=== PATIENT | female | born 1965 | race Two or more races ===

== ENCOUNTER 2022-01-25 10:13 | Inpatient (IN) | payer BC ==
[2022-01-25] MEDS ORDERED: DILTIAZEM DRIP BOLUS FROM BAG 1 MG SOLN IV ONE (10:41)
--- NOTE | 2022-01-25 10:47 | ED ---
General Adult HPI - General Chief complaint: Altered Mental Status Stated complaint: Altered mental status Time Seen by Provider: 01/25/22 10:27 Source: patient, family Mode of arrival: ambulatory Limitations: no limitations - History of Present Illness Initial comments: Dictation was produced using [employer] dictation software. please excuse any gram matical, word or spelling errors. Chief Complaint: 56-year-old female presents to the emergency department for altered mental status History of Present Illness: Patient is a 56-year-old female she presents to the emergency department for altered mental status. Patient presents with was away on a work trip recently. He was gone for the majority of the week. Patient was at home by herself. They have dogs. came back yesterday. notes that while he was away he tried to contact threw the phone. States that she was not able to use her phone. She was able to send a short attacks. He came back yesterday noticed that she was very confused. She has not seen a doctor in 30+ years. Patient unable to provide history of present illness at this time. states the patient told her that she had a slight headache yesterday but denied any headache today. Patient to 's knowledge does not take any medications. believes that patient's last known normal was Thursday. Unable to obtain review of systems secondary to patient's mental status PHYSICAL EXAM: General Impression: Alert and oriented 1 out of 4, not in acute distress HEENT: Normocephalic atraumatic, extra-ocular movements intact, pupils equal and reactive to light bilaterally, mucous membranes moist. Cardiovascular: Irregular, tachycardic Chest: no retractions, no tachypnea Abdomen: abdomen soft, non-tender, non-distended, no organomegaly Musculoskeletal: Pulses present and equal in all extremities, no peripheral edema Motor: no focal deficits noted Neurological: CN II-XII grossly intact, patient moving all extremity is grossly, she is an ambulatory with no complications, patient uncooperative not follow commands, NIH of 3 Skin: Intact with no visualized rashes Psych: Normal affect and mood ED course: 56-year-old female presents emergency department for altered mental status. Vital signs done in triage shows heart rate of 85, blood pressure 181/144. EKG shows A. fib with rapid ventricular rate with a rate of 175. Patient does have focal neurologic deficits. Patient given an NIH score of 3-4. She's not candidate for alteplase given that last known normal was likely several days ago. reports the patient does not have a history of A. fib. Patient started on Cardizem. Laboratory evaluation obtained. CBC unremarkable. Coag panel is negative. Metabolic panel shows mild non-gap acidosis. Rest of labs are within acceptable limits. Computed tomography scan of the brain shows acute versus subacute CVA the left frontoparietal region extending into the left temporal lobe with encephalomalacia of the right inferior temporal lobe. CT angiogram of the CT and neck shows occlusion of the left anterior segment of the middle cerebral artery. Case is discussed with Dr. Nash who recommends the patient be admitted for hospital. He does recommend aspirin and withholding anticoagulation medications for 2-3 days. Patient given aspirin. Patient's RVR is improved with Cardizem. Patient will be admitted to [facility]. Case discussed with Dr. Denise. Cardiology and neurology consulted. EKG interpretation: Ventricular rate one 75, A. fib with RVR, QS 70, QTC 340. no QTC prolongation, no ST or T-wave changes noted. - Related Data Home Medications Medication Instructions Recorded Confirmed No Known Home Medications 01/25/22 01/25/22 Allergies Allergy/AdvReac Type Severity Reaction Status Date / Time No Known Allergies Allergy Verified 01/25/22 11:42 Review of Systems ROS Statement: Those systems with pertinent positive or pertinent negative responses have been documented in the HPI. ROS Other: All systems not noted in ROS Statement are negative. Past Medical History Past Medical History: No Reported History History of Any Multi-Drug Resistant Organisms: None Reported Past Surgical History: No Surgical Hx Reported Past Psychological History: No Psychological Hx Reported Smoking Status: Never smoker Past Alcohol Use History: Occasional Past Drug Use History: None Reported General Exam Limitations: no limitations Course Vital Signs 01/25/22 01/25/22 10:16 10:30 Temperature 97.7 F Pulse Rate 85 160 H Respiratory 18 18 Rate Blood Pressure 181/144 162/110 O2 Sat by Pulse 97 98 Oximetry Medical Decision Making - Lab Data Result diagrams: 01/25/22 10:44 01/25/22 10:44 Lab Results 01/25/22 01/25/22 01/25/22 Range/Units 10:44 10:44 10:44 WBC 6.9 (3.8-10.6) k/uL RBC 5.91 H (3.80-5.40) m/uL Hgb 16.0 (11.4-16.0) gm/dL Hct 50.6 H (34.0-46.0) % MCV 85.7 (80.0-100.0) fL MCH 27.0 (25.0-35.0) pg MCHC 31.6 (31.0-37.0) g/dL RDW 15.9 H (11.5-15.5) % Plt Count 170 (150-450) k/uL MPV 8.2 Neutrophils % 64 % Lymphocytes % 25 % Monocytes % 6 % Eosinophils % 1 % Basophils % 0 % Neutrophils # 4.4 (1.3-7.7) k/uL Lymphocytes # 1.7 (1.0-4.8) k/uL Monocytes # 0.4 (0-1.0) k/uL Eosinophils # 0.1 (0-0.7) k/uL Basophils # 0.0 (0-0.2) k/uL Hypochromasia Slight PT 11.8 (9.0-12.0) sec INR 1.1 (<1.2) APTT 22.7 (22.0-30.0) sec Sodium 138 (137-145) mmol/L Potassium 4.3 (3.5-5.1) mmol/L Chloride 108 H (98-107) mmol/L Carbon Dioxide 19 L (22-30) mmol/L Anion Gap 11 mmol/L BUN 21 H (7-17) mg/dL Creatinine 0.68 (0.52-1.04) mg/dL Est GFR (CKD-EPI)AfAm >90 (>60 ml/min/1.73 sqM) Est GFR (CKD-EPI)NonAf >90 (>60 ml/min/1.73 sqM) Glucose 110 H (74-99) mg/dL Calcium 9.7 (8.4-10.2) mg/dL Total Bilirubin 1.7 H (0.2-1.3) mg/dL AST 47 H (14-36) U/L ALT 40 H (4-34) U/L Alkaline Phosphatase 189 H (38-126) U/L Troponin I (0.000-0.034) ng/mL Total Protein 8.0 (6.3-8.2) g/dL Albumin 4.2 (3.5-5.0) g/dL 01/25/22 Range/Units 10:44 WBC (3.8-10.6) k/uL RBC (3.80-5.40) m/uL Hgb (11.4-16.0) gm/dL Hct (34.0-46.0) % MCV (80.0-100.0) fL MCH (25.0-35.0) pg MCHC (31.0-37.0) g/dL RDW (11.5-15.5) % Plt Count (150-450) k/uL MPV Neutrophils % % Lymphocytes % % Monocytes % % Eosinophils % % Basophils % % Neutrophils # (1.3-7.7) k/uL Lymphocytes # (1.0-4.8) k/uL Monocytes # (0-1.0) k/uL Eosinophils # (0-0.7) k/uL Basophils # (0-0.2) k/uL Hypochromasia PT (9.0-12.0) sec INR (<1.2) APTT (22.0-30.0) sec Sodium (137-145) mmol/L Potassium (3.5-5.1) mmol/L Chloride (98-107) mmol/L Carbon Dioxide (22-30) mmol/L Anion Gap mmol/L BUN (7-17) mg/dL Creatinine (0.52-1.04) mg/dL Est GFR (CKD-EPI)AfAm (>60 ml/min/1.73 sqM) Est GFR (CKD-EPI)NonAf (>60 ml/min/1.73 sqM) Glucose (74-99) mg/dL Calcium (8.4-10.2) mg/dL Total Bilirubin (0.2-1.3) mg/dL AST (14-36) U/L ALT (4-34) U/L Alkaline Phosphatase (38-126) U/L Troponin I 0.028 (0.000-0.034) ng/mL Total Protein (6.3-8.2) g/dL Albumin (3.5-5.0) g/dL Critical Care Time Critical Care Time: Yes Total Critical Care Time: 33 Disposition Clinical Impression: CVA (cerebral vascular accident), New onset a-fib Disposition: ADMITTED IP TO THIS HOSP Condition: Critical Referrals: None,Stated [Primary Care Provider] - 1-2 days
[2022-01-25] MEDS: DILTIAZEM 125 MG in SODIUM CHLORIDE 0.9% 100 ML IV SCH ×2 (10:52→21:47)
[2022-01-25 10:55] LABS: Basophils % (A) 0 %; Eosinophils # (A) 0.1 k/uL (0-0.7); Eosinophils % (A) 1 %; HCT 50.6 % (34.0-46.0); Hypochromasia Slight; Lymphocytes # (A) 1.7 k/uL (1.0-4.8); Lymphocytes % (A) 25 %; MCHC 31.6 g/dL (31.0-37.0); MCV 85.7 fL (80.0-100.0); Mean Platelet Volume 8.2; Monocytes # (A) 0.4 k/uL (0-1.0); Monocytes % (A) 6 %; Neutrophils # (A) 4.4 k/uL (1.3-7.7); Neutrophils % (A) 64 %; Platelet Count 170 k/uL (150-450); RBC 5.91 m/uL (3.80-5.40); RDW 15.9 % (11.5-15.5); WBC 6.9 k/uL (3.8-10.6)
[2022-01-25 11:03] LABS: ALT 40 U/L (4-34); AST 47 U/L (14-36); African American GFR (CKD) >90 (>60 ml/min/1.73 sqM); Albumin 4.2 g/dL (3.5-5.0); Alkaline Phosphatase 189 U/L (38-126); Anion Gap 11 mmol/L; Blood Urea Nitrogen 21 mg/dL (7-17); Calcium 9.7 mg/dL (8.4-10.2); Carbon Dioxide 19 mmol/L (22-30); Chloride 108 mmol/L (98-107); Glucose 110 mg/dL (74-99); Non-African American GFR(CKD) >90 (>60 ml/min/1.73 sqM); Potassium 4.3 mmol/L (3.5-5.1); Sodium 138 mmol/L (137-145); Total Bilirubin 1.7 mg/dL (0.2-1.3)
[2022-01-25 11:07] LABS: INR 1.1 (<1.2); Prothrombin Time 11.8 sec (9.0-12.0)
[2022-01-25 11:08] LABS: Partial Thromboplastin Time 22.7 sec (22.0-30.0)
--- NOTE | 2022-01-25 11:21 | CT ---
EXAMINATION TYPE: CT brain wo con CT DLP: 1136.8 mGycm, Automated exposure control for dose reduction was used. DATE OF EXAM: 01/25/2022 11:07 AM COMPARISON: None. CLINICAL INDICATION:Female, 56 years old with history of cva, Neuro Deficit TECHNIQUE: Brain: Multiple axial CT images of the brain were obtained without IV contrast. FINDINGS: Brain: Extra-axial spaces: No abnormal extra-axial fluid collections. 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 Cerebral parenchyma: There is loss of lewis-white differentiation of the left frontal parietal region extending into the right temporal lobe. Encephalomalacia of the and inferior right temporal lobe. No acute intraparenchymal hemorrhage or mass effect. The remainder of the lewis-white junctions are well differentiated. Cerebellum: Unremarkable. Mass effect: No evidence of midline shift. Intracranial vasculature: unremarkable Soft tissues: Normal. Calvarium/osseous structures: No depressed skull fracture. Paranasal sinuses and mastoid air cells: Mild scattered paranasal sinus disease. Visualized orbits: Orbital contents are intact. IMPRESSION: 1. Acute/subacute CVA of the left frontal parietal region extending into the left temporal lobe. 2. Encephalomalacia of the right inferior temporal lobe from remote injury.
[2022-01-25] MEDS ORDERED: ASPIRIN 81 MG PO STA (11:49)
--- NOTE | 2022-01-25 11:56 | CT ---
EXAMINATION TYPE: CT angio head neck CT DLP: 414.5 mGycm, Automated exposure control for dose reduction was used. DATE OF EXAM: 01/25/2022 11:32 AM COMPARISON: CT head same day.. CLINICAL INDICATION:Female, 56 years old with history of neurologic deficit, Neuro Deficit TECHNIQUE: Axially acquired helical CT angiogram of the head and neck was obtained with contrast util izing 75 cc of Isovue-370 administered intravenously. Axial images are supplemented with 3D reconstru ctions which were post-processed at an independent workstation. NASCET criteria used. FINDINGS: CTA HEAD: No evidence of acute intracranial hemorrhage, mass effect, or midline shift. The ventricles, sulci, a nd cisterns are unremarkable. Redemonstration of left frontal parietal region infarct extending into the temporal lobe. Encephaloma lacia of the right inferior temporal lobe. Left MCA M2 segment demonstrates abrupt cut off. The visualized portions of the internal carotid arteries, right middle cerebral arteries, anterior ce rebral arteries, and posterior cerebral arteries are patent. The basilar and vertebral arteries are patent. CTA NECK: Right Carotid System: The common carotid artery and external carotid artery are patent. The carotid bifurcation demonstrate s no evidence of hemodynamically significant stenosis. The remaining portions of the internal carotid artery demonstrate normal size without significant narrowing. Left Carotid System: The common carotid artery and external carotid artery are patent. The carotid bifurcation demonstrate s no evidence of hemodynamically significant stenosis. The remaining portions of the internal carotid artery demonstrate normal size without significant narrowing. Vertebral arteries are patent without evidence hemodynamically significant stenosis. There is a three-vessel aortic arch. The origins of the great vessels are patent. No evidence of hemo dynamically significant stenosis. There is a heterogenous thyroid gland scattered nodules. Intralobular septal thickening is seen withi n the lung apices. IMPRESSION: 1. Abrupt cut off of the left M2 segment of the MCA consistent with occlusion. 2. No evidence of dissection of the cervical internal carotid arteries or vertebral arteries or any evidence of significant stenosis at the carotid bifurcations. 3. No evidence of intracranial aneurysm. Redemonstration of encephalomalacia of remote right temporal lobe injury and acute/subacute CVA of th e left frontal parietal extending to the temporal lobe.
--- NOTE | 2022-01-25 14:12 | P.CRDCN ---
History of Present Illness Consult date: 01/25/22 History of present illness: History of Present Illness: The patient is a 56-year-old female who has not seen a physician in over 30 years who is brought into the emergency room with confusion. The history is obtained from her . Apparently he was out of town on business last week and when he called her and the texted her on she did not answer. He returned to town on Thursday and she was somewhat confused and that persisted today. She is moving, he did not notice a slurred speech but she appears to be unable to answer questions. She came into the emergency room and was noted to be in atrial fibrillation of unknown duration. She recalls that she went out for dinner on Thursday and she did not like the food but she cannot remember what happened on or yesterday. She denies any palpitations, chest discomfort or dyspnea. She has no prior history of PND, orthopnea or peripheral edema. She is usually active physically, walks the dog without symptoms. She has no history of documented diabetes, hypertension or hyperlipidemia but as noted she has not seen a physician in a long time. She takes no medication at home. She drinks caffeine occasionally and alcohol on a social basis. Review of Systems: Respiratory: No history of asthma, bronchitis or recent cough. GI: She had nausea and vomiting today. No history of peptic ulcer disease. No recent GI bleed. : No hematuria or dysuria. Nervous System: She has symptoms of confusion of unknown etiology Physical Examination: 56-year-old female alert confused, not able to answer question appropriately. Blood pressure running in the 160/120 with a heart rate in the 120s. Head: Normocephalic. Eyes: Sclerae nonicteric. Neck: Good carotid upstroke, no bruit, no jugular venous distention. Lungs: Clear to auscultation. Heart: Irregular rate and rhythm, tachycardic, S1-S2, no S3, no rub. No murmur. Abdomen: Soft nontender, positive bowel sounds no organomegaly. Extremities: Trace edema, intact distal pulses. Labs: Hemoglobin 5.9, BUN 21, creatinine 0.68, potassium 4.3. Total bilirubin 1.7, AST 47, ALT 40 with alk phos of 189. Troponin 0.028. EKG shows atrial fibrill ation with rapid ventricular response and nonspecific ST-T wave changes. Brain CT showed a subacute CVA of the left frontal parietal region extending to the left temporal lobe. CT angiogram of the carotids showed no evidence of high- grade obstruction except an abrupt cutoff of the left M2 segment of the MCA. Impression: 1. Acute CVA presenting with confusion 2. Atrial fibrillation of unknown duration with rapid ventricle response 3. Abnormal liver function test of unknown etiology or duration 4. Hypertension of unknown duration. Plan: 1. Obtain an echocardiogram with Doppler 2. Add beta heladio to control ventricular response and add hydrochlorothiazide for better blood pressure control, avoid an acute drop in the blood pressure. Continue IV Cardizem for now. 3. Follow liver function test 4. The patient will need to be anticoagulated but we will await 48 hours to prevent conversion to a hemorrhagic stroke 5. Depending on her progress further recommendations will be made. I discussed with the patient and her the findings and recommendations. Thank you for this consult we will follow with you. Past Medical History Past Medical History: No Reported History History of Any Multi-Drug Resistant Organisms: None Reported Past Surgical History: No Surgical Hx Reported Past Psychological History: No Psychological Hx Reported Smoking Status: Never smoker Past Alcohol Use History: Occasional Past Drug Use History: None Reported Medications and Allergies Home Medications Medication Instructions Recorded Confirmed Type No Known Home Medications 01/25/22 01/25/22 History Allergies Allergy/AdvReac Type Severity Reaction Status Date / Time No Known Allergies Allergy Verified 01/25/22 11:42 Physical Exam Vitals: Vital Signs Temp Pulse Resp BP Pulse Ox 01/25/22 12:00 126 H 20 166/128 98 01/25/22 11:30 125 H 16 161/126 98 01/25/22 11:00 128 H 16 170/121 99 01/25/22 10:45 136 H 16 151/123 99 01/25/22 10:30 145 H 16 163/125 99 01/25/22 10:16 97.7 F 85 18 181/144 97 Intake and Output 01/24/22 01/25/22 01/25/22 22:59 06:59 14:59 Other: Weight 84.912 kg Results 01/25/22 10:44 01/25/22 10:44 Cardiac Enzymes 01/25/22 01/25/22 Range/Units 10:44 10:44 AST 47 H (14-36) U/L Troponin I 0.028 (0.000-0.034) ng/mL Coagulation 01/25/22 Range/Units 10:44 PT 11.8 (9.0-12.0) sec APTT 22.7 (22.0-30.0) sec CBC 01/25/22 Range/Units 10:44 WBC 6.9 (3.8-10.6) k/uL RBC 5.91 H (3.80-5.40) m/uL Hgb 16.0 (11.4-16.0) gm/dL Hct 50.6 H (34.0-46.0) % Plt Count 170 (150-450) k/uL Comprehensive Metabolic Panel 01/25/22 Range/Units 10:44 Sodium 138 (137-145) mmol/L Potassium 4.3 (3.5-5.1) mmol/L Chloride 108 H (98-107) mmol/L Carbon Dioxide 19 L (22-30) mmol/L BUN 21 H (7-17) mg/dL Creatinine 0.68 (0.52-1.04) mg/dL Glucose 110 H (74-99) mg/dL Calcium 9.7 (8.4-10.2) mg/dL AST 47 H (14-36) U/L ALT 40 H (4-34) U/L Alkaline Phosphatase 189 H (38-126) U/L Total Protein 8.0 (6.3-8.2) g/dL Albumin 4.2 (3.5-5.0) g/dL Current Medications Generic Name Dose Route Start Last Admin Trade Name Freq PRN Reason Stop Dose Admin Aspirin 81 mg 01/27/22 09:00 Aspirin 81 Mg PO DAILY [facility] Atorvastatin Calcium 80 mg 01/25/22 21:00 Atorvastatin 80 Mg Tab PO HS [facility] Docusate Sodium 100 mg 01/25/22 21:00 Docusate 100 Mg Cap PO BID [facility] Diltiazem HCl 125 mg/ Sodium 125 mls @ 10 mls/hr 01/25/22 11:00 01/25/22 10:52 Chloride IV 10 mg/hr .[id number] KAMILAH 10 mls/hr Administration 10 MG/HR Sodium Chloride 1,000 mls @ 100 mls/hr 01/25/22 12:15 Saline 0.9% IV .Q10H KAMILAH Metoprolol Tartrate 25 mg 01/25/22 21:00 Metoprolol Tartrate 25 Mg Tab PO BID KAMILAH Intake and Output 01/24/22 01/25/22 01/25/22 22:59 06:59 14:59 Other: Weight 84.912 kg Patient Weight 01/26/22 06:59 Weight 84.912 kg 01/25/22 10:44 01/25/22 10:44
--- NOTE | 2022-01-25 14:58 | XR ---
EXAMINATION TYPE: XR chest 1V portable DATE OF EXAM: 01/25/2022 COMPARISON: NONE HISTORY: Atrial fibrillation TECHNIQUE: Single view FINDINGS: Heart is enlarged. There is some pulmonary vascular congestion. There are chest leads. Cost ophrenic angles are clear. IMPRESSION: Mild congestive heart failure.
[2022-01-25] MEDS: SODIUM CHLORIDE 0.9% 1,000 ML IV SCH ×2 (15:09→21:55)
[2022-01-25] MEDS: hydroCHLOROthiazide 25 MG TAB PO SCH (15:10)
--- NOTE | 2022-01-25 15:25 | P.HPIM ---
History of Present Illness H&P Date: 01/25/22 Chief Complaint: Confusion, expressive aphasia 56-year-old woman with no documented past medical history, though she has not seen a physician for the last 30 years, never smoker, no family history of heart attack or stroke presented to the emergency department with 2-3 days of increased confusion, especially aphasia. Apparently her went on a work trip, and while he was gone, patient was not able to answer her phone, when he returned from a trip, he noted that his was quite confused, having trouble getting words out. When I ask her if she is having trouble expressing her thoughts, she nods to me that she is having this issue. When I asked her if she feels clear of thought, but having trouble translating that actual words, she nods again. Patient denies fevers, chills, nausea, vomiting, chest pain, palpitations, syncope, presyncope, cough, dyspnea, abdominal pain, constipation, diarrhea, dysuria, dyschezia, numbness/weakness of extremities. Patient denies any loss of sensation in all 4 extremities. In the emergency room, patient is afebrile, 166/128, heart rate is 126, 98% on room air. CBC is unremarkable. Chemistries are remarkable for mild non-anion gap acidosis, elevated BUN to 21. She also has mildly elevated bilirubin to 1.7, AST/ALT 47/40, alkaline phosphatase is 189. Initial troponin is negative. Coagulation profile is normal. Initial brain CT showed acute/subacute CVA of the left frontal parietal region extending into the left temporal lobe as well as encephalomalacia of the right inferior temporal lobe from remote injury. CT angiography of the head and neck shows abrupt cut off of the left M2 segment of the MCA consistent with occlusion with no evidence of dissection in the cervical internal carotid arteries and vertebral arteries. Patient's neck showed EKG demonstrated atrial fibrillation with rapid ventricular response to 175. Chest x-ray demonstrates cardiomegaly with mild venous congestion. These findings were discussed with Dr. Nash, neuro interventionalist, who recommended medical management considering the duration of symptoms. He also recommended holding off on anticoagulation for at least 48 hours if not longer. In the interim, patient was given aspirin, started on statin. Patient did pass bedside swallow. Patient was admitted to the hospitalist service for further management, neurolo gy and cardiology were consulted for further recommendations. All Systems reviewed and pertinent positives and negatives noted in HPI, all other symptoms are negative Gen: awake, alert HEENT: normocephalic, atraumatic, good hearing acuity, moist mucous membranes Resp: good air exchange, breathing comfortably with no accessory muscle use CVS: good distal perfusion x 4, GI: soft, NTTP, ND : no SPT, no CVAT, hernandez catheter not present MSK: no pitting edema, no clubbing Neuro: non-focal, moving all extremities with 5 out of 5 motor strength, no reported loss of sensation to light touch, expressive aphasia, mild right-sided chela-neglect Psych: cooperative, euthymic mood Labs and imaging were reviewed as above Assessment/plan: Acute embolic stroke Hypertensive urgency -Admit to inpatient, telemetry -Cardiology consult -Neurology consult -Aspirin 325 once, followed by aspirin 81 mg daily -Hold off on anticoagulation for 2-5 days, defer to neurology -Continue statin -PT/OT -Speech therapy -Started hydrochlorothiazide -Lipid panel, A1c, TSH with reflex to free T4 -Echocardiogram -MRI of the brain Paroxysmal atrial fibrillation with rapid ventricular response -Anticoagulation as above -Continue diltiazem drip Volume overload Elevated liver enzymes -Suspect secondary to heart failure -Started the hydrochlorothiazide by cardiology -Follow up echocardiogram as above -Ultrasound of the liver -BNP pending Patient is a full code DVT prophylaxis is on hold given size of the stroke and risk of hemorrhagic conversion Past Medical History Past Medical History: No Reported History History of Any Multi-Drug Resistant Organisms: None Reported Past Surgical History: No Surgical Hx Reported Past Psychological History: No Psychological Hx Reported Smoking Status: Never smoker Past Alcohol Use History: Occasional Past Drug Use History: None Reported Medications and Allergies Home Medications Medication Instructions Recorded Confirmed Type No Known Home Medications 01/25/22 01/25/22 History Allergies Allergy/AdvReac Type Severity Reaction Status Date / Time No Known Allergies Allergy Verified 01/25/22 11:42 Physical Exam Osteopathic Statement: *. No significant issues noted on an osteopathic structural exam other than those noted in the History and Physical/Consult. Vitals: Vital Signs Temp Pulse Resp BP Pulse Ox 01/25/22 12:00 126 H 20 166/128 98 01/25/22 11:30 125 H 16 161/126 98 01/25/22 11:00 128 H 16 170/121 99 01/25/22 10:45 136 H 16 151/123 99 01/25/22 10:30 145 H 16 163/125 99 01/25/22 10:16 97.7 F 85 18 181/144 97 Intake and Output 01/25/22 01/25/22 01/25/22 06:59 14:59 22:59 Other: Weight 84.912 kg Results CBC & Chem 7: 01/25/22 10:44 01/25/22 10:44 Labs: Abnormal Lab Results - Last 24 Hours (Table) 01/25/22 01/25/22 Range/Units 10:44 10:44 RBC 5.91 H (3.80-5.40) m/uL Hct 50.6 H (34.0-46.0) % RDW 15.9 H (11.5-15.5) % Chloride 108 H (98-107) mmol/L Carbon Dioxide 19 L (22-30) mmol/L BUN 21 H (7-17) mg/dL Glucose 110 H (74-99) mg/dL Total Bilirubin 1.7 H (0.2-1.3) mg/dL AST 47 H (14-36) U/L ALT 40 H (4-34) U/L Alkaline Phosphatase 189 H (38-126) U/L
[2022-01-25 16:12] LABS: T4, Free (Free Thyroxine) >6.99 ng/dL (0.78-2.19)
[2022-01-25 16:23] LABS: Glucose,Whole Blood 77 mg/dL (75-99)
--- NOTE | 2022-01-25 16:48 | ECHOF ---
Referral Reason:Thrombus MEASUREMENTS -------- HEIGHT: 170.2 cm WEIGHT: 84.8 kg BP: IVSd: 1.1 cm (0.6 - 1.1) LVIDd: 5.6 cm (3.9 - 5.3) LVPWd: 1.2 cm (0.6 - 1.1) EDV(Teich): 152 ml IVSs: 1.3 cm LVIDs: 4.8 cm LVPWs: 1.6 cm %IVS Thck: 18 % ESV(Teich): 108 ml EF(Teich): 29 % %FS: 14 % SV(Teich): 43 ml RVIDd: 2.9 cm (< 3.3) RA Diam: 6.2 cm LALs A4C: 7.4 cm LAAs A4C: 32.5 cm LAESV A-L A4C: 122 ml LAESV MOD A4C: 117 ml LALs A2C: 6.5 cm LAAs A2C: 33.3 cm LAESV A-L A2C: 145 ml LAESV MOD A2C: 136 ml LAESV(A-L): 142 ml LAESV Index (A-L): 72.01 ml/m Ao Diam: 3.1 cm (2.0 - 3.7) LA Diam: 4.4 cm (2.7 - 3.8) AV Cusp: 1.7 cm (1.5 - 2.6) EPSS: 1.7 cm LVOT Vmax: 1.23 m/s LVOT maxP.02 mmHg AV Vmax: 1.36 m/s AV maxP.38 mmHg TR Vmax: 3.22 m/s TR maxP.52 mmHg RAP: 5.00 mmHg RVSP: 46.52 mmHg %FS: 12.35 % EDV(Teich): 155.09 ml EF(Teich): 26.27 % ESV(Teich): 114.34 ml IVSd: 1.32 cm (0.6 - 1.1) IVSs: 1.39 cm LVIDd: 5.62 cm (3.9 - 5.3) LVIDs: 4.93 cm LVPWd: 1.28 cm (0.6 - 1.1) LVPWs: 1.67 cm MV EF SLOPE: 127.89 mm/s (70 - 150) MV EXCURSION: 18.39 mm (> 18.000) SV(Teich): 40.75 ml FINDINGS -------- Atrial fibrillation. This was a technically difficult study with suboptimal views. The left ventricle is mildly dilated. There is mild concentric left ventricular hypertrophy. Ther e is severe global hypokinesis of LV . Overall left ventricular systolic function is severely impai red with, an EF between 25 - 30 %. The right ventricle is normal in size. LA is severely dilated >40 ml/m2 The right atrium is moderately enlarged. xx ml of Lumason was utilized for enhancement of images. Interatrial and interventricular septum intact. There is mild aortic valve sclerosis. There is no evidence of aortic regurgitation. There is no e vidence of aortic stenosis. The mitral valve leaflets are mildly thickened. Moderate mitral regurgitation is present. Moderate tricuspid regurgitation present. There is moderate pulmonary hypertension. The right yu tricular systolic pressure, as measured by Doppler, is 46.52mmHg. The pulmonic valve was not well visualized. There is no pulmonic regurgitation present. Possible Thrombus in LV Tennyson The aortic root size is normal. There is no pericardial effusion. CONCLUSIONS -------- 1. Atrial fibrillation. 2. This was a technically difficult study with suboptimal views. 3. The left ventricle is mildly dilated. 4. There is mild concentric left ventricular hypertrophy. 5. There is severe global hypokinesis of LV . 6. Overall left ventricular systolic function is severely impaired with, an EF between 25 - 30 %. 7. LA is severely dilated >40 ml/m2 8. The right atrium is moderately enlarged. 9. There is mild aortic valve sclerosis. 10. Moderate mitral regurgitation is present. 11. Moderate tricuspid regurgitation present. 12. There is moderate pulmonary hypertension. 13. Possible Thrombus in LV Tennyson NUT SHELLER: Sonja Okeefe RDCS
[2022-01-25 17:31] LABS: Glucose,Whole Blood 79 mg/dL (75-99)
[2022-01-25 18:30] LABS: Glucose,Whole Blood 96 mg/dL (75-99)
--- NOTE | 2022-01-25 19:00 | US ---
EXAMINATION TYPE: US abdomen complete DATE OF EXAM: 01/25/2022 COMPARISON: NONE CLINICAL HISTORY: elevated liver enzymes. Elevated LFT's EXAM MEASUREMENTS: Liver Length: 13.0 cm Gallbladder Wall: 0.2 cm CBD: 0.3 cm Spleen: Unable to visualize Right Kidney: 10.7 x 4.5 x 4.4 cm Left Kidney: 9.5 x 4.8 x 5.2 cm AMS, poor historian, anxious pt, limited visualization Pancreas: Obscured by bowel gas Liver: Coarse echotexture Gallbladder: Two probable polyps visualized, larger one posterior wall Evidence for sonographic Gallegos's sign: No CBD: wnl Spleen: Obscured by overlying bowel gas Right Kidney: wnl, lower pole gassed out Left Kidney: No evidence of hydro, mostly gassed out Upper IVC: wnl Abd Aorta: Obscured by overlying bowel gas IMPRESSION: 10 mm nonshadowing echogenic foci in the gallbladder probably related to polyps. No defin ite gallstones. No dilated ducts. No free fluid.
[2022-01-25] MEDS ORDERED: HEPARIN SODIUM 1,000 UN/ML (10ML VL) IV PRN (19:13)
[2022-01-25] MEDS ORDERED: FUROSEMIDE 10 MG/ML 4 ML VIAL IV STA (19:18)
[2022-01-25 20:01] LABS: Basophils % (A) 0 %; Eosinophils % (A) 0 %; HCT 49.4 % (34.0-46.0); HGB 15.7 gm/dL (11.4-16.0); Hypochromasia Slight; Lymphocytes # (A) 2.5 k/uL (1.0-4.8); Lymphocytes % (A) 32 %; MCH 27.6 pg (25.0-35.0); MCHC 31.8 g/dL (31.0-37.0); MCV 86.8 fL (80.0-100.0); Mean Platelet Volume 9.5; Monocytes # (A) 0.6 k/uL (0-1.0); Monocytes % (A) 7 %; Neutrophils # (A) 4.3 k/uL (1.3-7.7); Neutrophils % (A) 56 %; Platelet Count 186 k/uL (150-450); RDW 15.8 % (11.5-15.5); WBC 7.6 k/uL (3.8-10.6)
[2022-01-25 20:11] LABS: INR 1.2 (<1.2); Prothrombin Time 12.4 sec (9.0-12.0)
[2022-01-25] MEDS: HEPARIN SOD,PORK IN 0.45% NACL 25,000 UNIT in 0.45% NACL 1 250ML.BAG IV SCH (20:44)
[2022-01-25] MEDS ORDERED: METOPROLOL TARTRATE 25 MG TAB PO SCH (21:00)
[2022-01-25] MEDS: ATORVASTATIN 80 MG TAB PO SCH (21:17)
[2022-01-25] MEDS: DOCUSATE 100 MG CAP PO SCH (21:17)
[2022-01-25] MEDS: methIMAzole 5 MG TAB PO SCH (21:48)
--- NOTE | 2022-01-25 23:13 | P.CNNES ---
History of Present Illness Consult date: 01/25/22 Requesting physician: Sagar Denise Reason for Consult: Acute embolic stroke History of Present Illness: Patient is a 52-year-old right-handed female who was brought to the hospital this morning at 10:16 a.m. for altered mental status, and speech difficulty. Patient's was also present, who provided most of the history. Patient's has gone to a trip to [place] from Thursday through Thursday past week. He noticed that patient stopped exiting or contacting him on , 2 days ago. The last asked he received from her was from 11:44 AM on . When he came back home yesterday on Thursday at 5 PM, he noticed that she was slightly disoriented, but physically was okay, walking well, complaining of some headache. They went to bed at 9 PM. This morning patient's asked her why she was not responding to assist asked, she mentioned that she did not know how to use a phone. Patient's got concerned and brought her to the urgent care, from where they were referred to [facility]. Patient's vitals on arrival blood pressure 181/144, which came down to 162/110. Pulse rate 85, temperature 97.7. Patient's blood tests shows WBC 6.9 hemoglobin 16.0, platelets are normal. PT/PTT is normal. Electrolytes and renal functions normal. AST 47, ALT 40, troponin negative, TSH is <0.015, free T4 is > 6.99. Computed tomography scan of the head revealed acute/subacute CVA of the left frontal parietal region extending into the left temporal lobe. Encephalomalacia of the right inferior temporal lobe from remote injury. I personally reviewed computed tomography scan of the head, and it appears that patient has 3 different ischemic strokes of 3 different chronicity. The most recent is involving the left occipital region, then the left posterior parietal region and the most older one involving the right posterior temporal region. No hemorrhagic conversion. CTA of head and neck showed an abrupt cutoff of the left M2 segment of the MCA consistent with occlusion. No evidence of dissection of the cervical internal carotid arteries or vertebral arteries or any evidence of significant stenosis at the carotid bifurcations. No evidence of intracranial aneurysm. Redemonstration of encephalomalacia of remote right temporal lobe injury and acute/subacute CVA of the left frontal parietal extending to the left temporal lobe. EKG shows atrial fibrillation with rapid ventricular rate. This is new onset. Patient denies any history of tobacco, drinks alcohol very occasionally, denies any blood pressure or diabetes. She is otherwise healthy, only takes vitamins including vitamin D and multivitamins and some glucosamine. The nurses reported that patient has impaired judgment. When she is trying to drink water with the right hand, she spills it over on her face. Review of Systems Patient has been having some sinus congestion, cough. Denies any chest pain, denies any visual symptoms, she does feel very tired. She admits to having some difficulty swallowing, but could not tell detail as if it was related to liquids or solid food items. Patient has some tremors. Denies any fever or chills. All other 14 point review systems reviewed, unremarkable except as per HPI. Past Medical History Past Medical History: No Reported History History of Any Multi-Drug Resistant Organisms: None Reported Past Surgical History: No Surgical Hx Reported Past Psychological History: No Psychological Hx Reported Smoking Status: Never smoker Past Alcohol Use History: Occasional Past Drug Use History: None Reported Medications and Allergies Home Medications Medication Instructions Recorded Confirmed Type No Known Home Medications 01/25/22 01/25/22 History Allergies Allergy/AdvReac Type Severity Reaction Status Date / Time No Known Allergies Allergy Verified 01/25/22 11:42 Physical Examination - Vital Signs Vital Signs: Vital Signs Temp Pulse Pulse Resp BP BP Pulse Ox 01/25/22 16:53 98.2 F 92 18 190/93 94 L 01/25/22 12:00 126 H 20 166/128 98 01/25/22 11:30 125 H 16 161/126 98 01/25/22 11:00 128 H 16 170/121 99 01/25/22 10:45 136 H 16 151/123 99 01/25/22 10:30 145 H 16 163/125 99 01/25/22 10:16 97.7 F 85 18 181/144 97 Intake and Output 01/25/22 01/25/22 01/25/22 06:59 14:59 22:59 Other: Weight 84.912 kg 84.912 kg Patient is a middle aged female, who appears slightly older than her stated age. Patient is alert awake oriented, appears obviously aphasic. Patient able to name simple objects like years, then, but could not name knuckles. She has some paraphasic errors, as she stated "contacts" for eyeglasses presented. She cannot repeat, although she follows directions to some extent. Patient could not read "point to the window", or follow this direction. She was able to read one word "apple". She has not fully fluent. Significant word hesitancy, halted speech. Attention, concentration and fund of knowledge is very limited due to aphasia. On cranial examination, pupils are equal, round and reacting to light, visual f ields revealed obvious right homonymous hemianopia. Her extraocular muscles are intact with no nystagmus. Face is symmetric, tongue protrudes to the midline. Palatal elevation and sensation normal, hearing and shoulder shrug normal, facial sensation normal. Shoulder shrug normal. On muscle strength testing, there is right upward pronation, no drift and the strength is normal in arms and legs distally and proximally. Deep tendon reflexes are 2 in the upper limbs, 1+ in the lower limbs and p lantars downgoing. Sensory to touch is equal with no neglect. Cerebellar function showed ataxia for [id number] testing on the right, partly due to homonymous hemianopia with impaired judgment. Tone and bulk of muscles normal. Gait deferred, but patient's states she has been walking fine. On general examination, there is no carotid bruit or murmur, S1-S2 audible. Abdomen is soft nontender. Chest is clear. Peripheral pulses are present. No edema. Results - Laboratory Findings CBC and BMP: 01/25/22 19:37 01/25/22 10:44 Abnormal Lab Findings: Abnormal Labs 01/25/22 01/25/22 01/25/22 10:44 10:44 10:44 RBC 5.91 H Hct 50.6 H RDW 15.9 H Chloride 108 H Carbon Dioxide 19 L BUN 21 H Glucose 110 H Total Bilirubin 1.7 H AST 47 H ALT 40 H Alkaline Phosphatase 189 H TSH <0.015 L Free T4 >6.99 H Assessment and Plan Assessment: * Acute ischemic stroke, multifocal region, most likely related to cardioembolism. Patient has significant expressive aphasia, right homonymous hemianopia. * New onset atrial fibrillation with rapid ventricular rate. * New onset CHF with decreased ejection fraction * Hyperthyroidism, newly diagnosed. * Abnormal hepatic enzymes. * Hypertension Plan: * Patient's 2-D echo revealed atrial fibrillation, left ventricle is mildly dilated. Mild concentric LVH. Severe global hypokinesis of left ventricle. Left ventricle systolic function is severely impaired with EF between 25-30%. Left atrium is severely dilated. Right atrium is moderately dilated. Possible thrombus in the left ventricular apex. * Although initial recommendation was to hold off on anticoagulation for 5 days, but based upon the 2-D echo report, and presence of possible thrombus in the left ventricle, the benefits of anticoagulation significantly outweigh the potential risk of hemorrhagic side effects. Patient will be started on low intensity heparin infusion without bolus. * Patient will be continued on aspirin 81 mg. * Fasting a.m. lipid panel, hemoglobin A1c. * Continue telemetry monitoring. * Keep systolic blood pressure <160, diastolic <110. * MRI of brain evaluate for acute stroke, rule out hemorrhagic conversion. * Treatment of hyperthyroidism as per IM. Patient to be transferred to ICU. * Discussed with primary physician, and patient's family in detail. * Neurology will follow. Thank you for the consult. Time with Patient: Greater than 30 (Complexity very high.)
[2022-01-26 00:01] LABS: Glucose,Whole Blood 94 mg/dL (75-99)
[2022-01-26 04:06] LABS: Basophils # (A) 0.1 k/uL (0-0.2); Basophils % (A) 1 %; Eosinophils % (A) 0 %; HCT 51.6 % (34.0-46.0); HGB 15.9 gm/dL (11.4-16.0); Hypochromasia Slight; Lymphocytes # (A) 1.8 k/uL (1.0-4.8); Lymphocytes % (A) 24 %; MCH 26.6 pg (25.0-35.0); MCHC 30.7 g/dL (31.0-37.0); MCV 86.6 fL (80.0-100.0); Mean Platelet Volume 9.6; Monocytes # (A) 0.6 k/uL (0-1.0); Monocytes % (A) 8 %; Neutrophils # (A) 4.9 k/uL (1.3-7.7); Neutrophils % (A) 64 %; Platelet Count 179 k/uL (150-450); RBC 5.95 m/uL (3.80-5.40); RDW 15.4 % (11.5-15.5); WBC 7.6 k/uL (3.8-10.6)
[2022-01-26 04:15] LABS: African American GFR (CKD) >90 (>60 ml/min/1.73 sqM); Anion Gap 14 mmol/L; Blood Urea Nitrogen 18 mg/dL (7-17); Calcium 9.6 mg/dL (8.4-10.2); Carbon Dioxide 21 mmol/L (22-30); Chloride 102 mmol/L (98-107); Glucose 96 mg/dL (74-99); Magnesium 1.6 mg/dL (1.6-2.3); Non-African American GFR(CKD) >90 (>60 ml/min/1.73 sqM); Potassium 3.7 mmol/L (3.5-5.1); Sodium 137 mmol/L (137-145)
[2022-01-26 04:19] LABS: INR 1.2 (<1.2); Partial Thromboplastin Time 34.6 sec (22.0-30.0); Prothrombin Time 12.6 sec (9.0-12.0)
[2022-01-26 05:52] LABS: Glucose,Whole Blood 83 mg/dL (75-99)
[2022-01-26] MEDS: DILTIAZEM 125 MG in SODIUM CHLORIDE 0.9% 100 ML IV SCH (07:32)
--- NOTE | 2022-01-26 09:18 | P.PN ---
Subjective Progress Note Date: 01/26/22 History of Present Illness: The patient is a 56-year-old female who has not seen a physician in over 30 ye ars who is brought into the emergency room with confusion. The history is obtained from her . Apparently he was out of town on business last week and when he called her and the texted her on she did not answer. He returned to town on Thursday and she was somewhat confused and that persisted today. She is moving, he did not notice a slurred speech but she appears to be unable to answer questions. She came into the emergency room and was noted to be in atrial fibrillation of unknown duration. She recalls that she went out for dinner on Thursday and she did not like the food but she cannot remember what happened on or yesterday. She denies any palpitations, chest discomfort or dyspnea. She has no prior history of PND, orthopnea or peripheral edema. She is usually active physically, walks the dog without symptoms. She has no history of documented diabetes, hypertension or hyperlipidemia but as noted she has not seen a physician in a long time. She takes no medication at home. She drinks caffeine occasionally and alcohol on a social basis. January 26: The patient has been transferred to the ICU. She remains awake but confused. In atrial fibrillation with controlled ventricular response. Her echocardiogram yesterday showed severe cardiomyopathy with possible apical thrombus. She had moderate mitral and tricuspid regurgitation. She continues to be on IV Cardizem and was started on IV heparin yesterday. There is evidence of severe hyperthyroidism that could be the cause of her atrial fibrillation. Physical Examination: Blood pressure 118/70 with a heart rate in the 70s, awake alert confused, not sure where she is Head: Normocephalic. Eyes: Sclerae nonicteric. Neck: Good carotid upstroke, no bruit, no jugular venous distention. Lungs: Clear to auscultation. Heart: Irregular rate and rhythm, S1-S2, no S3, no rub. Holosystolic murmur at the base. Abdomen: Soft nontender, positive bowel sounds no organomegaly. Extremities: No edema, intact distal pulses. Labs: BUN 18, creatinine 0.67, potassium 3.7, hemoglobin 15.9 Impression: 1. CVA with abnormal CT angiogram 2. Atrial fibrillation of unknown duration 3. Cardiomyopathy, severe of unknown duration or etiology was possible apical thrombus 4. Hyperthyroidism 5. Confusion related to the stroke Plan: 1. Stop IV Cardizem and increase beta heladio 2. Add low dose DUSTIN inhibitor 3. Continue anticoagulation 4. Treatment of hyperthyroidism her primary care physician 5. The findings were discussed with the patient and her . Objective - Vital Signs Vital signs: Vital Signs Temp 98.2 F 01/26/22 04:00 Pulse 72 01/26/22 07:00 Resp 21 01/26/22 07:00 BP 118/77 01/26/22 07:00 Pulse Ox 93 L 01/26/22 07:00 Intake & Output 01/25/22 01/26/22 01/26/22 18:59 06:59 18:59 Intake Total 561.023 122.5 Output Total 2050 0 Balance -1488.977 122.5 Weight 84.912 kg 85 kg Intake: IV 375 25 Sodium Chloride 0.9% 1, 375 25 000 ml @ 25 mls/hr IV . Q24H KAMILAH Rx#:[id number] Intake, IV Titration 186.023 97.5 Amount Diltiazem 125 mg In 109.167 97.5 Sodium Chloride 0.9% 100 ml @ 10 MG/HR 10 mls/hr IV .[id number] KAMILAH Rx#: [id number] Heparin Sod,Pork in 0.45% 76.856 NaCl 25,000 unit In 0.45 % NaCl 1 250ml.bag @ 11. 78 UNITS/KG/HR 10.003 mls /hr IV .Q24H KAMILAH Rx#: [id number] Output: Urine 2050 0 Other: Voiding Method Toilet Bedpan # Voids 1 - Labs CBC & Chem 7: 01/26/22 03:42 01/26/22 03:42 Labs: Abnormal Lab Results - Last 24 Hours (Table) 01/25/22 01/25/22 01/25/22 Range/Units 10:44 10:44 10:44 RBC 5.91 H (3.80-5.40) m/uL Hct 50.6 H (34.0-46.0) % MCHC (31.0-37.0) g/dL RDW 15.9 H (11.5-15.5) % PT (9.0-12.0) sec INR (<1.2) APTT (22.0-30.0) sec Chloride 108 H (98-107) mmol/L Carbon Dioxide 19 L (22-30) mmol/L BUN 21 H (7-17) mg/dL Glucose 110 H (74-99) mg/dL Total Bilirubin 1.7 H (0.2-1.3) mg/dL AST 47 H (14-36) U/L ALT 40 H (4-34) U/L Alkaline Phosphatase 189 H (38-126) U/L TSH <0.015 L (0.465-4.680) mIU/L Free T4 >6.99 H (0.78-2.19) ng/dL 01/25/22 01/25/22 01/26/22 Range/Units 19:37 19:37 03:42 RBC 5.70 H (3.80-5.40) m/uL Hct 49.4 H (34.0-46.0) % MCHC (31.0-37.0) g/dL RDW 15.8 H (11.5-15.5) % PT 12.4 H (9.0-12.0) sec INR 1.2 H (<1.2) APTT (22.0-30.0) sec Chloride (98-107) mmol/L Carbon Dioxide 21 L (22-30) mmol/L BUN 18 H (7-17) mg/dL Glucose (74-99) mg/dL Total Bilirubin (0.2-1.3) mg/dL AST (14-36) U/L ALT (4-34) U/L Alkaline Phosphatase (38-126) U/L TSH <0.015 L (0.465-4.680) mIU/L Free T4 (0.78-2.19) ng/dL 01/26/22 01/26/22 Range/Units 03:42 03:42 RBC 5.95 H (3.80-5.40) m/uL Hct 51.6 H (34.0-46.0) % MCHC 30.7 L (31.0-37.0) g/dL RDW (11.5-15.5) % PT 12.6 H (9.0-12.0) sec INR 1.2 H (<1.2) APTT 34.6 H (22.0-30.0) sec Chloride (98-107) mmol/L Carbon Dioxide (22-30) mmol/L BUN (7-17) mg/dL Glucose (74-99) mg/dL Total Bilirubin (0.2-1.3) mg/dL AST (14-36) U/L ALT (4-34) U/L Alkaline Phosphatase (38-126) U/L TSH (0.465-4.680) mIU/L Free T4 (0.78-2.19) ng/dL
[2022-01-26] MEDS: methIMAzole 5 MG TAB PO SCH ×3 (09:50→21:10)
[2022-01-26] MEDS: HYDROCORTISONE SUCCINATE 100 MG/2 ML VIAL IV SCH ×3 (09:50→23:49)
[2022-01-26] MEDS: DOCUSATE 100 MG CAP PO SCH ×2 (09:50→20:27)
[2022-01-26] MEDS: hydroCHLOROthiazide 25 MG TAB PO SCH (10:48)
[2022-01-26] MEDS: SPIRONOLACTONE 25 MG TAB PO SCH (10:48)
--- NOTE | 2022-01-26 10:48 | P.CNPUL ---
History of Present Illness Consult date: 01/26/22 Requesting physician: Sagar Denise Reason for consult: other (ICU management) Chief complaint: Altered mental status and speech difficulty History of present illness: This is a 52-year-old female, no previous medical history . Patient was brought into the ER yesterday morning around 10:16 AM with relatively acute onset of altered mental status and speech difficulty. The patient herself is a very poor historian however her volunteered most of the information. Apparently she was in her normal state until and he was out of town, patient suddenly stopped next thing him, and he was in a trip to [place]. Last text from the to the was around 11:44 AM on . Patient came back home on Thursday at 5 PM, and he clearly noticed right away that his was disoriented, confused, otherwise she was physically fine. Patient was complaining at the time of mild headache. The did not think much of it until the following day noticed that the patient remained about the same and she was brought into the ER. Patient was brought in around and a.m. on Thursday, and she was noted to have elevated blood pressure of 181/144. She was also noted to have elevated T4 and low TSH. And she was in atrial fibrillation with RVR. CT of the head showed subacute CVA of the left frontal parietal region extending into the left temporal lobe. Patient was admitted, she was seen by urology on consultation, and CT angiogram of the head and neck showed abrupt cutoff of the left M2 segment of the middle cerebral artery consistent with occlusion. Echocardiogram showed left ventricular thrombus patient was admitted, started on heparin, and this consult was initiated. Last night I was made aware of this patient, and I'll arrange for the patient to be admitted to the ICU for close monitoring. In the meantime I believe the patient is in the process of being transferred to [facility]. For her hyperthyroidism, patient was started on Tapazole. During my evaluation, the patient was clearly confused, she had no idea where she was, she had some difficulty with the speech, and she clearly has impaired and judgment. He knew however the name of her she did not know the name of the present or the city she lives in. Echocardiogram also showed impaired systolic function with ejection fraction of 25-30%. Patient is now on low intensity heparin. And she is also on aspirin. Being followed closely by neurology and by cardiology on the case. MRI of the brain is scheduled. Review of Systems ROS unobtainable: due to mental status Past Medical History Past Medical History: No Reported History History of Any Multi-Drug Resistant Organisms: None Reported Past Surgical History: No Surgical Hx Reported Past Psychological History: No Psychological Hx Reported Smoking Status: Never smoker Past Alcohol Use History: Occasional Past Drug Use History: None Reported Medications and Allergies Home Medications Medication Instructions Recorded Confirmed Type No Known Home Medications 01/25/22 01/25/22 History Allergies Allergy/AdvReac Type Severity Reaction Status Date / Time No Known Allergies Allergy Verified 01/25/22 11:42 Physical Exam Vitals: Vital Signs Temp Pulse Pulse Resp BP BP Pulse Ox 01/26/22 10:00 89 15 144/77 91 L 01/26/22 09:30 71 20 127/91 93 L 01/26/22 09:00 89 22 130/85 93 L 01/26/22 08:30 82 11 L 136/89 94 L 01/26/22 08:00 98.0 F 80 23 119/85 91 L 01/26/22 07:30 69 16 117/77 93 L 01/26/22 07:00 72 21 118/77 93 L 01/26/22 06:30 89 17 122/87 92 L 01/26/22 06:00 67 19 131/85 91 L 01/26/22 05:30 74 20 132/75 92 L 01/26/22 05:00 81 22 115/95 91 L 01/26/22 04:30 82 26 H 150/71 92 L 01/26/22 04:00 98.2 F 80 18 130/80 92 L 01/26/22 03:30 98 44 H 128/88 92 L 01/26/22 03:00 93 30 H 122/77 89 L 01/26/22 02:30 61 19 113/93 89 L 01/26/22 02:00 76 33 H 115/64 88 L 01/26/22 01:30 77 37 H 127/87 94 L 01/26/22 01:00 78 16 126/72 93 L 01/26/22 00:30 74 18 118/82 91 L 01/26/22 00:00 72 22 90 L 01/25/22 23:30 71 16 117/77 92 L 01/25/22 23:00 73 29 H 124/95 92 L 01/25/22 22:30 71 28 H 124/95 88 L 01/25/22 22:00 86 25 H 156/109 94 L 01/25/22 21:30 104 H 32 H 156/109 92 L 01/25/22 21:00 116 H 18 157/116 93 L 01/25/22 20:30 105 H 26 H 157/116 94 L 01/25/22 20:00 99.0 F 112 H 23 136/117 93 L 01/25/22 19:10 110 H 30 H 92 L 01/25/22 19:00 126 H 22 136/117 93 L 01/25/22 18:30 99.0 F 104 H 20 135/90 94 L 01/25/22 16:53 98.2 F 92 18 190/93 94 L 01/25/22 14:00 120 H 18 01/25/22 12:00 126 H 20 166/128 98 01/25/22 11:30 125 H 16 161/126 98 01/25/22 11:00 128 H 16 170/121 99 01/25/22 10:45 136 H 16 151/123 99 Intake and Output 01/25/22 01/26/22 01/26/22 22:59 06:59 14:59 Intake Total 284.167 276.856 172.5 Output Total 1250 800 325 Balance -965.833 -523.144 -152.5 Intake: IV 175 200 75 Sodium Chloride 0.9% 1, 175 200 75 000 ml @ 25 mls/hr IV . Q24H KAMILAH Rx#:[id number] Intake, IV Titration 109.167 76.856 97.5 Amount Diltiazem 125 mg In 109.167 97.5 Sodium Chloride 0.9% 100 ml @ 10 MG/HR 10 mls/hr IV .[id number] KAMILAH Rx#: [id number] Heparin Sod,Pork in 0.45% 76.856 NaCl 25,000 unit In 0.45 % NaCl 1 250ml.bag @ 11. 78 UNITS/KG/HR 10.003 mls /hr IV .Q24H KAMILAH Rx#: [id number] Output: Urine 1250 800 325 Other: Voiding Method Bedpan Bedpan Bedpan # Voids 1 1 Weight 84.912 kg 85 kg Physical Exam: Revealed 56-year-old female in no distress, seems however a bit confused. Head: Atraumatic, normocephalic. HEENT:[Neck is supple.] [No neck masses.] [No thyromegaly.] [No JVD.] PERRLA, EOMI, nonicteric, moist mucous membranes. Chest: [Clear throughout, no crackles, no rhonchi, no wheezes.] Cardiac Exam: [Normal S1 and S2, no S3 gallop, no murmur.] Abdomen: [Soft, nontender, no megaly, no rebound, no guarding, normal bowel sounds.] Extremities: [No clubbing, no edema, no cyanosis.] Neurological Exam: Patient is confused, did not know where she was, did not know the name of the president, did not know the city she lives in. Has a bit of difficulty with his speech, had difficulty following instructions. Patient has no evidence of nystagmus. Face is symmetric. Had difficulty protruding her tongue. Minimal right upward pronation on the right side. Had difficulty following instructions. Psychiatric: Normal mood, blunt affect, impaired judgment Skin: No rashes Results - Laboratory Findings CBC and BMP: 01/26/22 03:42 01/26/22 03:42 PT/INR, D-dimer PT 12.6 sec (9.0-12.0) H 01/26/22 03:42 INR 1.2 (<1.2) H 01/26/22 03:42 Abnormal lab findings: Abnormal Labs 01/25/22 01/25/22 01/25/22 10:44 10:44 10:44 RBC 5.91 H Hct 50.6 H MCHC RDW 15.9 H PT INR APTT Chloride 108 H Carbon Dioxide 19 L BUN 21 H Glucose 110 H Total Bilirubin 1.7 H AST 47 H ALT 40 H Alkaline Phosphatase 189 H TSH <0.015 L Free T4 >6.99 H 01/25/22 01/25/22 01/26/22 19:37 19:37 03:42 RBC 5.70 H Hct 49.4 H MCHC RDW 15.8 H PT 12.4 H INR 1.2 H APTT Chloride Carbon Dioxide 21 L BUN 18 H Glucose Total Bilirubin AST ALT Alkaline Phosphatase TSH <0.015 L Free T4 01/26/22 01/26/22 03:42 03:42 RBC 5.95 H Hct 51.6 H MCHC 30.7 L RDW PT 12.6 H INR 1.2 H APTT 34.6 H Chloride Carbon Dioxide BUN Glucose Total Bilirubin AST ALT Alkaline Phosphatase TSH Free T4 - Diagnostic Findings Chest x-ray: image reviewed (No evidence of any active disease. Slight promi nence of the pulmonary vasculature.) Additional studies: Angiography CT and brain CT as noted in HPI. Echocardiogram as noted in HPI. Abdominal ultrasound showed possible polyp in gallbladder otherwise negative Assessment and Plan Assessment: Impression: Acute ischemic stroke, possibly related to cardiac embolism or could be related to thromboembolic disease involving the MCA. New onset atrial fibrillation with RVR Mild systolic congestive heart failure New onset hyperthyroidism Benign essential hypertension Elevated liver enzymes could be related to her congestive heart failure/congestive hepatopathy. Recommendation: Agree with low intensity heparin Agree with Cardizem and this was changed to beta blockers by cardiology. Continue anticoagulation therapy. Benefits of anticoagulation outweighs the risks. Continue Tapazole. Continue to monitor blood pressure and treat accordingly patient is now on DUSTIN inhibitor. Continue to monitor liver enzymes and thyroid profile. Agree with possible transfer to tertiary care center, apparently transfer plans are in progress. We continue to follow while in the ICU. Discussed her condition with the at bedside. Time with Patient: Greater than 30
[2022-01-26] MEDS ORDERED: FUROSEMIDE 10 MG/ML 2 ML VIAL IV STA (10:49)
--- NOTE | 2022-01-26 11:47 | P.PN ---
Subjective Progress Note Date: 01/26/22 No new complaints today. No new focal deficits. Pt found to have global hypokinesis, EF 25-30%, LV Thrombus, Thyrotoxicosis yesterday. Gen: awake, alert HEENT: normocephalic, atraumatic, good hearing acuity, moist mucous membranes Resp: good air exchange, breathing comfortably with no accessory muscle use CVS: good distal perfusion x 4, GI: soft, NTTP, ND : no SPT, no CVAT, hernandez catheter not present MSK: no pitting edema, no clubbing Neuro: non-focal, moving all extremities with 5 out of 5 motor strength, no reported loss of sensation to light touch, expressive aphasia, mild right-sided chela-neglect Psych: cooperative, euthymic mood Assessment: Acute embolic stroke Hypertensive urgency Thyrotoxicosis Acute Systolic Heart Failure, EF 25-30% LV Thrombus Congestive Hepatopathy Paroxysmal atrial fibrillation with rapid ventricular response Plan: -Admit to inpatient, telemetry -Cardiology consult -Neurology consult -Aspirin 325 once, followed by aspirin 81 mg daily -started heparin gtt given thrombus -Continue statin -PT/OT -Speech therapy -Started hydrochlorothiazide -Lipid panel, A1c, TSH with reflex to free T4 -Echocardiogram with global EF reduction and hypokinesis to 25-30%, LV thrombus, RVE -MRI of the brain, pending -methimazole, metoprolol, hydrocortisone -lisinopril, aldactone Dispo: plan for transfer to [place] if bed becomes available, otherwise, continue present management Patient is a full code DVT prophylaxis is on hold given size of the stroke and risk of hemorrhagic conversion Objective - Vital Signs Vital signs: Vital Signs Temp 98.0 F 01/26/22 08:00 Pulse 89 01/26/22 11:00 Resp 17 01/26/22 11:00 BP 134/71 01/26/22 11:00 Pulse Ox 91 L 01/26/22 11:00 Intake & Output 01/25/22 01/26/22 01/26/22 18:59 06:59 18:59 Intake Total 561.023 237.167 Output Total 1530 325 Balance -1488.977 -87.833 Weight 84.912 kg 85 kg Intake: IV 375 125 Sodium Chloride 0.9% 1, 375 125 000 ml @ 25 mls/hr IV . Q24H KAMILAH Rx#:[id number] Intake, IV Titration 186.023 112.167 Amount Diltiazem 125 mg In 109.167 112.167 Sodium Chloride 0.9% 100 ml @ 10 MG/HR 10 mls/hr IV .[id number] KAMILAH Rx#: [id number] Heparin Sod,Pork in 0.45% 76.856 NaCl 25,000 unit In 0.45 % NaCl 1 250ml.bag @ 11. 78 UNITS/KG/HR 10.003 mls /hr IV .Q24H KAMILAH Rx#: [id number] Output: Urine 0 325 Other: Voiding Method Toilet Bedpan Bedpan # Voids 1 - Labs CBC & Chem 7: 01/26/22 03:42 01/26/22 03:42 Labs: Abnormal Lab Results - Last 24 Hours (Table) 01/25/22 01/25/22 01/25/22 Range/Units 10:44 19:37 19:37 RBC 5.70 H (3.80-5.40) m/uL Hct 49.4 H (34.0-46.0) % MCHC (31.0-37.0) g/dL RDW 15.8 H (11.5-15.5) % PT 12.4 H (9.0-12.0) sec INR 1.2 H (<1.2) APTT (22.0-30.0) sec Carbon Dioxide (22-30) mmol/L BUN (7-17) mg/dL TSH <0.015 L (0.465-4.680) mIU/L Free T4 >6.99 H (0.78-2.19) ng/dL 01/26/22 01/26/22 01/26/22 Range/Units 03:42 03:42 03:42 RBC 5.95 H (3.80-5.40) m/uL Hct 51.6 H (34.0-46.0) % MCHC 30.7 L (31.0-37.0) g/dL RDW (11.5-15.5) % PT 12.6 H (9.0-12.0) sec INR 1.2 H (<1.2) APTT 34.6 H (22.0-30.0) sec Carbon Dioxide 21 L (22-30) mmol/L BUN 18 H (7-17) mg/dL TSH <0.015 L (0.465-4.680) mIU/L Free T4 (0.78-2.19) ng/dL 01/26/22 Range/Units 10:52 RBC (3.80-5.40) m/uL Hct (34.0-46.0) % MCHC (31.0-37.0) g/dL RDW (11.5-15.5) % PT (9.0-12.0) sec INR (<1.2) APTT 44.2 H (22.0-30.0) sec Carbon Dioxide (22-30) mmol/L BUN (7-17) mg/dL TSH (0.465-4.680) mIU/L Free T4 (0.78-2.19) ng/dL
[2022-01-26 11:52] LABS: Glucose,Whole Blood 135 mg/dL (75-99)
[2022-01-26 11:56] LABS: Chol/HDL Ratio 3.46 Ratio; LDL Cholesterol,Calculated 106.1 mg/dL (0.0-131.0); VLDL Calculation 11.94 mg/dL (5.00-40.00)
--- NOTE | 2022-01-26 14:38 | CT ---
EXAMINATION TYPE: CT brain wo con DATE OF EXAM: 01/26/2022 COMPARISON: 06/27/2022 HISTORY: CVA, new onset a fib, change in mental status CT DLP: 1071.4 mGycm Automated exposure control for dose reduction was used. Images of the brain obtained without contrast. There is 7 x 4 cm wedge-shaped area of hypodensity in the left posterior temporal lobe extending into the occipital lobe and consistent with infarct. There is no mass effect upon the left lateral ventri mc. There is no midline shift. There is enlargement of the subarachnoid space at the floor of the ri t middle cranial fossa but could relate to arachnoid cyst or old encephalomalacia. This measures 1 cm in thickness. The calvarium is intact. There is normal aeration of the mastoid sinuses. IMPRESSION: Left temporal lobe infarct without change. Arachnoid cyst or encephalomalacia at the base of the righ t temporal lobe without change. No hemorrhage.
[2022-01-26 15:09] LABS: ALT 37 U/L (4-34); AST 42 U/L (14-36); African American GFR (CKD) >90 (>60 ml/min/1.73 sqM); Albumin 4.2 g/dL (3.5-5.0); Alkaline Phosphatase 175 U/L (38-126); Anion Gap 13 mmol/L; Blood Urea Nitrogen 21 mg/dL (7-17); Calcium 9.6 mg/dL (8.4-10.2); Carbon Dioxide 22 mmol/L (22-30); Chloride 99 mmol/L (98-107); Glucose 186 mg/dL (74-99); Non-African American GFR(CKD) 87 (>60 ml/min/1.73 sqM); Potassium 3.9 mmol/L (3.5-5.1); Sodium 134 mmol/L (137-145); Total Bilirubin 1.7 mg/dL (0.2-1.3); Total Protein 8.1 g/dL (6.3-8.2)
[2022-01-26] MEDS: HEPARIN SOD,PORK IN 0.45% NACL 25,000 UNIT in 0.45% NACL 1 250ML.BAG IV SCH (17:18)
[2022-01-26 18:12] LABS: Glucose,Whole Blood 139 mg/dL (75-99)
[2022-01-26] MEDS: ATORVASTATIN 80 MG TAB PO SCH (20:27)
[2022-01-26] MEDS: METOPROLOL TARTRATE 50 MG TAB PO SCH (20:27)
[2022-01-26 23:47] LABS: Glucose,Whole Blood 165 mg/dL (75-99)
--- NOTE | 2022-01-26 23:47 | P.PN ---
Subjective Progress Note Date: 01/26/22 Patient was seen for a follow-up. Patient's was also present today. Patient is doing slightly better. Patient continues to repeat "I'm not quite sure". She would say "it doesn't make sense". Patient denies headache, no blurred vision. Continues to be a phasic. Objective - Vital Signs Vital signs: Vital Signs Temp 98.6 F 01/26/22 20:00 Pulse 96 01/26/22 22:00 Resp 16 01/26/22 22:00 BP 120/96 01/26/22 22:00 Pulse Ox 94 L 01/26/22 22:00 Intake & Output 01/26/22 01/26/22 01/27/22 06:59 18:59 06:59 Intake Total 561.023 922.915 30 Output Total 2049 1924 195 Balance -1488.977 -1002.085 -165 Weight 85 kg Intake: IV 375 300 30 Sodium Chloride 0.9% 1, 375 300 30 000 ml @ 25 mls/hr IV . Q24H KAMILAH Rx#:[id number] Intake, IV Titration 186.023 262.915 Amount Diltiazem 125 mg In 109.167 112.167 Sodium Chloride 0.9% 100 ml @ 10 MG/HR 10 mls/hr IV .[id number] KAMILAH Rx#: [id number] Heparin Sod,Pork in 0.45% 76.856 150.748 NaCl 25,000 unit In 0.45 % NaCl 1 250ml.bag @ 11. 78 UNITS/KG/HR 10.003 mls /hr IV .Q24H KAMILAH Rx#: [id number] Oral 360 Output: Urine 2049 Other: Voiding Method Bedpan Bedpan Indwelling Catheter # Voids 1 - Exam Patient is alert and awake. Patient speaks phrases like "it doesn't make sense". "I'm not quite sure". Patient today could name herself as well as her Jerzy. Patient couldn't name a few objects like a pen. She could not tell what city she lives in. Patient's states that she is aware of what is going on the TV, "pie rates of the [place]". He feels that she is doing better. Patient has right homonymous hemianopia. Patient has right upper drift. Her ataxia on the right has improved. Sensations appears equal. - Labs CBC & Chem 7: 01/26/22 03:42 01/26/22 13:56 Labs: Abnormal Lab Results - Last 24 Hours (Table) 01/26/22 01/26/22 01/26/22 Range/Units 03:42 03:42 03:42 RBC 5.95 H (3.80-5.40) m/uL Hct 51.6 H (34.0-46.0) % MCHC 30.7 L (31.0-37.0) g/dL PT 12.6 H (9.0-12.0) sec INR 1.2 H (<1.2) APTT 34.6 H (22.0-30.0) sec Sodium (137-145) mmol/L Carbon Dioxide 21 L (22-30) mmol/L BUN 18 H (7-17) mg/dL Glucose (74-99) mg/dL POC Glucose (mg/dL) (75-99) mg/dL Total Bilirubin (0.2-1.3) mg/dL AST (14-36) U/L ALT (4-34) U/L Alkaline Phosphatase (38-126) U/L TSH <0.015 L (0.465-4.680) mIU/L Free T4 (0.78-2.19) ng/dL 01/26/22 01/26/22 01/26/22 Range/Units 10:52 11:51 13:56 RBC (3.80-5.40) m/uL Hct (34.0-46.0) % MCHC (31.0-37.0) g/dL PT (9.0-12.0) sec INR (<1.2) APTT 44.2 H (22.0-30.0) sec Sodium 134 L (137-145) mmol/L Carbon Dioxide (22-30) mmol/L BUN 21 H (7-17) mg/dL Glucose 186 H (74-99) mg/dL POC Glucose (mg/dL) 135 H (75-99) mg/dL Total Bilirubin 1.7 H (0.2-1.3) mg/dL AST 42 H (14-36) U/L ALT 37 H (4-34) U/L Alkaline Phosphatase 175 H (38-126) U/L TSH (0.465-4.680) mIU/L Free T4 (0.78-2.19) ng/dL 01/26/22 01/26/22 Range/Units 13:56 18:11 RBC (3.80-5.40) m/uL Hct (34.0-46.0) % MCHC (31.0-37.0) g/dL PT (9.0-12.0) sec INR (<1.2) APTT (22.0-30.0) sec Sodium (137-145) mmol/L Carbon Dioxide (22-30) mmol/L BUN (7-17) mg/dL Glucose (74-99) mg/dL POC Glucose (mg/dL) 139 H (75-99) mg/dL Total Bilirubin (0.2-1.3) mg/dL AST (14-36) U/L ALT (4-34) U/L Alkaline Phosphatase (38-126) U/L TSH (0.465-4.680) mIU/L Free T4 >6.99 H (0.78-2.19) ng/dL Assessment and Plan Assessment: * Acute ischemic stroke, multifocal region, most likely related to cardioembolism. Patient has significant expressive aphasia, right homonymous hemianopia. * New onset atrial fibrillation with rapid ventricular rate. * New onset CHF with decreased ejection fraction * Hyperthyroidism, newly diagnosed. * Abnormal hepatic enzymes. * Hypertension Plan: * Patient is doing better as per examination above. * Repeat computed tomography scan of head performed today showed no new change, no hemorrhagic conversion. * Patient's 2-D echo revealed atrial fibrillation, left ventricle is mildly dilated. Mild concentric LVH. Severe global hypokinesis of left ventricle. Left ventricle systolic function is severely impaired with EF between 25-30%. Left atrium is severely dilated. Right atrium is moderately dilated. Possible thrombus in the left ventricular apex. * Continue heparin IV, PTT is 44.2. * Patient will be continued on aspirin 81 mg. * Fasting a.m. lipid panel with cholesterol 166, LDL 106, HDL 48 and triglycerides 59. Continue Lipitor 80 mg daily. * Hemoglobin A1c 6.0. * Continue telemetry monitoring. * Keep systolic blood pressure <160, diastolic <110. Avoid hypotension. * MRI of brain evaluate for acute stroke, rule out hemorrhagic conversion. * Treatment of hyperthyroidism as per IM. * Awaiting transfer to higher level of care. * Dr. Orville Monahan Will resume neurology service in the morning.
[2022-01-26 23:50] LABS: Glucose,Whole Blood 152 mg/dL (75-99)
[2022-01-27 06:05] LABS: Glucose,Whole Blood 131 mg/dL (75-99)
[2022-01-27 08:14] LABS: HCT 52.3 % (34.0-46.0); Hypochromasia Slight; MCH 28.3 pg (25.0-35.0); MCHC 32.5 g/dL (31.0-37.0); MCV 87.1 fL (80.0-100.0); Mean Platelet Volume 10.9; Platelet Count 178 k/uL (150-450); RDW 15.5 % (11.5-15.5); WBC 6.7 k/uL (3.8-10.6)
--- NOTE | 2022-01-27 08:28 | P.PN ---
Subjective History of Present Illness: The patient is a 56-year-old female who has not seen a physician in over 30 years who is brought into the emergency room with confusion. The history is obtained from her . Apparently he was out of town on business last week and when he called her and the texted her on she did not answer. He returned to town on Thursday and she was somewhat confused and that persisted today. She is moving, he did not notice a slurred speech but she appears to be unable to answer questions. She came into the emergency room and was noted to be in atrial fibrillation of unknown duration. She recalls that she went out for dinner on Thursday and she did not like the food but she cannot remember what happened on or yesterday. She denies any palpitations, chest discomfort or dyspnea. She has no prior history of PND, orthopnea or peripheral edema. She is usually active physically, walks the dog without symptoms. She has no history of documented diabetes, hypertension or hyperlipidemia but as noted she has not seen a physician in a long time. She takes no medication at home. She drinks caffeine occasionally and alcohol on a social basis. January 26: The patient has been transferred to the ICU. She remains awake but confused. In atrial fibrillation with controlled ventricular response. Her echocardiogram yesterday showed severe cardiomyopathy with possible apical thrombus. She had moderate mitral and tricuspid regurgitation. She continues to be on IV Cardizem and was started on IV heparin yesterday. There is evidence of severe hyperthyroidism that could be the cause of her atrial fibrillation. 01/27 Patient seen and examined. Patient did have a further episode of confusion how ever this morning feeling somewhat better and believes aphasia somewhat improving. Heart rates have been better controlled mainly 90s to 110s still in A. fib. She denies any chest pain or pressure, no shortness breath. Patient has been started on methimazole as well as site Cortef for hyperthyroidism. Physical Examination: Vitals reviewed Head: Normocephalic. Eyes: Sclerae nonicteric. Neck: Good carotid upstroke, no bruit, no jugular venous distention. Lungs: Clear to auscultation. Heart: Irregular rate and rhythm, S1-S2, no S3, no rub. Holosystolic murmur at the base. Abdomen: Soft nontender, positive bowel sounds no organomegaly. Extremities: No edema, intact distal pulses. Impression: 1. CVA with abnormal CT angiogram 2. Atrial fibrillation of unknown duration with mild RVR 3. Cardiomyopathy, severe of unknown duration or etiology with possible apical thrombus. Likely tachycardia induced 4. Hyperthyroidism 5. Confusion related to the stroke Plan: Continue to optimize heart failure regimen. Continue treatment of hyperthyroid state with methimazole and better control of hyperthyroidism will allow better heart rate control. Occasionally propranolol has better treatment for hyperthyroidism however at this time appears to be tolerating metoprolol well and we will continue with current dose. Would defer ischemic work up until after patient recovers neurologically and from a hyperthyroid state. High likelihood of tachycardia induced cardiomyopathy and patient denies any angina- type symptoms. Continue supportive care. Further recommendations follow. Objective - Vital Signs Vital signs: Vital Signs Temp 98.9 F 01/27/22 04:00 Pulse 75 01/27/22 07:00 Resp 14 01/27/22 07:00 BP 113/81 01/27/22 07:00 Pulse Ox 93 L 01/27/22 07:00 Intake & Output 01/26/22 01/27/22 01/27/22 18:59 06:59 18:59 Intake Total 922.915 110 10 Output Total 1925 615 50 Balance -1002.085 -505 -40 Weight 81.8 kg Intake: IV 300 110 10 Sodium Chloride 0.9% 1, 300 110 10 000 ml @ 25 mls/hr IV . Q24H KAMILAH Rx#:[id number] Intake, IV Titration 262.915 Amount Diltiazem 125 mg In 112.167 Sodium Chloride 0.9% 100 ml @ 10 MG/HR 10 mls/hr IV .[id number] KAMILAH Rx#: [id number] Heparin Sod,Pork in 0.45% 150.748 NaCl 25,000 unit In 0.45 % NaCl 1 250ml.bag @ 11. 78 UNITS/KG/HR 10.003 mls /hr IV .Q24H KAMILAH Rx#: [id number] Oral 360 Output: Urine 1925 615 50 Other: Voiding Method Bedpan Indwelling Catheter - Labs CBC & Chem 7: 01/27/22 07:10 01/26/22 13:56 Labs: Abnormal Lab Results - Last 24 Hours (Table) 01/26/22 01/26/22 01/26/22 Range/Units 10:52 11:51 13:56 RBC (3.80-5.40) m/uL Hgb (11.4-16.0) gm/dL Hct (34.0-46.0) % APTT 44.2 H (22.0-30.0) sec Sodium 134 L (137-145) mmol/L BUN 21 H (7-17) mg/dL Glucose 186 H (74-99) mg/dL POC Glucose (mg/dL) 135 H (75-99) mg/dL Total Bilirubin 1.7 H (0.2-1.3) mg/dL AST 42 H (14-36) U/L ALT 37 H (4-34) U/L Alkaline Phosphatase 175 H (38-126) U/L Free T4 (0.78-2.19) ng/dL 01/26/22 01/26/22 01/26/22 Range/Units 13:56 18:11 23:45 RBC (3.80-5.40) m/uL Hgb (11.4-16.0) gm/dL Hct (34.0-46.0) % APTT (22.0-30.0) sec Sodium (137-145) mmol/L BUN (7-17) mg/dL Glucose (74-99) mg/dL POC Glucose (mg/dL) 139 H 165 H (75-99) mg/dL Total Bilirubin (0.2-1.3) mg/dL AST (14-36) U/L ALT (4-34) U/L Alkaline Phosphatase (38-126) U/L Free T4 >6.99 H (0.78-2.19) ng/dL 01/26/22 01/27/22 01/27/22 Range/Units 23:49 06:04 07:10 RBC 6.00 H (3.80-5.40) m/uL Hgb 17.0 H (11.4-16.0) gm/dL Hct 52.3 H (34.0-46.0) % APTT (22.0-30.0) sec Sodium (137-145) mmol/L BUN (7-17) mg/dL Glucose (74-99) mg/dL POC Glucose (mg/dL) 152 H 131 H (75-99) mg/dL Total Bilirubin (0.2-1.3) mg/dL AST (14-36) U/L ALT (4-34) U/L Alkaline Phosphatase (38-126) U/L Free T4 (0.78-2.19) ng/dL 01/27/22 Range/Units 07:33 RBC (3.80-5.40) m/uL Hgb (11.4-16.0) gm/dL Hct (34.0-46.0) % APTT 47.1 H (22.0-30.0) sec Sodium (137-145) mmol/L BUN (7-17) mg/dL Glucose (74-99) mg/dL POC Glucose (mg/dL) (75-99) mg/dL Total Bilirubin (0.2-1.3) mg/dL AST (14-36) U/L ALT (4-34) U/L Alkaline Phosphatase (38-126) U/L Free T4 (0.78-2.19) ng/dL
[2022-01-27 08:29] LABS: Potassium 3.2 mmol/L (3.5-5.1)
[2022-01-27 08:30] LABS: African American GFR (CKD) >90 (>60 ml/min/1.73 sqM); Anion Gap 8 mmol/L; Blood Urea Nitrogen 24 mg/dL (7-17); Calcium 9.3 mg/dL (8.4-10.2); Carbon Dioxide 27 mmol/L (22-30); Chloride 101 mmol/L (98-107); Glucose 127 mg/dL (74-99); Non-African American GFR(CKD) >90 (>60 ml/min/1.73 sqM); Sodium 136 mmol/L (137-145)
[2022-01-27 08:37] LABS: T4, Free (Free Thyroxine) 6.43 ng/dL (0.78-2.19)
[2022-01-27] MEDS: DOCUSATE 100 MG CAP PO SCH ×2 (09:35→21:45)
[2022-01-27] MEDS: SPIRONOLACTONE 25 MG TAB PO SCH (09:36)
[2022-01-27] MEDS: hydroCHLOROthiazide 25 MG TAB PO SCH (09:36)
[2022-01-27] MEDS: METOPROLOL TARTRATE 50 MG TAB PO SCH ×2 (09:36→20:30)
[2022-01-27] MEDS: HYDROCORTISONE SUCCINATE 100 MG/2 ML VIAL IV SCH ×3 (09:36→23:57)
[2022-01-27] MEDS: ASPIRIN 81 MG PO SCH (09:36)
[2022-01-27] MEDS: methIMAzole 5 MG TAB PO SCH ×4 (09:36→23:57)
--- NOTE | 2022-01-27 10:25 | P.PN ---
Subjective Progress Note Date: 01/27/22 This is a 52-year-old female, no previous medical history . Patient was brought into the ER yesterday morning around 10:16 AM with relatively acute onset of altered mental status and speech difficulty. The patient herself is a very poor historian however her volunteered most of the information. Apparently she was in her normal state until and he was out of town, patient suddenly stopped next thing him, and he was in a trip to [place]. Last text from the to the was around 11:44 AM on . Patient came back home on Thursday at 5 PM, and he clearly noticed right away that his was disoriented, confused, otherwise she was physically fine. Patient was complaini ng at the time of mild headache. The did not think much of it until the following day noticed that the patient remained about the same and she was brought into the ER. Patient was brought in around and a.m. on Thursday, and she was noted to have elevated blood pressure of 181/144. She was also noted to have elevated T4 and low TSH. And she was in atrial fibrillation with RVR. CT of the head showed subacute CVA of the left frontal parietal region extending into the left temporal lobe. Patient was admitted, she was seen by urology on consultation, and CT angiogram of the head and neck showed abrupt cutoff of the left M2 segment of the middle cerebral artery consistent with occlusion. Echocardiogram showed left ventricular thrombus patient was admitted, started on heparin, and this consult was initiated. Last night I was made aware of this patient, and I'll arrange for the patient to be admitted to the ICU for close monitoring. In the meantime I believe the patient is in the process of being transferred to [facility]. For her hyperthyroidism, patient was started on Tapazole. During my evaluation, the patient was clearly confused, she had no idea where she was, she had some difficulty with the speech, and she clearly has impaired and judgment. He knew however the name of her she did not know the name of the present or the city she lives in. Echocardiogram also showed impaired systolic function with ejection fraction of 25-30%. Patient is now on low intensity heparin. And she is also on aspirin. Being followed closely by neurology and by cardiology on the case. MRI of the brain is scheduled. The patient is seen today 01/27/2022 in follow-up in the intensive care unit. She is currently awake and alert. She is still somewhat restless and moving about in bed. Moving all fours. Speech is somewhat garbled. Follow-up computed tomography scan of the brain last evening revealed left temporal lobe infarct without change. Arachnoid cyst or encephalomalacia at the base of the right temporal lobe without change. No hemorrhage. White count 6.7. Hemoglobin 17.0. Sodium 136. Potassium 3.2. BUN 24. Creatinine 0.65. Free T4 6 0.43. ProBNP 950. Blood glucose 127. She remains afebrile. Maintaining O2 saturations in the 90s on room air. Hemodynamically stable. Heart rate in the 70s. Remains in atrial fibrillation. Echocardiogram revealed severely impaired left ventricular systolic function with ejection fraction 25-30%. Severe global hypokinesia. Possible thrombus in the LV apex. She remains on a heparin drip. 0.9 normal saline at KVO. She is continued on Tapazole and Solu- Cortef. Objective - Vital Signs Vital signs: Vital Signs Temp 98.9 F 01/27/22 04:00 Pulse 75 01/27/22 07:00 Resp 14 01/27/22 07:00 BP 113/81 01/27/22 07:00 Pulse Ox 93 L 01/27/22 07:00 Intake & Output 01/26/22 01/27/22 01/27/22 18:59 06:59 18:59 Intake Total 922.915 110 10 Output Total 1925 615 50 Balance -1002.085 -505 -40 Weight 81.8 kg Intake: IV 300 110 10 Sodium Chloride 0.9% 1, 300 110 10 000 ml @ 25 mls/hr IV . Q24H KAMILAH Rx#:[id number] Intake, IV Titration 262.915 Amount Diltiazem 125 mg In 112.167 Sodium Chloride 0.9% 100 ml @ 10 MG/HR 10 mls/hr IV .[id number] KAMILAH Rx#: [id number] Heparin Sod,Pork in 0.45% 150.748 NaCl 25,000 unit In 0.45 % NaCl 1 250ml.bag @ 11. 78 UNITS/KG/HR 10.003 mls /hr IV .Q24H KAMILAH Rx#: [id number] Oral 360 Output: Urine 1925 615 50 Other: Voiding Method Bedpan Indwelling Catheter - Exam GENERAL EXAM: Alert, 57-year-old female patient, on room air, garbled speech, moving all fours, comfortable in no apparent distress. HEAD: Normocephalic. EYES: Normal reaction of pupils, equal size. NOSE: Clear with pink turbinates. THROAT: No erythema or exudates. NECK: No masses, no JVD. CHEST: No chest wall deformity. LUNGS: Equal air entry with no crackles, wheeze, rhonchi or dullness. CVS: S1 and S2 normal with an audible murmur, irregular rhythm. ABDOMEN: No hepatosplenomegaly, normal bowel sounds, no guarding or rigidity. SPINE: No scoliosis or deformity SKIN: No rashes CENTRAL NERVOUS SYSTEM: Still with some garbled speech, tone is normal in all 4 extremities. EXTREMITIES: There is no peripheral edema. No clubbing, no cyanosis. Peripheral pulses are intact. - Labs CBC & Chem 7: 01/27/22 07:10 01/27/22 07:10 Labs: Abnormal Lab Results - Last 24 Hours (Table) 01/26/22 01/26/22 01/26/22 Range/Units 10:52 11:51 13:56 RBC (3.80-5.40) m/uL Hgb (11.4-16.0) gm/dL Hct (34.0-46.0) % APTT 44.2 H (22.0-30.0) sec Sodium 134 L (137-145) mmol/L Potassium (3.5-5.1) mmol/L BUN 21 H (7-17) mg/dL Glucose 186 H (74-99) mg/dL POC Glucose (mg/dL) 135 H (75-99) mg/dL Total Bilirubin 1.7 H (0.2-1.3) mg/dL AST 42 H (14-36) U/L ALT 37 H (4-34) U/L Alkaline Phosphatase 175 H (38-126) U/L Free T4 (0.78-2.19) ng/dL 01/26/22 01/26/22 01/26/22 Range/Units 13:56 18:11 23:45 RBC (3.80-5.40) m/uL Hgb (11.4-16.0) gm/dL Hct (34.0-46.0) % APTT (22.0-30.0) sec Sodium (137-145) mmol/L Potassium (3.5-5.1) mmol/L BUN (7-17) mg/dL Glucose (74-99) mg/dL POC Glucose (mg/dL) 139 H 165 H (75-99) mg/dL Total Bilirubin (0.2-1.3) mg/dL AST (14-36) U/L ALT (4-34) U/L Alkaline Phosphatase (38-126) U/L Free T4 >6.99 H (0.78-2.19) ng/dL 01/26/22 01/27/22 01/27/22 Range/Units 23:49 06:04 07:10 RBC (3.80-5.40) m/uL Hgb (11.4-16.0) gm/dL Hct (34.0-46.0) % APTT (22.0-30.0) sec Sodium 136 L (137-145) mmol/L Potassium 3.2 L (3.5-5.1) mmol/L BUN 24 H (7-17) mg/dL Glucose 127 H (74-99) mg/dL POC Glucose (mg/dL) 152 H 131 H (75-99) mg/dL Total Bilirubin (0.2-1.3) mg/dL AST (14-36) U/L ALT (4-34) U/L Alkaline Phosphatase (38-126) U/L Free T4 6.43 H (0.78-2.19) ng/dL 01/27/22 01/27/22 Range/Units 07:10 07:33 RBC 6.00 H (3.80-5.40) m/uL Hgb 17.0 H (11.4-16.0) gm/dL Hct 52.3 H (34.0-46.0) % APTT 47.1 H (22.0-30.0) sec Sodium (137-145) mmol/L Potassium (3.5-5.1) mmol/L BUN (7-17) mg/dL Glucose (74-99) mg/dL POC Glucose (mg/dL) (75-99) mg/dL Total Bilirubin (0.2-1.3) mg/dL AST (14-36) U/L ALT (4-34) U/L Alkaline Phosphatase (38-126) U/L Free T4 (0.78-2.19) ng/dL Assessment and Plan Assessment: 1 Acute ischemic stroke, possibly related to cardiac embolism or could be related to thromboembolic disease involving the MCA. Follow-up computed tomography scan of the brain revealed a left temporal lobe infarct without change. Arachnoid cyst or encephalomalacia at the base of the right temporal lo be without change. No hemorrhage. 2 New onset atrial fibrillation with RVR 3 Mild systolic congestive heart failure, the patient found to have severe left ventricular systolic dysfunction with global hypokinesia ejection fraction 25- 30% 4 Possible left ventricular apical thrombus 5 New onset hyperthyroidism 6 Benign essential hypertension 7 Elevated liver enzymes could be related to her congestive heart failure/congestive hepatopathy Plan: The patient was seen and evaluated Echocardiogram, computed tomography scan of the brain and labs reviewed Initial plan was for transfer to a tertiary center for inpatient endocrinology Remains on Tapazole and Solu-Cortef The patient has stabilized and will be transferred out of the ICU Continue heparin drip for now Cardiology and neurology are on the case We will continue to follow I have personally seen and examined the patient, performed the documentation and the assessment and plan as written. Number of minutes spent on the visit: 10.
--- NOTE | 2022-01-27 10:27 | P.PN ---
Subjective Progress Note Date: 01/27/22 No new complaints today. No new focal deficits. Expressive aphasia improving. FT4 today shows improvement on tapazole and hydrocortisone. HRs better controlled on oral metoprolol. BNP and volume overload status improved with HCTZ, and aldactone. Gen: awake, alert HEENT: normocephalic, atraumatic, good hearing acuity, moist mucous membranes Resp: good air exchange, breathing comfortably with no accessory muscle use CVS: good distal perfusion x 4, GI: soft, NTTP, ND : no SPT, no CVAT, hernandez catheter not present MSK: no pitting edema, no clubbing Neuro: non-focal, moving all extremities with 5 out of 5 motor strength, no reported loss of sensation to light touch, expressive aphasia, mild right-sided chela-neglect Psych: cooperative, euthymic mood Assessment: Acute embolic stroke Hypertensive urgency Thyrotoxicosis Acute Systolic Heart Failure, EF 25-30% LV Thrombus Congestive Hepatopathy Paroxysmal atrial fibrillation with rapid ventricular response Plan: -Admit to inpatient, telemetry -Cardiology consult -Neurology consult -Aspirin 325 once, followed by aspirin 81 mg daily -started heparin gtt given thrombus, can transition to eliquis once MRI completed -Continue statin -PT/OT, pending -Speech therapy, pending -Started hydrochlorothiazide -Lipid panel = TC/HDL/LDL - 166/48/106 - A1c = 6.0 -TSH with reflex to free T4 daily - 01/27 - TSH/FT4 = ?/6.43 -Echocardiogram with global EF reduction and hypokinesis to 25-30%, LV thrombus, RVE -MRI of the brain, pending -methimazole, metoprolol, hydrocortisone -lisinopril, aldactone -will touch base with endocrinology today Patient is a full code DVT prophylaxis is on hold given size of the stroke and risk of hemorrhagic conversion Objective - Vital Signs Vital signs: Vital Signs Temp 98.9 F 01/27/22 04:00 Pulse 75 01/27/22 07:00 Resp 14 01/27/22 07:00 BP 113/81 01/27/22 07:00 Pulse Ox 93 L 01/27/22 07:00 Intake & Output 01/26/22 01/27/22 01/27/22 18:59 06:59 18:59 Intake Total 922.915 110 10 Output Total 1925 615 50 Balance -1002.085 -505 -40 Weight 81.8 kg Intake: IV 300 110 10 Sodium Chloride 0.9% 1, 300 110 10 000 ml @ 25 mls/hr IV . Q24H KAMILAH Rx#:[id number] Intake, IV Titration 262.915 Amount Diltiazem 125 mg In 112.167 Sodium Chloride 0.9% 100 ml @ 10 MG/HR 10 mls/hr IV .[id number] KAMILAH Rx#: [id number] Heparin Sod,Pork in 0.45% 150.748 NaCl 25,000 unit In 0.45 % NaCl 1 250ml.bag @ 11. 78 UNITS/KG/HR 10.003 mls /hr IV .Q24H KAMILAH Rx#: [id number] Oral 360 Output: Urine 1924 615 50 Other: Voiding Method Bedpan Indwelling Catheter - Labs CBC & Chem 7: 01/27/22 07:10 01/27/22 07:10 Labs: Abnormal Lab Results - Last 24 Hours (Table) 01/26/22 01/26/22 01/26/22 Range/Units 10:52 11:51 13:56 RBC (3.80-5.40) m/uL Hgb (11.4-16.0) gm/dL Hct (34.0-46.0) % APTT 44.2 H (22.0-30.0) sec Sodium 134 L (137-145) mmol/L Potassium (3.5-5.1) mmol/L BUN 21 H (7-17) mg/dL Glucose 186 H (74-99) mg/dL POC Glucose (mg/dL) 135 H (75-99) mg/dL Total Bilirubin 1.7 H (0.2-1.3) mg/dL AST 42 H (14-36) U/L ALT 37 H (4-34) U/L Alkaline Phosphatase 175 H (38-126) U/L Free T4 (0.78-2.19) ng/dL 01/26/22 01/26/22 01/26/22 Range/Units 13:56 18:11 23:45 RBC (3.80-5.40) m/uL Hgb (11.4-16.0) gm/dL Hct (34.0-46.0) % APTT (22.0-30.0) sec Sodium (137-145) mmol/L Potassium (3.5-5.1) mmol/L BUN (7-17) mg/dL Glucose (74-99) mg/dL POC Glucose (mg/dL) 139 H 165 H (75-99) mg/dL Total Bilirubin (0.2-1.3) mg/dL AST (14-36) U/L ALT (4-34) U/L Alkaline Phosphatase (38-126) U/L Free T4 >6.99 H (0.78-2.19) ng/dL 01/26/22 01/27/22 01/27/22 Range/Units 23:49 06:04 07:10 RBC (3.80-5.40) m/uL Hgb (11.4-16.0) gm/dL Hct (34.0-46.0) % APTT (22.0-30.0) sec Sodium 136 L (137-145) mmol/L Potassium 3.2 L (3.5-5.1) mmol/L BUN 24 H (7-17) mg/dL Glucose 127 H (74-99) mg/dL POC Glucose (mg/dL) 152 H 131 H (75-99) mg/dL Total Bilirubin (0.2-1.3) mg/dL AST (14-36) U/L ALT (4-34) U/L Alkaline Phosphatase (38-126) U/L Free T4 6.43 H (0.78-2.19) ng/dL 01/27/22 01/27/22 Range/Units 07:10 07:33 RBC 6.00 H (3.80-5.40) m/uL Hgb 17.0 H (11.4-16.0) gm/dL Hct 52.3 H (34.0-46.0) % APTT 47.1 H (22.0-30.0) sec Sodium (137-145) mmol/L Potassium (3.5-5.1) mmol/L BUN (7-17) mg/dL Glucose (74-99) mg/dL POC Glucose (mg/dL) (75-99) mg/dL Total Bilirubin (0.2-1.3) mg/dL AST (14-36) U/L ALT (4-34) U/L Alkaline Phosphatase (38-126) U/L Free T4 (0.78-2.19) ng/dL
[2022-01-27 11:47] LABS: Glucose,Whole Blood 154 mg/dL (75-99)
[2022-01-27] MEDS ORDERED: IODINE/POTASS IOD (LUGOLS) BOTTLE PO ONE (16:00)
[2022-01-27 16:41] LABS: Glucose,Whole Blood 138 mg/dL (75-99)
[2022-01-27] MEDS: HEPARIN SOD,PORK IN 0.45% NACL 25,000 UNIT in 0.45% NACL 1 250ML.BAG IV SCH (17:27)
[2022-01-27] MEDS ORDERED: methIMAzole 5 MG TAB PO SCH (18:00)
--- NOTE | 2022-01-27 21:01 | MR ---
EXAMINATION TYPE: MR brain wo con DATE OF EXAM: 01/27/2022 COMPARISON: None HISTORY: Neuro deficit, acute, stroke suspected, neuro changes Multiplanar multiecho imaging of the brain without contrast. There is 8.5 x 4.5 cm area of increased signal on the diffusion images involving the left temporal lo be and extending into the left occipital lobe related to large infarct. There is no mass effect nor m idline shift. There is no evidence of intracranial hemorrhage. Ventricles have normal size. There is 2.5 cm irregular area of increased signal on the T2 and FLAIR images in the deep right tempo ral lobe consistent with infarct. This appears old. Corpus callosum is intact. Brainstem shows some mild diffuse increased signal in the albertina in the midl ine on the FLAIR images. This measures 2 x 1.5 cm. IMPRESSION: Large subacute infarct left temporal lobe. Old infarct at the inferior surface of the medial right te mporal lobe. Increased signal in the brainstem suggestive of microvascular ischemia or demyelinating disease at th e albertina level. Brain not changed compared to CT scan yesterday.
[2022-01-27] MEDS: ATORVASTATIN 80 MG TAB PO SCH (21:45)
[2022-01-27 21:51] LABS: Glucose,Whole Blood 179 mg/dL (75-99)
[2022-01-28 04:38] LABS: Basophils % (A) 0 %; Eosinophils % (A) 0 %; HCT 54.7 % (34.0-46.0); HGB 17.5 gm/dL (11.4-16.0); Hypochromasia Slight; Lymphocytes # (A) 0.7 k/uL (1.0-4.8); Lymphocytes % (A) 12 %; MCH 27.6 pg (25.0-35.0); MCHC 31.9 g/dL (31.0-37.0); MCV 86.5 fL (80.0-100.0); Mean Platelet Volume 9.8; Monocytes # (A) 0.2 k/uL (0-1.0); Monocytes % (A) 4 %; Neutrophils # (A) 5.1 k/uL (1.3-7.7); Neutrophils % (A) 84 %; Platelet Count 181 k/uL (150-450); RBC 6.33 m/uL (3.80-5.40); RDW 15.4 % (11.5-15.5); WBC 6.1 k/uL (3.8-10.6)
[2022-01-28 05:08] LABS: Glucose,Whole Blood 134 mg/dL (75-99)
--- NOTE | 2022-01-28 05:13 | CT ---
EXAMINATION TYPE: CT brain wo con DATE OF EXAM: 01/28/2022 COMPARISON: 01/25/2022 HISTORY: AMS post previous stroke. CT DLP: 1110.4 mGycm Automated exposure control for dose reduction was used. Images of the brain obtained without contrast. There is a large 8 x 4 cm area of hypodensity in the left posterior temporal lobe extending into the left parietal lobe consistent with infarct. No mass effect. Ventricles of normal size. There is some hypodensity at the posterior inferior aspect right temporal lobe in the middle cranial fossa consiste nt with old infarct or arachnoid cyst. The calvarium is intact. Skull base is intact. IMPRESSION: Left temporal lobe infarct without change compared to yesterday. Old right inferior posterior tempora l lobe small infarct or arachnoid cyst without change. No evidence of a new abnormality compared to y esterday.
--- NOTE | 2022-01-28 05:37 | P.CONS ---
History of Present Illness - Chief Complaint Date disturbance, right hemiparesthesias - History of Present Illness I had the opportunity to see patient for inpatient rehab consultation with regard to gait disturbance. Patient admitted to Dr. Denise the January 25 with mental status and speech changes. Seen by cardiology for atrial fibrillation with RVR. Seen by neurology, his son for the mental status change. Seen by Dr. Coronel for ICU and CHF management. Laboratories head CT demonstrates left frontal temporal infarct and right encephalomalacia. Angiogram CT demonstrates of the head left frontal infarct and right encephalomalacia and neck negative. Abdominal ultrasound demonstrates gallbladder polyps. Chest x-ray of mild CHF. A follow-up CT demonstrates left temporal infarct and right temporal arachnoid cyst with encephalomalacia. PT and OT prescribed. Speech therapy since swallow and plan a regular diet and thin liquid. Previous functional history as elicited from patient: States she is 37 but an x- ray 57-year-old right-handed white female who is lives and 2 floor home with and 2 adult children. Patient is a homemaker and works full-time. Patient describes independent with cooking, laundry, driving, standing shower and gait without device. PCP Denisse Vázquze". Denies tobacco or alcohol. Review of Systems Review of systems: ENT: Denies sneezes or discharge. Eyes: Denies discharge or photophobia. Cardiac: Denies chest pain or palpitation. Pulmonary: Denies cough or shortness of breath. Breast: Denies discharge or lumps. Gastrointestinal: Denies nausea, emesis, constipation, diarrhea. Genitourinary: Denies discharge or frequency. Musculoskeletal: Denies muscle or bone aches. Neurologic: Some cognitive changes as well as right-sided weakness. Patient is unaware. Endocrine: Denies shakes or sweats. Oncology: Denies cancers. Dermatologic: Denies rash, itching, pruritus. ALLERGY/immunology: Denies sneezes, rashes. Past Medical History Past Medical History: No Reported History History of Any Multi-Drug Resistant Organisms: None Reported Past Surgical History: No Surgical Hx Reported Past Psychological History: No Psychological Hx Reported Smoking Status: Never smoker Past Alcohol Use History: Occasional Past Drug Use History: None Reported Medications and Allergies Home Medications Medication Instructions Recorded Confirmed Type No Known Home Medications 01/25/22 01/25/22 History Allergies Allergy/AdvReac Type Severity Reaction Status Date / Time No Known Allergies Allergy Verified 01/25/22 11:42 Physical Exam Vitals: Vital Signs Temp Pulse Pulse Resp BP Pulse Ox 01/28/22 05:00 98 18 157/99 94 L 01/28/22 04:30 110 H 22 167/101 96 01/28/22 04:00 98.5 F 71 18 123/71 94 L 01/28/22 03:30 77 15 102/65 92 L 01/28/22 03:00 95 20 128/76 01/28/22 02:30 106 H 15 119/86 94 L 01/28/22 02:00 103 H 19 126/87 92 L 01/28/22 01:30 105 H 18 141/97 90 L 01/28/22 01:00 86 16 140/79 89 L 01/28/22 00:30 92 17 134/77 95 01/28/22 00:00 98.3 F 93 20 120/82 94 L 01/27/22 23:30 88 20 120/87 95 01/27/22 23:00 80 16 124/106 96 01/27/22 22:30 85 17 145/80 94 L 01/27/22 22:00 87 14 128/95 92 L 01/27/22 21:30 94 22 106/66 91 L 01/27/22 21:00 90 16 135/94 94 L 01/27/22 20:30 97 23 135/94 95 01/27/22 20:00 98.9 F 98 92 19 140/113 94 L 01/27/22 18:30 109 H 124/69 95 01/27/22 18:00 113 H 79/67 96 01/27/22 17:30 65 94/80 95 01/27/22 17:00 101 H 112/98 95 01/27/22 16:30 105 H 98/88 89 L 01/27/22 16:00 98 117/87 94 L 01/27/22 15:30 96 99/40 94 L 01/27/22 15:00 99 117/87 95 01/27/22 14:30 106 H 17 106/83 94 L 01/27/22 14:00 130 H 106/83 97 01/27/22 13:30 20 97/62 81 L 01/27/22 13:00 16 109/70 88 L 01/27/22 12:30 94 28 H 100/83 92 L 01/27/22 12:00 90 17 96/80 90 L 01/27/22 11:30 89 23 126/114 94 L 01/27/22 11:00 85 12 135/124 95 01/27/22 10:30 80 16 118/99 94 L 01/27/22 10:00 17 121/91 94 L 01/27/22 09:30 90 11 L 100/73 94 L 01/27/22 09:00 103 H 14 142/77 94 L 01/27/22 08:30 110 H 18 123/95 89 L 01/27/22 08:00 98.2 F 106 H 20 122/78 94 L 01/27/22 07:30 85 15 125/79 91 L 01/27/22 07:00 75 14 113/81 93 L 01/27/22 06:30 79 15 103/69 91 L 01/27/22 06:00 72 17 101/70 93 L Intake and Output 01/27/22 01/27/22 01/28/22 14:59 22:59 06:59 Intake Total 570 310 70 Output Total 285 0 375 Balance 285 310 -305 Intake: IV 80 70 70 Sodium Chloride 0.9% 1, 80 70 70 000 ml @ 25 mls/hr IV . Q24H KAMILAH Rx#:[id number] Intake, IV Titration 250 Amount Heparin Sod,Pork in 0.45% 250 NaCl 25,000 unit In 0.45 % NaCl 1 250ml.bag @ 11. 78 UNITS/KG/HR 10.003 mls /hr IV .Q24H KAMILAH Rx#: [id number] Oral 240 240 Output: Urine 285 0 375 Other: Voiding Method Indwelling Catheter Indwelling Catheter # Voids 0 0 Skin: Good color, texture, turgor. General: Medium build and comfortable appearance. Head: Normocephalic, atraumatic. Eyes: Symmetric. Pupils equal round. Ears: Symmetric. Hearing within normal limits. Mouth: Clear. Neck: Supple. Carotid without bruit. Cardiac: Regular rate and rhythm. Lungs: Clear anteriorly and posteriorly. Abdomen: Soft active nontender. Extremities: Normal tone. Neurological: Mental status: Alert, cooperative, pleasant. Some paraphasic and biographical information errors. Cranial nerves: Symmetric facial tone and trapezius. Motor: Normal strength and isolation all 4 limbs. Mild weakness and apraxia right hand. Sensation: Intact throughout. DTRs: Symmetric and equal throughout. Mobility: Bed mobility with minimal assist. Results CBC & Chem 7: 01/28/22 04:03 01/27/22 07:10 Labs: Abnormal Lab Results - Last 24 Hours (Table) 01/27/22 01/27/22 01/27/22 Range/Units 06:04 07:10 07:10 RBC 6.00 H (3.80-5.40) m/uL Hgb 17.0 H (11.4-16.0) gm/dL Hct 52.3 H (34.0-46.0) % Lymphocytes # (1.0-4.8) k/uL APTT (22.0-30.0) sec Sodium 136 L (137-145) mmol/L Potassium 3.2 L (3.5-5.1) mmol/L BUN 24 H (7-17) mg/dL Glucose 127 H (74-99) mg/dL POC Glucose (mg/dL) 131 H (75-99) mg/dL Free T4 6.43 H (0.78-2.19) ng/dL 01/27/22 01/27/22 01/27/22 Range/Units 07:33 11:45 16:40 RBC (3.80-5.40) m/uL Hgb (11.4-16.0) gm/dL Hct (34.0-46.0) % Lymphocytes # (1.0-4.8) k/uL APTT 47.1 H (22.0-30.0) sec Sodium (137-145) mmol/L Potassium (3.5-5.1) mmol/L BUN (7-17) mg/dL Glucose (74-99) mg/dL POC Glucose (mg/dL) 154 H 138 H (75-99) mg/dL Free T4 (0.78-2.19) ng/dL 01/27/22 01/28/22 01/28/22 Range/Units 21:49 04:03 04:03 RBC 6.33 H (3.80-5.40) m/uL Hgb 17.5 H (11.4-16.0) gm/dL Hct 54.7 H (34.0-46.0) % Lymphocytes # 0.7 L (1.0-4.8) k/uL APTT 48.6 H (22.0-30.0) sec Sodium (137-145) mmol/L Potassium (3.5-5.1) mmol/L BUN (7-17) mg/dL Glucose (74-99) mg/dL POC Glucose (mg/dL) 179 H (75-99) mg/dL Free T4 (0.78-2.19) ng/dL 01/28/22 Range/Units 05:06 RBC (3.80-5.40) m/uL Hgb (11.4-16.0) gm/dL Hct (34.0-46.0) % Lymphocytes # (1.0-4.8) k/uL APTT (22.0-30.0) sec Sodium (137-145) mmol/L Potassium (3.5-5.1) mmol/L BUN (7-17) mg/dL Glucose (74-99) mg/dL POC Glucose (mg/dL) 134 H (75-99) mg/dL Free T4 (0.78-2.19) ng/dL Assessment and Plan (1) CVA (cerebral vascular accident) Current Visit: Yes Status: Acute Code(s): I63.9 - CEREBRAL INFARCTION, UNSPECIFIED SNOMED Code(s): 116090063 (2) New onset a-fib Current Visit: Yes Status: Acute Code(s): I48.91 - UNSPECIFIED ATRIAL FIBRILLATION SNOMED Code(s): 13161129 Plan: Comments and plan: Patient appears to have suffered stroke with resultant aphasia and right hemiparesthesias. At this time I discussed anticipated need of inpatient rehab with patient and she seems agreeable. Appears her multiple supports at home as well. We'll of course require PT and OT notes and in follow-up on the above as appropriate.
[2022-01-28 06:05] LABS: Calcium 9.5 mg/dL (8.4-10.2); Magnesium 2.1 mg/dL (1.6-2.3); Potassium 3.2 mmol/L (3.5-5.1)
[2022-01-28] MEDS ORDERED: Potassium Replacement Protocol 1 EACH MISC MISCELLANE PRN (06:10)
[2022-01-28] MEDS: POTASSIUM BICARBONATE/CIT AC 20 MEQ TABLET.EFF NG-TUBE SCH ×2 (06:15→10:07)
[2022-01-28 06:20] LABS: T4, Free (Free Thyroxine) 5.89 ng/dL (0.78-2.19)
--- NOTE | 2022-01-28 07:59 | XR ---
EXAMINATION TYPE: XR chest 1V portable DATE OF EXAM: 01/28/2022 COMPARISON: 01/25/2022 INDICATION: Low O2 TECHNIQUE: Single frontal view of the chest is obtained. FINDINGS: The heart size is enlarged. The pulmonary vasculature is normal. No suspicious focal consolidation is evident. IMPRESSION: 1. Cardiomegaly.
--- NOTE | 2022-01-28 08:38 | P.PN ---
Subjective History of Present Illness: The patient is a 56-year-old female who has not seen a physician in over 30 years who is brought into the emergency room with confusion. The history is obtained from her . Apparently he was out of town on business last week and when he called her and the texted her on she did not answer. He returned to town on Thursday and she was somewhat confused and that persisted today. She is moving, he did not notice a slurred speech but she appears to be unable to answer questions. She came into the emergency room and was noted to be in atrial fibrillation of unknown duration. She recalls that she went out for dinner on Thursday and she did not like the food but she cannot remember what happened on or yesterday. She denies any palpitations, chest discomfort or dyspnea. She has no prior history of PND, orthopnea or peripheral edema. She is usually active physically, walks the dog without symptoms. She has no history of documented diabetes, hypertension or hyperlipidemia but as noted she has not seen a physician in a long time. She takes no medication at home. She drinks caffeine occasionally and alcohol on a social basis. January 26: The patient has been transferred to the ICU. She remains awake but confused. In atrial fibrillation with controlled ventricular response. Her echocardiogram yesterday showed severe cardiomyopathy with possible apical thrombus. She had moderate mitral and tricuspid regurgitation. She continues to be on IV Cardizem and was started on IV heparin yesterday. There is evidence of severe hyperthyroidism that could be the cause of her atrial fibrillation. 01/27 Patient seen and examined. Patient did have a further episode of confusion how ever this morning feeling somewhat better and believes aphasia somewhat improving. Heart rates have been better controlled mainly 90s to 110s still in A. fib. She denies any chest pain or pressure, no shortness breath. Patient has been started on methimazole as well as site Cortef for hyperthyroidism. 01/28 Patient seen and examined. Patient somewhat anxious and still remains somewhat confused stating she ate dinner today however answering some questions appropriately. Denies any chest pain or pressure. No shortness breath. Heart rates have been in the 90s to 110s. T4 noted to be mildly improved. Urine output has been marginal. Patient eating approximate 75% of her meal. Physical Examination: Vitals reviewed Head: Normocephalic. Eyes: Sclerae nonicteric. Neck: Good carotid upstroke, no bruit, no jugular venous distention. Lungs: Clear to auscultation. Heart: Irregular rate and rhythm, S1-S2, no S3, no rub. Holosystolic murmur at the base. Abdomen: Soft nontender, positive bowel sounds no organomegaly. Extremities: No edema, intact distal pulses. Impression: 1. CVA with abnormal CT angiogram 2. Atrial fibrillation of unknown duration with mild RVR exacerbated by h yperthyroid state 3. Cardiomyopathy, severe of unknown duration or etiology with possible apical thrombus. Likely tachycardia induced 4. Hyperthyroidism 5. Confusion related to the stroke Plan: Patient still with persistent mild tachycardia. We will change from metoprolol to propranolol for better control of her hyperthyroid state as well. Optimize heart failure regimen as able however blood pressures somewhat borderline. Continue to monitor neurologic status and hopefully improvements once thyroid levels normalize. Objective - Vital Signs Vital signs: Vital Signs Temp 98.5 F 01/28/22 04:00 Pulse 84 01/28/22 07:30 Resp 15 01/28/22 07:30 BP 118/103 01/28/22 07:30 Pulse Ox 93 L 01/28/22 07:30 Intake & Output 01/27/22 01/28/22 01/28/22 18:59 06:59 18:59 Intake Total 850 110 10 Output Total 285 475 Balance 565 -365 10 Weight 82.5 kg Intake: IV 120 110 10 Sodium Chloride 0.9% 1, 120 110 10 000 ml @ 25 mls/hr IV . Q24H KAMILAH Rx#:[id number] Intake, IV Titration 250 Amount Heparin Sod,Pork in 0.45% 250 NaCl 25,000 unit In 0.45 % NaCl 1 250ml.bag @ 11. 78 UNITS/KG/HR 10.003 mls /hr IV .Q24H KAMILAH Rx#: [id number] Oral 480 Output: Urine 285 475 Other: Voiding Method Indwelling Catheter # Voids 1 0 - Labs CBC & Chem 7: 01/28/22 04:03 01/28/22 04:03 Labs: Abnormal Lab Results - Last 24 Hours (Table) 01/27/22 01/27/22 01/27/22 Range/Units 07:10 11:45 16:40 RBC (3.80-5.40) m/uL Hgb (11.4-16.0) gm/dL Hct (34.0-46.0) % Lymphocytes # (1.0-4.8) k/uL APTT (22.0-30.0) sec Sodium 136 L (137-145) mmol/L Potassium (3.5-5.1) mmol/L BUN 24 H (7-17) mg/dL Glucose 127 H (74-99) mg/dL POC Glucose (mg/dL) 154 H 138 H (75-99) mg/dL Free T4 6.43 H (0.78-2.19) ng/dL 01/27/22 01/28/22 01/28/22 Range/Units 21:49 04:03 04:03 RBC 6.33 H (3.80-5.40) m/uL Hgb 17.5 H (11.4-16.0) gm/dL Hct 54.7 H (34.0-46.0) % Lymphocytes # 0.7 L (1.0-4.8) k/uL APTT (22.0-30.0) sec Sodium (137-145) mmol/L Potassium 3.2 L (3.5-5.1) mmol/L BUN 38 H (7-17) mg/dL Glucose 146 H (74-99) mg/dL POC Glucose (mg/dL) 179 H (75-99) mg/dL Free T4 5.89 H (0.78-2.19) ng/dL 01/28/22 01/28/22 Range/Units 04:03 05:06 RBC (3.80-5.40) m/uL Hgb (11.4-16.0) gm/dL Hct (34.0-46.0) % Lymphocytes # (1.0-4.8) k/uL APTT 48.6 H (22.0-30.0) sec Sodium (137-145) mmol/L Potassium (3.5-5.1) mmol/L BUN (7-17) mg/dL Glucose (74-99) mg/dL POC Glucose (mg/dL) 134 H (75-99) mg/dL Free T4 (0.78-2.19) ng/dL
[2022-01-28] MEDS ORDERED: FUROSEMIDE 10 MG/ML 4 ML VIAL IV SCH (09:00)
--- NOTE | 2022-01-28 09:03 | P.PN ---
Subjective Progress Note Date: 01/28/22 Had episodic confusion and RUE weakness yesterday. Had MRI and repeat stat CTH with no hemorrhagic conversion. MRI showed multiple strokes involving left temporal, right temporal and albertina. No new focal deficits. Expressive aphasia improving. FT4 today shows improvement on tapazole and hydrocortisone. HRs better controlled on oral metoprolol; cardiology switched to propanolol for thyroid coverage. BNP and volume overload status improved with HCTZ, and aldactone; she is now euvolemic, can dc HCTZ. Gen: awake, alert HEENT: normocephalic, atraumatic, good hearing acuity, moist mucous membranes Resp: good air exchange, breathing comfortably with no accessory muscle use CVS: good distal perfusion x 4, GI: soft, NTTP, ND : no SPT, no CVAT, hernandez catheter not present MSK: no pitting edema, no clubbing Neuro: non-focal, moving all extremities with 5 out of 5 motor strength, no reported loss of sensation to light touch, expressive aphasia, mild right-sided chela-neglect Psych: cooperative, euthymic mood Assessment: Acute embolic stroke Hypertensive urgency Thyrotoxicosis Acute Systolic Heart Failure, EF 25-30% LV Thrombus Congestive Hepatopathy Paroxysmal atrial fibrillation with rapid ventricular response Plan: -Admit to inpatient, telemetry -Cardiology consult -Neurology consult -Aspirin 325 once, followed by aspirin 81 mg daily; once on eliquis switch to plavix -started heparin gtt given thrombus, can transition to eliquis once on the floor -Continue statin -PT/OT, appreciate recs -Speech therapy, appreciate recs -Started hydrochlorothiazide -Lipid panel = TC/HDL/LDL - 166/48/106 - A1c = 6.0 -TSH with reflex to free T4 daily - 01/27 - TSH/FT4 = ?/6.43 -Echocardiogram with global EF reduction and hypokinesis to 25-30%, LV thrombus, RVE -MRI of the brain, right temporal stroke, left temporal stroke, albertina ischemia -methimazole, metoprolol vs propanolol per cardiology, hydrocortisone -s/p iodine drops -lisinopril, aldactone -remote endo consultation from 01/27: increase tapazole, iodine gtt sublingual, daily FT4; continue hydrocortisone until FT4 < 4 Patient is a full code DVT prophylaxis is on hold given size of the stroke and risk of hemorrhagic conversion Objective - Vital Signs Vital signs: Vital Signs Temp 98.5 F 01/28/22 04:00 Pulse 84 01/28/22 07:30 Resp 15 01/28/22 07:30 BP 118/103 01/28/22 07:30 Pulse Ox 93 L 01/28/22 07:30 Intake & Output 01/27/22 01/28/22 01/28/22 18:59 06:59 18:59 Intake Total 850 110 10 Output Total 285 475 Balance 565 -365 10 Weight 82.5 kg Intake: IV 120 110 10 Sodium Chloride 0.9% 1, 120 110 10 000 ml @ 25 mls/hr IV . Q24H KAMILAH Rx#:[id number] Intake, IV Titration 250 Amount Heparin Sod,Pork in 0.45% 250 NaCl 25,000 unit In 0.45 % NaCl 1 250ml.bag @ 11. 78 UNITS/KG/HR 10.003 mls /hr IV .Q24H KAMILAH Rx#: [id number] Oral 480 Output: Urine 285 475 Other: Voiding Method Indwelling Catheter # Voids 1 0 - Labs CBC & Chem 7: 01/28/22 04:03 01/28/22 04:03 Labs: Abnormal Lab Results - Last 24 Hours (Table) 01/27/22 01/27/22 01/27/22 Range/Units 11:45 16:40 21:49 RBC (3.80-5.40) m/uL Hgb (11.4-16.0) gm/dL Hct (34.0-46.0) % Lymphocytes # (1.0-4.8) k/uL APTT (22.0-30.0) sec Potassium (3.5-5.1) mmol/L BUN (7-17) mg/dL Glucose (74-99) mg/dL POC Glucose (mg/dL) 154 H 138 H 179 H (75-99) mg/dL Free T4 (0.78-2.19) ng/dL 01/28/22 01/28/22 01/28/22 Range/Units 04:03 04:03 04:03 RBC 6.33 H (3.80-5.40) m/uL Hgb 17.5 H (11.4-16.0) gm/dL Hct 54.7 H (34.0-46.0) % Lymphocytes # 0.7 L (1.0-4.8) k/uL APTT 48.6 H (22.0-30.0) sec Potassium 3.2 L (3.5-5.1) mmol/L BUN 38 H (7-17) mg/dL Glucose 146 H (74-99) mg/dL POC Glucose (mg/dL) (75-99) mg/dL Free T4 5.89 H (0.78-2.19) ng/dL 01/28/22 Range/Units 05:06 RBC (3.80-5.40) m/uL Hgb (11.4-16.0) gm/dL Hct (34.0-46.0) % Lymphocytes # (1.0-4.8) k/uL APTT (22.0-30.0) sec Potassium (3.5-5.1) mmol/L BUN (7-17) mg/dL Glucose (74-99) mg/dL POC Glucose (mg/dL) 134 H (75-99) mg/dL Free T4 (0.78-2.19) ng/dL
--- NOTE | 2022-01-28 09:54 | P.PN ---
Subjective Progress Note Date: 01/28/22 This is a 52-year-old female, no previous medical history . Patient was brought into the ER yesterday morning around 10:16 AM with relatively acute onset of altered mental status and speech difficulty. The patient herself is a very poor historian however her volunteered most of the information. Apparently she was in her normal state until and he was out of town, patient suddenly stopped next thing him, and he was in a trip to [place]. Last text from the to the was around 11:44 AM on . Patient came back home on Thursday at 5 PM, and he clearly noticed right away that his was disoriented, confused, otherwise she was physically fine. Patient was complaini ng at the time of mild headache. The did not think much of it until the following day noticed that the patient remained about the same and she was brought into the ER. Patient was brought in around and a.m. on Thursday, and she was noted to have elevated blood pressure of 181/144. She was also noted to have elevated T4 and low TSH. And she was in atrial fibrillation with RVR. CT of the head showed subacute CVA of the left frontal parietal region extending into the left temporal lobe. Patient was admitted, she was seen by urology on consultation, and CT angiogram of the head and neck showed abrupt cutoff of the left M2 segment of the middle cerebral artery consistent with occlusion. Echocardiogram showed left ventricular thrombus patient was admitted, started on heparin, and this consult was initiated. Last night I was made aware of this patient, and I'll arrange for the patient to be admitted to the ICU for close monitoring. In the meantime I believe the patient is in the process of being transferred to [facility]. For her hyperthyroidism, patient was started on Tapazole. During my evaluation, the patient was clearly confused, she had no idea where she was, she had some difficulty with the speech, and she clearly has impaired and judgment. He knew however the name of her she did not know the name of the present or the city she lives in. Echocardiogram also showed impaired systolic function with ejection fraction of 25-30%. Patient is now on low intensity heparin. And she is also on aspirin. Being followed closely by neurology and by cardiology on the case. MRI of the brain is scheduled. The patient is seen today 01/27/2022 in follow-up in the intensive care unit. She is currently awake and alert. She is still somewhat restless and moving about in bed. Moving all fours. Speech is somewhat garbled. Follow-up computed tomography scan of the brain last evening revealed left temporal lobe infarct without change. Arachnoid cyst or encephalomalacia at the base of the right temporal lobe without change. No hemorrhage. White count 6.7. Hemoglobin 17.0. Sodium 136. Potassium 3.2. BUN 24. Creatinine 0.65. Free T4 6 0.43. ProBNP 950. Blood glucose 127. She remains afebrile. Maintaining O2 saturations in the 90s on room air. Hemodynamically stable. Heart rate in the 70s. Remains in atrial fibrillation. Echocardiogram revealed severely impaired left ventricular systolic function with ejection fraction 25-30%. Severe global hypokinesia. Possible thrombus in the LV apex. She remains on a heparin drip. 0.9 normal saline at KVO. She is continued on Tapazole and Solu- Cortef. The patient is seen today 01/28/2022 in follow-up in the intensive care unit. She is currently resting comfortably in bed. Awake and alert. She had been having issues with waxing and waning mentation. Another urgent computed tomography scan of the brain was performed about 5:00 this morning. Continues to show left femoral lobe infarct without change compared to previous. Old right impaired posterior temporal lobe small in 4 or arachnoid cysts unchanged. There were no new abnormalities compared to yesterday. MRI of the brain revealed a large subacute infarct in the left temporal lobe. Old infarct in the anterior surface of the medial right temporal lobe. Increased signal in the brainstem suggestive of microvascular ischemia or demyelinating disease at the albertina level. Brain did not change compared to the previous CAT scan. EEG is pending. This morning she is somewhat slow to respond. Speech somewhat gar bled. Still some weakness in the right upper extremity. Moving bilateral lower extremities. White count 6.1. Hemoglobin 17.5. Platelets 181. Sodium 137. Potassium 3.2. BUN 38. Creatinine 0.98. Free T4 5 0.89. Blood glucose 146. She remains on a heparin drip. Normal saline at 10 mL per hour. She remains in atrial fibrillation. She is on room air with O2 saturations in the 90s. She r emains on Solu-Cortef, Tapazole, Lipitor, aspirin and Aldactone. Currently in a -1.5 L balance. Objective - Vital Signs Vital signs: Vital Signs Temp 98.5 F 01/28/22 04:00 Pulse 84 01/28/22 07:30 Resp 15 01/28/22 07:30 BP 118/103 01/28/22 07:30 Pulse Ox 93 L 01/28/22 07:30 Intake & Output 01/27/22 01/28/22 01/28/22 18:59 06:59 18:59 Intake Total 850 110 10 Output Total 285 475 Balance 565 -365 10 Weight 82.5 kg Intake: IV 120 110 10 Sodium Chloride 0.9% 1, 120 110 10 000 ml @ 25 mls/hr IV . Q24H KAMILAH Rx#:[id number] Intake, IV Titration 250 Amount Heparin Sod,Pork in 0.45% 250 NaCl 25,000 unit In 0.45 % NaCl 1 250ml.bag @ 11. 78 UNITS/KG/HR 10.003 mls /hr IV .Q24H KAMILAH Rx#: [id number] Oral 480 Output: Urine 285 475 Other: Voiding Method Indwelling Catheter # Voids 1 0 - Exam GENERAL EXAM: Alert, 57-year-old female patient, on room air, garbled speech, moving all fours, weakness of the right upper extremity, weakness of the right upper extremity, comfortable in no apparent distress. HEAD: Normocephalic. EYES: Normal reaction of pupils, equal size. NOSE: Clear with pink turbinates. THROAT: No erythema or exudates. NECK: No masses, no JVD. CHEST: No chest wall deformity. LUNGS: Equal air entry with no crackles, wheeze, rhonchi or dullness. CVS: S1 and S2 normal with an audible murmur, irregular rhythm. ABDOMEN: No hepatosplenomegaly, normal bowel sounds, no guarding or rigidity. SPINE: No scoliosis or deformity SKIN: No rashes CENTRAL NERVOUS SYSTEM: Still with some garbled speech, slow to respond, tone is normal in all 4 extremities. EXTREMITIES: Weakness of the right upper extremity There is no peripheral edema. No clubbing, no cyanosis. Peripheral pulses are intact. - Labs CBC & Chem 7: 01/28/22 04:03 01/28/22 04:03 Labs: Abnormal Lab Results - Last 24 Hours (Table) 01/27/22 01/27/22 01/27/22 Range/Units 11:45 16:40 21:49 RBC (3.80-5.40) m/uL Hgb (11.4-16.0) gm/dL Hct (34.0-46.0) % Lymphocytes # (1.0-4.8) k/uL APTT (22.0-30.0) sec Potassium (3.5-5.1) mmol/L BUN (7-17) mg/dL Glucose (74-99) mg/dL POC Glucose (mg/dL) 154 H 138 H 179 H (75-99) mg/dL Free T4 (0.78-2.19) ng/dL 01/28/22 01/28/22 01/28/22 Range/Units 04:03 04:03 04:03 RBC 6.33 H (3.80-5.40) m/uL Hgb 17.5 H (11.4-16.0) gm/dL Hct 54.7 H (34.0-46.0) % Lymphocytes # 0.7 L (1.0-4.8) k/uL APTT 48.6 H (22.0-30.0) sec Potassium 3.2 L (3.5-5.1) mmol/L BUN 38 H (7-17) mg/dL Glucose 146 H (74-99) mg/dL POC Glucose (mg/dL) (75-99) mg/dL Free T4 5.89 H (0.78-2.19) ng/dL 01/28/22 Range/Units 05:06 RBC (3.80-5.40) m/uL Hgb (11.4-16.0) gm/dL Hct (34.0-46.0) % Lymphocytes # (1.0-4.8) k/uL APTT (22.0-30.0) sec Potassium (3.5-5.1) mmol/L BUN (7-17) mg/dL Glucose (74-99) mg/dL POC Glucose (mg/dL) 134 H (75-99) mg/dL Free T4 (0.78-2.19) ng/dL Assessment and Plan Assessment: 1 Acute ischemic stroke, possibly related to cardiac embolism or could be related to thromboembolic disease involving the MCA. Follow-up computed tomography scan of the brain revealed a left temporal lobe infarct without change. Arachnoid cyst or encephalomalacia at the base of the right temporal lobe without change. No hemorrhage. MRI reveals a large subacute infarct in the left temporal lobe. Old infarct at the anterior surface of the medial right temporal lobe. Increased signal in the brainstem suggestive of microvascular is chemia or demyelinating disease at the albertina level. Brain not changed compared to previous computed tomography scan. EEG pending. 2 New onset atrial fibrillation with RVR, continued on a heparin drip 3 Mild systolic congestive heart failure, the patient found to have severe left ventricular systolic dysfunction with global hypokinesia ejection fraction 25- 30% 4 Possible left ventricular apical thrombus 5 New onset hyperthyroidism 6 Benign essential hypertension 7 Elevated liver enzymes could be related to her congestive heart failure/congestive hepatopathy Plan: The patient was seen and evaluated MRI, follow-up computed tomography scan of the brain and labs reviewed No evidence of intracranial hemorrhage Continued on a heparin drip EEG pending Remains on Tapazole and Solu-Cortef Cardiology and neurology are on the case Keep in the ICU another 24 hours for close monitoring We will continue to follow I have personally seen and examined the patient, performed the documentation and the assessment and plan as written. Number of minutes spent on the visit: 10.
[2022-01-28] MEDS: methIMAzole 5 MG TAB PO SCH ×3 (10:06→23:18)
[2022-01-28] MEDS: HYDROCORTISONE SUCCINATE 100 MG/2 ML VIAL IV SCH ×3 (10:06→23:18)
[2022-01-28] MEDS: ASPIRIN 81 MG PO SCH (10:08)
[2022-01-28] MEDS: DOCUSATE 100 MG CAP PO SCH ×2 (10:08→20:09)
[2022-01-28] MEDS: SPIRONOLACTONE 25 MG TAB PO SCH (10:09)
[2022-01-28] MEDS: PROPRANOLOL 20 MG TAB PO SCH ×3 (10:09→21:42)
--- NOTE | 2022-01-28 10:41 | P.PN ---
Subjective Progress Note Date: 01/28/22 I am seeing the patient for the for some during this admission for neurological management. Please refer to Dr. Quezada's notes for further details. Per nurse it was noted that she is having fluctuation of right sided weakness but currently doing better. It was decided by primary team not to be transferred since her thyroid storm is being managed at our facility as well patient and family refusal. Patient is on heparin drip since the patient has left ventricular thrombus that suspected. CT of the head was done around 5 inch a.m. and it's reported as left temporal lobe infarct without change compared to yesterday. Old right inferior posterior temporal lobe small infarct or arachnoid cyst without change. No evidence of a new abnormality compared to yesterday. I personally reviewed that a CT of the head there is no acute ischemic stroke and there is no at [place] hemorrhage at. I do agree the patient does have left temporal stroke by also feels she also has left parietal and is seems subacute to chronic and she has an old right inferior posterior temporal stroke. MRI of the brain without was performed on 01/27/2022 and was reported as large subacute infarct in the left temporal lobe at. Old infarct at the inferior surface of the medial right temporal lobe. Increased signal in the brainstem suggestive of microvascular ischemia or demyelinating disease at the pontine level. Brain not change compared to a CT yesterday. I personally reviewed the MRI and the patient has a subacute ischemic stroke over the left temporal parietal region and has an old over the right temporal region. Objective - Vital Signs Vital signs: Vital Signs Temp 98.5 F 01/28/22 04:00 Pulse 84 01/28/22 07:30 Resp 15 01/28/22 07:30 BP 118/103 01/28/22 07:30 Pulse Ox 93 L 01/28/22 07:30 Intake & Output 01/27/22 01/28/22 01/28/22 18:59 06:59 18:59 Intake Total 850 110 10 Output Total 285 475 Balance 565 -365 10 Weight 82.5 kg Intake: IV 120 110 10 Sodium Chloride 0.9% 1, 120 110 10 000 ml @ 25 mls/hr IV . Q24H [facility] Rx#:[id number] Intake, IV Titration 250 Amount Heparin Sod,Pork in 0.45% 250 NaCl 25,000 unit In 0.45 % NaCl 1 250ml.bag @ 11. 78 UNITS/KG/HR 10.003 mls /hr IV .Q24H [facility] Rx#: [id number] Oral 480 Output: Urine 285 475 Other: Voiding Method Indwelling Catheter # Voids 1 0 - Exam GENERAL: The patient is lying in bed and is not in acute distress. NEUROLOGICAL: Higher mental function: The patient is awake, alert, oriented to self. Patient is following simple commands to pontomine. Patient has wernicke aphasia. Cranial nerves: The pupils are round, equal and reactive to ligh. Could not assess visual sweeney because of cooperation. EOM: Is tracking throughout the room. Mild right facial weakness. No dysarthria. Motor: The strength is hard to assess individual muscles but right side seems weaker compared to left side but is able to lift above gravity and no drift. Normal tone and bulk. Sensory: Could not assess Cerebellar: Could not assess. WORK-UP: CT of the head was done around 5 inch a.m. and it's reported as left temporal lobe infarct without change compared to yesterday. Old right inferior posterior temporal lobe small infarct or arachnoid cyst without change. No evidence of a new abnormality compared to yesterday. I personally reviewed that a CT of the head there is no acute ischemic stroke and there is no at [place] hemorrhage at. I do agree the patient does have left temporal stroke by also feels she also has left parietal and is seems subacute to chronic and she has an old right inferior posterior temporal stroke. MRI of the brain without was performed on 01/27/2022 and was reported as large subacute infarct in the left temporal lobe at. Old infarct at the inferior surface of the medial right temporal lobe. Increased signal in the brainstem suggestive of microvascular ischemia or demyelinating disease at the pontine level. Brain not change compared to a CT yesterday. I personally reviewed the MRI and the patient has a subacute ischemic stroke over the left temporal parietal region and has an old over the right temporal region. CTA of head and neck showed an abrupt cutoff of the left M2 segment of the MCA consistent with occlusion. No evidence of dissection of the cervical internal carotid arteries or vertebral arteries or any evidence of significant stenosis at the carotid bifurcations. No evidence of intracranial aneurysm. Redemonstration of encephalomalacia of remote right temporal lobe injury and acute/subacute CVA of the left frontal parietal extending to the left temporal lobe. Patient's 2-D echo revealed atrial fibrillation, left ventricle is mildly dilated. Mild concentric LVH. Severe global hypokinesis of left ventricle. Left ventricle systolic function is severely impaired with EF between 25-30%. Left atrium is severely dilated. Right atrium is moderately dilated. Possible thrombus in the left ventricular apex. Fasting a.m. lipid panel with cholesterol 166, LDL 106, HDL 48 and triglycerides 59. Hemoglobin A1c 6.0. TSH is <0.015, free T4 is > 6.99. - Labs CBC & Chem 7: 01/28/22 04:03 01/28/22 04:03 Labs: Abnormal Lab Results - Last 24 Hours (Table) 01/27/22 01/27/22 01/27/22 Range/Units 11:45 16:40 21:49 RBC (3.80-5.40) m/uL Hgb (11.4-16.0) gm/dL Hct (34.0-46.0) % Lymphocytes # (1.0-4.8) k/uL APTT (22.0-30.0) sec Potassium (3.5-5.1) mmol/L BUN (7-17) mg/dL Glucose (74-99) mg/dL POC Glucose (mg/dL) 154 H 138 H 179 H (75-99) mg/dL Free T4 (0.78-2.19) ng/dL 01/28/22 01/28/22 01/28/22 Range/Units 04:03 04:03 04:03 RBC 6.33 H (3.80-5.40) m/uL Hgb 17.5 H (11.4-16.0) gm/dL Hct 54.7 H (34.0-46.0) % Lymphocytes # 0.7 L (1.0-4.8) k/uL APTT 48.6 H (22.0-30.0) sec Potassium 3.2 L (3.5-5.1) mmol/L BUN 38 H (7-17) mg/dL Glucose 146 H (74-99) mg/dL POC Glucose (mg/dL) (75-99) mg/dL Free T4 5.89 H (0.78-2.19) ng/dL 01/28/22 Range/Units 05:06 RBC (3.80-5.40) m/uL Hgb (11.4-16.0) gm/dL Hct (34.0-46.0) % Lymphocytes # (1.0-4.8) k/uL APTT (22.0-30.0) sec Potassium (3.5-5.1) mmol/L BUN (7-17) mg/dL Glucose (74-99) mg/dL POC Glucose (mg/dL) 134 H (75-99) mg/dL Free T4 (0.78-2.19) ng/dL Assessment and Plan Assessment: * Acute ischemic stroke, multifocal region, most likely related to cardioembolism. Patient has wernicke aphasia, right homonymous hemianopia and some mild weakness on right side. * Reported Fluctuation of right sided weakness: Rule out seizure. * New onset atrial fibrillation with rapid ventricular rate--on heparin drip * Possible left ventricular thrombus--on heparin drip * Acute systolic heart failure, EF 25-30%. * Hyperthyroidism and appears thyrotoxicosis, newly diagnosed. * Abnormal hepatic enzymes. * Hypertension Plan: * The patient is currently on heparin drip for possible LV thrombus and A-fib. Patient was also on ASA 81mg daily and from neurological perspective antiplatelets is not needed. Recommend decreasing lipitor from 80mg qhs to 40mg qhs. * EEG is ordered since patient is having fluctuation of symptoms to rule out seizure. I will not start antiepileptic drug unless there is epileptiform discharges or seizure on the EEG. * Continue neuro checks * Continue cardiac monitoring. * Cardiology team is on board. * PT, OT and DEVELOPMENT AND PLANNING ENGINEER are on board. * Will defer the rest of medical management to the primary team and ICU team. * For DVT prophylaxis: on Heparin drip. The plan is discussed with the primary team and her nurse. Orville Monahan M.D. Neuro-Hospitalist. Time with Patient: Less than 30
[2022-01-28 11:18] LABS: Glucose,Whole Blood 117 mg/dL (75-99)
--- NOTE | 2022-01-28 12:33 | EEG ---
ELECTROENCEPHALOGRAM REPORT DATE OF SERVICE: 01/28/2022. CLINICAL HISTORY: This is a 57-year-old woman with recent stroke who has fluctuation of her right- sided weakness. The video EEG is obtained to evaluate for seizure epileptiform activity. RELEVANT MEDICATION: The patient is not on any antiepileptic drugs. EEG TYPE: A routine 21-channel EEG is performed with video using the 10/20 electrode placement system. DESCRIPTION: Only wakefulness is obtained. During awake state, the posterior-dominant rhythm consists of 10 hertz over the right hemisphere, while on the left the posterior- dominant rhythm consists of 9 to 10 hertz that is somewhat poorly modulated. There is no physiological sleep architecture seen. There is significant slowing over the left temporal parietal central derivatives and there is occasional to moderate slowing over the right temporal central derivative. Interictal and ictal is none. ACTIVATION PROCEDURE: Photic stimulation did not evoke a posterior driving response. There was no abnormality during the photic stimulation. Hyperventilation was not performed. CLINICAL INTERPRETATION: This is an abnormal routine EEG. The focal slowing as described above is consistent with the patient's history of strokes. Otherwise, the background is normal and there are no epileptiform discharges or seizure on the EEG. Clinical correlation is recommended. MMODL / IJN: [id number] / MTDNorm
[2022-01-28] MEDS: HEPARIN SOD,PORK IN 0.45% NACL 25,000 UNIT in 0.45% NACL 1 250ML.BAG IV SCH (14:50)
[2022-01-28] MEDS: [UNRECOGNIZED DRUG - OTHER] PO SCH ×2 (14:53→20:06)
[2022-01-28 17:35] LABS: Glucose,Whole Blood 175 mg/dL (75-99)
[2022-01-28 20:54] LABS: Glucose,Whole Blood 157 mg/dL (75-99)
[2022-01-28] MEDS ORDERED: ATORVASTATIN 40 MG TAB PO SCH (21:00)
[2022-01-29 07:18] LABS: Glucose,Whole Blood 121 mg/dL (75-99)
[2022-01-29] MEDS: HYDROCORTISONE SUCCINATE 100 MG/2 ML VIAL IV SCH ×2 (08:04→16:37)
[2022-01-29] MEDS: DOCUSATE 100 MG CAP PO SCH ×2 (08:04→21:00)
[2022-01-29] MEDS: SPIRONOLACTONE 25 MG TAB PO SCH (08:04)
[2022-01-29] MEDS: [UNRECOGNIZED DRUG - OTHER] PO SCH ×2 (08:05→21:01)
[2022-01-29] MEDS: PROPRANOLOL 20 MG TAB PO SCH ×3 (08:05→21:00)
[2022-01-29 08:09] LABS: Basophils % (A) 0 %; Eosinophils % (A) 0 %; HCT 54.9 % (34.0-46.0); HGB 17.8 gm/dL (11.4-16.0); Hypochromasia Slight; Lymphocytes # (A) 1.2 k/uL (1.0-4.8); Lymphocytes % (A) 15 %; MCH 28.1 pg (25.0-35.0); MCHC 32.3 g/dL (31.0-37.0); MCV 86.9 fL (80.0-100.0); Mean Platelet Volume 10.5; Monocytes # (A) 0.6 k/uL (0-1.0); Monocytes % (A) 7 %; Neutrophils # (A) 5.8 k/uL (1.3-7.7); Neutrophils % (A) 75 %; Platelet Count 155 k/uL (150-450); RBC 6.32 m/uL (3.80-5.40); RDW 15.3 % (11.5-15.5); WBC 7.8 k/uL (3.8-10.6)
[2022-01-29] MEDS: methIMAzole 5 MG TAB PO SCH ×2 (08:20→18:19)
[2022-01-29 08:24] LABS: African American GFR (CKD) >90 (>60 ml/min/1.73 sqM); Anion Gap 9 mmol/L; Blood Urea Nitrogen 39 mg/dL (7-17); Calcium 9.7 mg/dL (8.4-10.2); Carbon Dioxide 26 mmol/L (22-30); Chloride 103 mmol/L (98-107); Glucose 130 mg/dL (74-99); Non-African American GFR(CKD) 90 (>60 ml/min/1.73 sqM); Sodium 138 mmol/L (137-145)
[2022-01-29 08:28] LABS: Magnesium 2.1 mg/dL (1.6-2.3); Potassium 3.5 mmol/L (3.5-5.1)
[2022-01-29] MEDS ORDERED: CLOPIDOGREL 75 MG TAB PO SCH (09:00)
[2022-01-29 09:01] LABS: T4, Free (Free Thyroxine) 5.52 ng/dL (0.78-2.19)
--- NOTE | 2022-01-29 09:18 | P.PN ---
Subjective History of Present Illness: The patient is a 56-year-old female who has not seen a physician in over 30 years who is brought into the emergency room with confusion. The history is obtained from her . Apparently he was out of town on business last week and when he called her and the texted her on she did not answer. He returned to town on Thursday and she was somewhat confused and that persisted today. She is moving, he did not notice a slurred speech but she appears to be unable to answer questions. She came into the emergency room and was noted to be in atrial fibrillation of unknown duration. She recalls that she went out for dinner on Thursday and she did not like the food but she cannot remember what happened on or yesterday. She denies any palpitations, chest discomfort or dyspnea. She has no prior history of PND, orthopnea or peripheral edema. She is usually active physically, walks the dog without symptoms. She has no history of documented diabetes, hypertension or hyperlipidemia but as noted she has not seen a physician in a long time. She takes no medication at home. She drinks caffeine occasionally and alcohol on a social basis. January 26: The patient has been transferred to the ICU. She remains awake but confused. In atrial fibrillation with controlled ventricular response. Her echocardiogram yesterday showed severe cardiomyopathy with possible apical thrombus. She had moderate mitral and tricuspid regurgitation. She continues to be on IV Cardizem and was started on IV heparin yesterday. There is evidence of severe hyperthyroidism that could be the cause of her atrial fibrillation. 01/27 Patient seen and examined. Patient did have a further episode of confusion how ever this morning feeling somewhat better and believes aphasia somewhat improving. Heart rates have been better controlled mainly 90s to 110s still in A. fib. She denies any chest pain or pressure, no shortness breath. Patient has been started on methimazole as well as site Cortef for hyperthyroidism. 01/28 Patient seen and examined. Patient somewhat anxious and still remains somewhat confused stating she ate dinner today however answering some questions appropriately. Denies any chest pain or pressure. No shortness breath. Heart rates have been in the 90s to 110s. T4 noted to be mildly improved. Urine output has been marginal. Patient eating approximate 75% of her meal. 01/29 Patient seen and examined. Patient states she is feeling well. Able to stand up with assist area heart rates mainly in the 90s and she was changed from metoprolol to propranolol to help with reduction of conversion of T4 to T3. T4 5.5 today. Physical Examination: Vitals reviewed Head: Normocephalic. Eyes: Sclerae nonicteric. Neck: Good carotid upstroke, no bruit, no jugular venous distention. Lungs: Clear to auscultation. Heart: Irregular rate and rhythm, S1-S2, no S3, no rub. Holosystolic murmur at the base. Abdomen: Soft nontender, positive bowel sounds no organomegaly. Extremities: No edema, intact distal pulses. Impression: 1. CVA with abnormal CT angiogram 2. Atrial fibrillation of unknown duration with mild RVR exacerbated by hyperthyroid state 3. Cardiomyopathy, severe of unknown duration or etiology with possible apical thrombus. Likely tachycardia induced 4. Hyperthyroidism 5. Confusion related to the stroke Plan: Heart rates better controlled with propranolol and treatment of her hyperthyroid state. She appears to slowly be recovering neurologically. Continue with propranolol. Change heparin drip to Eliquis and check coverage. Objective - Vital Signs Vital signs: Vital Signs Temp 98.8 F 01/29/22 04:00 Pulse 106 H 01/29/22 07:00 Resp 14 01/29/22 07:00 BP 137/96 01/29/22 07:00 Pulse Ox 95 01/29/22 08:16 Intake & Output 01/28/22 01/29/22 01/29/22 18:59 06:59 18:59 Intake Total 610 120 10 Output Total 550 400 Balance 60 -280 10 Weight 81.5 kg Intake: IV 120 120 10 Sodium Chloride 0.9% 1, 120 120 10 000 ml @ 25 mls/hr IV . Q24H [facility] Rx#:[id number] Intake, IV Titration 250 Amount Heparin Sod,Pork in 0.45% 250 NaCl 25,000 unit In 0.45 % NaCl 1 250ml.bag @ 11. 78 UNITS/KG/HR 10.003 mls /hr IV .Q24H [facility] Rx#: [id number] Oral 240 Output: Urine 0 400 Urine/Stool Mix 550 Other: Voiding Method External Catheter External Catheter # Voids 1 0 0 - Labs CBC & Chem 7: 01/29/22 07:30 01/29/22 07:30 Labs: Abnormal Lab Results - Last 24 Hours (Table) 01/28/22 01/28/22 01/28/22 Range/Units 11:16 17:33 20:53 RBC (3.80-5.40) m/uL Hgb (11.4-16.0) gm/dL Hct (34.0-46.0) % APTT (22.0-30.0) sec BUN (7-17) mg/dL Glucose (74-99) mg/dL POC Glucose (mg/dL) 117 H 175 H 157 H (75-99) mg/dL Free T4 (0.78-2.19) ng/dL 01/29/22 01/29/22 01/29/22 Range/Units 07:16 07:30 07:30 RBC 6.32 H (3.80-5.40) m/uL Hgb 17.8 H (11.4-16.0) gm/dL Hct 54.9 H (34.0-46.0) % APTT 46.8 H (22.0-30.0) sec BUN (7-17) mg/dL Glucose (74-99) mg/dL POC Glucose (mg/dL) 121 H (75-99) mg/dL Free T4 (0.78-2.19) ng/dL 01/29/22 Range/Units 07:30 RBC (3.80-5.40) m/uL Hgb (11.4-16.0) gm/dL Hct (34.0-46.0) % APTT (22.0-30.0) sec BUN 39 H (7-17) mg/dL Glucose 130 H (74-99) mg/dL POC Glucose (mg/dL) (75-99) mg/dL Free T4 5.52 H (0.78-2.19) ng/dL
--- NOTE | 2022-01-29 10:03 | P.PN ---
Subjective Progress Note Date: 01/29/22 Had episodic confusion and "fall" as well as some paranoia overnight. FT4 today shows improvement again on tapazole and hydrocortisone. HRs better controlled on oral propanolol. Heparin gtt switched to Eliquis by cardiology. Gen: awake, alert HEENT: normocephalic, atraumatic, good hearing acuity, moist mucous membranes Resp: good air exchange, breathing comfortably with no accessory muscle use CVS: good distal perfusion x 4, GI: soft, NTTP, ND : no SPT, no CVAT, hernandez catheter not present MSK: no pitting edema, no clubbing Neuro: non-focal, moving all extremities with 5 out of 5 motor strength, no reported loss of sensation to light touch, expressive aphasia, mild right-sided chela-neglect Psych: cooperative, euthymic mood Assessment: Acute embolic stroke Hypertensive urgency Thyrotoxicosis Acute Systolic Heart Failure, EF 25-30% LV Thrombus Congestive Hepatopathy Paroxysmal atrial fibrillation with rapid ventricular response Plan: -Admit to inpatient, telemetry -Cardiology consult -Neurology consult -discontinued antiplatlet bc no evidence of CAD, PAD, CVD (embolic origin only) -started heparin gtt given thrombus, transitioned to eliquis -Continued statin, decreased to 20mg given good lipid profile -PT/OT, appreciate recs -Speech therapy, appreciate recs -Started hydrochlorothiazide, now d/c'd -Lipid panel = TC/HDL/LDL - 166/48/106 - A1c = 6.0 -TSH with reflex to free T4 daily - 01/27 - TSH/FT4 = ?/6.43 -Echocardiogram with global EF reduction and hypokinesis to 25-30%, LV thrombus, RVE -MRI of the brain, right temporal stroke, left temporal stroke, albertina ischemia -methimazole, propanolol per cardiology, hydrocortisone decreased to 50mg IV q8h due to paranoia/confusion -iodine drops -lisinopril, aldactone -remote endo consultation from 01/29: same dose tapazole, iodine gtt sublingual through today, daily FT4; continue hydrocortisone until FT4 < 4, but decrease to 50 IV q8h Patient is a full code DVT prophylaxis with eliquis Objective - Vital Signs Vital signs: Vital Signs Temp 98.8 F 01/29/22 04:00 Pulse 106 H 01/29/22 07:00 Resp 14 01/29/22 07:00 BP 137/96 01/29/22 07:00 Pulse Ox 95 01/29/22 08:16 Intake & Output 01/28/22 01/29/22 01/29/22 18:59 06:59 18:59 Intake Total 610 120 10 Output Total 550 400 Balance 60 -280 10 Weight 81.5 kg Intake: IV 120 120 10 Sodium Chloride 0.9% 1, 120 120 10 000 ml @ 25 mls/hr IV . Q24H [facility] Rx#:[id number] Intake, IV Titration 250 Amount Heparin Sod,Pork in 0.45% 250 NaCl 25,000 unit In 0.45 % NaCl 1 250ml.bag @ 11. 78 UNITS/KG/HR 10.003 mls /hr IV .Q24H [facility] Rx#: [id number] Oral 240 Output: Urine 0 400 Urine/Stool Mix 550 Other: Voiding Method External Catheter External Catheter # Voids 1 0 0 - Labs CBC & Chem 7: 01/29/22 07:30 01/29/22 07:30 Labs: Abnormal Lab Results - Last 24 Hours (Table) 01/28/22 01/28/22 01/28/22 Range/Units 11:16 17:33 20:53 RBC (3.80-5.40) m/uL Hgb (11.4-16.0) gm/dL Hct (34.0-46.0) % APTT (22.0-30.0) sec BUN (7-17) mg/dL Glucose (74-99) mg/dL POC Glucose (mg/dL) 117 H 175 H 157 H (75-99) mg/dL Free T4 (0.78-2.19) ng/dL 01/29/22 01/29/22 01/29/22 Range/Units 07:16 07:30 07:30 RBC 6.32 H (3.80-5.40) m/uL Hgb 17.8 H (11.4-16.0) gm/dL Hct 54.9 H (34.0-46.0) % APTT 46.8 H (22.0-30.0) sec BUN (7-17) mg/dL Glucose (74-99) mg/dL POC Glucose (mg/dL) 121 H (75-99) mg/dL Free T4 (0.78-2.19) ng/dL 01/29/22 Range/Units 07:30 RBC (3.80-5.40) m/uL Hgb (11.4-16.0) gm/dL Hct (34.0-46.0) % APTT (22.0-30.0) sec BUN 39 H (7-17) mg/dL Glucose 130 H (74-99) mg/dL POC Glucose (mg/dL) (75-99) mg/dL Free T4 5.52 H (0.78-2.19) ng/dL
[2022-01-29] MEDS ORDERED: Potassium Replacement Protocol 1 EACH MISC MISCELLANE PRN (10:12)
[2022-01-29] MEDS: APIXABAN 5 MG TAB PO SCH ×2 (10:19→21:00)
--- NOTE | 2022-01-29 10:20 | P.PN ---
Subjective Progress Note Date: 01/29/22 This is a 52-year-old female, no previous medical history . Patient was brought into the ER yesterday morning around 10:16 AM with relatively acute onset of altered mental status and speech difficulty. The patient herself is a very poor historian however her volunteered most of the information. Apparently she was in her normal state until and he was out of town, patient suddenly stopped next thing him, and he was in a trip to [place]. Last text from the to the was around 11:44 AM on . Patient came back home on Thursday at 5 PM, and he clearly noticed right away that his was disoriented, confused, otherwise she was physically fine. Patient was complaini ng at the time of mild headache. The did not think much of it until the following day noticed that the patient remained about the same and she was brought into the ER. Patient was brought in around and a.m. on Thursday, and she was noted to have elevated blood pressure of 181/144. She was also noted to have elevated T4 and low TSH. And she was in atrial fibrillation with RVR. CT of the head showed subacute CVA of the left frontal parietal region extending into the left temporal lobe. Patient was admitted, she was seen by urology on consultation, and CT angiogram of the head and neck showed abrupt cutoff of the left M2 segment of the middle cerebral artery consistent with occlusion. Echocardiogram showed left ventricular thrombus patient was admitted, started on heparin, and this consult was initiated. Last night I was made aware of this patient, and I'll arrange for the patient to be admitted to the ICU for close monitoring. In the meantime I believe the patient is in the process of being transferred to [facility]. For her hyperthyroidism, patient was started on Tapazole. During my evaluation, the patient was clearly confused, she had no idea where she was, she had some difficulty with the speech, and she clearly has impaired and judgment. He knew however the name of her she did not know the name of the present or the city she lives in. Echocardiogram also showed impaired systolic function with ejection fraction of 25-30%. Patient is now on low intensity heparin. And she is also on aspirin. Being followed closely by neurology and by cardiology on the case. MRI of the brain is scheduled. The patient is seen today 01/27/2022 in follow-up in the intensive care unit. She is currently awake and alert. She is still somewhat restless and moving about in bed. Moving all fours. Speech is somewhat garbled. Follow-up computed tomography scan of the brain last evening revealed left temporal lobe infarct without change. Arachnoid cyst or encephalomalacia at the base of the right temporal lobe without change. No hemorrhage. White count 6.7. Hemoglobin 17.0. Sodium 136. Potassium 3.2. BUN 24. Creatinine 0.65. Free T4 6 0.43. ProBNP 950. Blood glucose 127. She remains afebrile. Maintaining O2 saturations in the 90s on room air. Hemodynamically stable. Heart rate in the 70s. Remains in atrial fibrillation. Echocardiogram revealed severely impaired left ventricular systolic function with ejection fraction 25-30%. Severe global hypokinesia. Possible thrombus in the LV apex. She remains on a heparin drip. 0.9 normal saline at KVO. She is continued on Tapazole and Solu- Cortef. The patient is seen today 01/28/2022 in follow-up in the intensive care unit. She is currently resting comfortably in bed. Awake and alert. She had been having issues with waxing and waning mentation. Another urgent computed tomography scan of the brain was performed about 5:00 this morning. Continues to show left femoral lobe infarct without change compared to previous. Old right impaired posterior temporal lobe small in 4 or arachnoid cysts unchanged. There were no new abnormalities compared to yesterday. MRI of the brain revealed a large subacute infarct in the left temporal lobe. Old infarct in the anterior surface of the medial right temporal lobe. Increased signal in the brainstem suggestive of microvascular ischemia or demyelinating disease at the albertina level. Brain did not change compared to the previous CAT scan. EEG is pending. This morning she is somewhat slow to respond. Speech somewhat gar bled. Still some weakness in the right upper extremity. Moving bilateral lower extremities. White count 6.1. Hemoglobin 17.5. Platelets 181. Sodium 137. Potassium 3.2. BUN 38. Creatinine 0.98. Free T4 5 0.89. Blood glucose 146. She remains on a heparin drip. Normal saline at 10 mL per hour. She remains in atrial fibrillation. She is on room air with O2 saturations in the 90s. She r emains on Solu-Cortef, Tapazole, Lipitor, aspirin and Aldactone. Currently in a -1.5 L balance. The patient is seen today 01/29/2022 in follow-up in the intensive care unit. She is currently resting comfortably in bed. Awake and alert in no acute distress. She did get herself out of bed and was found sitting on the floor earlier this morning. She is still somewhat slow to respond. EEG revealed slowing consistent with the patient's history of strokes. Otherwise the background is normal and there is no epileptiform discharges or seizure on the EEG. white count 7.8. Hemoglobin 17.8. Sodium 138. Potassium 3.5. Bicarb 26. BUN 39. Creatinine 0.75. Free T4 5.52. She remains on Solu-Cortef, Tapazole. Currently on a heparin drip and the plan is to be initiated on Eliquis. Objective - Vital Signs Vital signs: Vital Signs Temp 98.0 F 01/29/22 08:00 Pulse 101 H 01/29/22 10:00 Resp 35 H 01/29/22 10:00 BP 111/53 01/29/22 10:00 Pulse Ox 95 01/29/22 10:00 Intake & Output 01/28/22 01/29/22 01/29/22 18:59 06:59 18:59 Intake Total 610 120 150 Output Total 550 400 300 Balance 60 -280 -150 Weight 81.5 kg Intake: IV 120 120 30 Sodium Chloride 0.9% 1, 120 120 30 000 ml @ 25 mls/hr IV . Q24H KAMILAH Rx#:[id number] Intake, IV Titration 250 Amount Heparin Sod,Pork in 0.45% 250 NaCl 25,000 unit In 0.45 % NaCl 1 250ml.bag @ 11. 78 UNITS/KG/HR 10.003 mls /hr IV .Q24H KAMILAH Rx#: [id number] Oral 240 120 Output: Urine 0 400 300 Urine/Stool Mix 550 Other: Voiding Method External Catheter External Catheter External Catheter # Voids 1 0 0 - Exam GENERAL EXAM: Alert, 57-year-old female patient, on room air, slow to respond, moving all fours, weakness of the right upper extremity, comfortable in no apparent distress. HEAD: Normocephalic. EYES: Normal reaction of pupils, equal size. NOSE: Clear with pink turbinates. THROAT: No erythema or exudates. NECK: No masses, no JVD. CHEST: No chest wall deformity. LUNGS: Equal air entry with no crackles, wheeze, rhonchi or dullness. CVS: S1 and S2 normal with an audible murmur, irregular rhythm. ABDOMEN: No hepatosplenomegaly, normal bowel sounds, no guarding or rigidity. SPINE: No scoliosis or deformity SKIN: No rashes CENTRAL NERVOUS SYSTEM: Still with some garbled speech, slow to respond, tone is normal in all 4 extremities. EXTREMITIES: Weakness of the right upper extremity There is no peripheral edema. No clubbing, no cyanosis. Peripheral pulses are intact. - Labs CBC & Chem 7: 01/29/22 07:30 01/29/22 07:30 Labs: Abnormal Lab Results - Last 24 Hours (Table) 01/28/22 01/28/22 01/28/22 Range/Units 11:16 17:33 20:53 RBC (3.80-5.40) m/uL Hgb (11.4-16.0) gm/dL Hct (34.0-46.0) % APTT (22.0-30.0) sec BUN (7-17) mg/dL Glucose (74-99) mg/dL POC Glucose (mg/dL) 117 H 175 H 157 H (75-99) mg/dL Free T4 (0.78-2.19) ng/dL 01/29/22 01/29/22 01/29/22 Range/Units 07:16 07:30 07:30 RBC 6.32 H (3.80-5.40) m/uL Hgb 17.8 H (11.4-16.0) gm/dL Hct 54.9 H (34.0-46.0) % APTT 46.8 H (22.0-30.0) sec BUN (7-17) mg/dL Glucose (74-99) mg/dL POC Glucose (mg/dL) 121 H (75-99) mg/dL Free T4 (0.78-2.19) ng/dL 01/29/22 Range/Units 07:30 RBC (3.80-5.40) m/uL Hgb (11.4-16.0) gm/dL Hct (34.0-46.0) % APTT (22.0-30.0) sec BUN 39 H (7-17) mg/dL Glucose 130 H (74-99) mg/dL POC Glucose (mg/dL) (75-99) mg/dL Free T4 5.52 H (0.78-2.19) ng/dL Assessment and Plan Assessment: 1 Acute ischemic stroke, possibly related to cardiac embolism or could be related to thromboembolic disease involving the MCA. Follow-up computed tomography scan of the brain revealed a left temporal lobe infarct without change. Arachnoid cyst or encephalomalacia at the base of the right temporal lobe without change. No hemorrhage. MRI reveals a large subacute infarct in the left temporal lobe. Old infarct at the anterior surface of the medial right temporal lobe. Increased signal in the brainstem suggestive of microvascular ischemia or demyelinating disease at the albertina level. Brain not changed compared to previous computed tomography scan. EEG revealed slowing with evidence of strokes but no epileptic discharges. 2 New onset atrial fibrillation with RVR, continued on a heparin drip. To be transitioned to Eliquis. 3 Mild systolic congestive heart failure, the patient found to have severe left ventricular systolic dysfunction with global hypokinesia ejection fraction 25- 30% 4 Possible left ventricular apical thrombus 5 New onset hyperthyroidism, suspected thyrotoxicosis 6 Benign essential hypertension 7 Elevated liver enzymes could be related to her congestive heart failure/congestive hepatopathy Plan: The patient was seen and evaluated Continued on a heparin drip To be transitioned to Eliquis EEG results reviewed Remains on Tapazole and Solu-Cortef Cardiology and neurology are on the case PT/OT consulted Probable transfer out of the ICU today We will continue to follow I have personally seen and examined the patient, performed the documentation and the assessment and plan as written. Number of minutes spent on the visit: 10.
[2022-01-29] MEDS ORDERED: POTASSIUM CHLORIDE ER 20 MEQ TAB.ER PO SCH (11:00)
--- NOTE | 2022-01-29 11:06 | P.PN ---
Subjective Progress Note Date: 01/29/22 Overnight the patient was agitated and somewhat restless. Patient is on steroids for her thyroid condition. But today she is accompanied with her and seems to be doing better. No seizure-like activity noted yesterday or today. No worsening of her neurological condition. Objective - Vital Signs Vital signs: Vital Signs Temp 98.0 F 01/29/22 08:00 Pulse 101 H 01/29/22 10:00 Resp 35 H 01/29/22 10:00 BP 111/53 01/29/22 10:00 Pulse Ox 95 01/29/22 10:00 Intake & Output 01/28/22 01/29/22 01/29/22 18:59 06:59 18:59 Intake Total 610 120 160 Output Total 550 400 300 Balance 60 -280 -140 Weight 81.5 kg Intake: IV 120 120 40 Sodium Chloride 0.9% 1, 120 120 40 000 ml @ 25 mls/hr IV . Q24H KAMILAH Rx#:[id number] Intake, IV Titration 250 Amount Heparin Sod,Pork in 0.45% 250 NaCl 25,000 unit In 0.45 % NaCl 1 250ml.bag @ 11. 78 UNITS/KG/HR 10.003 mls /hr IV .Q24H KAMILAH Rx#: [id number] Oral 240 120 Output: Urine 0 400 300 Urine/Stool Mix 550 Other: Voiding Method External Catheter External Catheter External Catheter # Voids 1 0 0 - Exam GENERAL: The patient is lying in bed and is not in acute distress. NEUROLOGICAL: Higher mental function: The patient is awake, alert, oriented to self. Upon showing her watch she stated time and correctly stated glasses. Patient is following simple commands to pontomine. Patient has component of expressive and at time wernicke aphasia. Cranial nerves: The pupils are round, equal and reactive to light. Could not assess visual sweeney because of cooperation but seems has right visual field cut. EOM: Is tracking throughout the room. Subtle right nasolabial flattening.. No dysarthria. Motor: The strength is hard to assess individual muscles but right side seems weaker compared to left side but is able to lift above gravity and no drift. Normal tone and bulk. Sensory: Could not assess Cerebellar: Could not assess. WORK-UP: CT of the head was done around 5 inch a.m. and it's reported as left temporal lobe infarct without change compared to yesterday. Old right inferior posterior temporal lobe small infarct or arachnoid cyst without change. No evidence of a new abnormality compared to yesterday. I personally reviewed that a CT of the head there is no acute ischemic stroke and there is no at [place] hemorrhage at. I do agree the patient does have left temporal stroke by also feels she also has left parietal and is seems subacute to chronic and she has an old right inferior posterior temporal stroke. MRI of the brain without was performed on 01/27/2022 and was reported as large subacute infarct in the left temporal lobe at. Old infarct at the inferior surface of the medial right temporal lobe. Increased signal in the brainstem suggestive of microvascular ischemia or demyelinating disease at the pontine level. Brain not change compared to a CT yesterday. I personally reviewed the MRI and the patient has a subacute ischemic stroke over the left temporal parietal region and has an old over the right temporal region. CTA of head and neck showed an abrupt cutoff of the left M2 segment of the MCA consistent with occlusion. No evidence of dissection of the cervical internal carotid arteries or vertebral arteries or any evidence of significant stenosis at the carotid bifurcations. No evidence of intracranial aneurysm. Red emonstration of encephalomalacia of remote right temporal lobe injury and acute/subacute CVA of the left frontal parietal extending to the left temporal lobe. Routine EEG on 01/28/2022 is abnormal. The slowing is consistent with the patient history of strokes. Otherwise the background is normal and there is no epileptiform discharges or seizure on the EEG. Patient's 2-D echo revealed atrial fibrillation, left ventricle is mildly dilated. Mild concentric LVH. Severe global hypokinesis of left ventricle. Left ventricle systolic function is severely impaired with EF between 25-30%. Left atrium is severely dilated. Right atrium is moderately dilated. Possible thrombus in the left ventricular apex. Fasting a.m. lipid panel with cholesterol 166, LDL 106, HDL 48 and triglycerides 59. Hemoglobin A1c 6.0. TSH is <0.015, free T4 is > 6.99. - Labs CBC & Chem 7: 01/29/22 07:30 01/29/22 07:30 Labs: Abnormal Lab Results - Last 24 Hours (Table) 01/28/22 01/28/22 01/28/22 Range/Units 11:16 17:33 20:53 RBC (3.80-5.40) m/uL Hgb (11.4-16.0) gm/dL Hct (34.0-46.0) % APTT (22.0-30.0) sec BUN (7-17) mg/dL Glucose (74-99) mg/dL POC Glucose (mg/dL) 117 H 175 H 157 H (75-99) mg/dL Free T4 (0.78-2.19) ng/dL 01/29/22 01/29/22 01/29/22 Range/Units 07:16 07:30 07:30 RBC 6.32 H (3.80-5.40) m/uL Hgb 17.8 H (11.4-16.0) gm/dL Hct 54.9 H (34.0-46.0) % APTT 46.8 H (22.0-30.0) sec BUN (7-17) mg/dL Glucose (74-99) mg/dL POC Glucose (mg/dL) 121 H (75-99) mg/dL Free T4 (0.78-2.19) ng/dL 01/29/22 Range/Units 07:30 RBC (3.80-5.40) m/uL Hgb (11.4-16.0) gm/dL Hct (34.0-46.0) % APTT (22.0-30.0) sec BUN 39 H (7-17) mg/dL Glucose 130 H (74-99) mg/dL POC Glucose (mg/dL) (75-99) mg/dL Free T4 5.52 H (0.78-2.19) ng/dL Assessment and Plan Assessment: * Acute ischemic to subacute stroke, multifocal region (left temporal/parietal and old on right temporal per MRI), most likely related to cardioembolism. Patient has a component of expressive and wernicke aphasia, right homonymous hemianopia, right mild hemiparesis. * Reported Fluctuation of right sided weakness: Rule out seizure. * New onset atrial fibrillation with rapid ventricular rate--on heparin drip * Possible left ventricular thrombus--on heparin drip * Acute systolic heart failure, EF 25-30%. * Hyperthyroidism and appears thyrotoxicosis, newly diagnosed. * Abnormal hepatic enzymes. * Hypertension Plan: * The patient is currently on heparin drip for possible LV thrombus and A-fib and will be transitioned to Eliquis. On Lipitor 20mg qhs. * MRI of the brain without was performed on 01/27/2022 and was reported as large subacute infarct in the left temporal lobe at. Old infarct at the inferior surface of the medial right temporal lobe. Increased signal in the brainstem suggestive of microvascular ischemia or demyelinating disease at the pontine level. Brain not change compared to a CT yesterday. I personally reviewed the MRI and the patient has a subacute ischemic stroke over the left temporal parietal region and has an old over the right temporal region. * Routine EEG on 01/28/2022 is abnormal. The slowing is consistent with the patient history of strokes. Otherwise the background is normal and there is no epileptiform discharges or seizure on the EEG. * Continue neuro checks * Continue cardiac monitoring. * Cardiology team is on board. * PT, OT and [employer] are on board. * Will defer the rest of medical management to the primary team and ICU team. * For DVT prophylaxis: on Heparin drip. The plan is discussed with the primary team and her (who is at bedside). Orville Monahan M.D. Neuro-Hospitalist. Time with Patient: Less than 30
[2022-01-29 12:04] LABS: Glucose,Whole Blood 120 mg/dL (75-99)
[2022-01-29 16:51] LABS: Glucose,Whole Blood 152 mg/dL (75-99)
[2022-01-29] MEDS ORDERED: ALPRAZolam 0.25 MG TAB PO PRN (18:50)
[2022-01-29] MEDS: ATORVASTATIN 20 MG TAB PO SCH (21:00)
[2022-01-30] MEDS: HYDROCORTISONE SUCCINATE 100 MG/2 ML VIAL IV SCH ×2 (00:19→08:27)
[2022-01-30] MEDS: methIMAzole 5 MG TAB PO SCH ×3 (00:19→16:42)
[2022-01-30 06:03] LABS: Glucose,Whole Blood 113 mg/dL (75-99)
[2022-01-30] MEDS: INSULIN ASPART (NovoLOG) 100 UNIT/ML VIAL SQ SCH ×4 (06:13→21:34)
[2022-01-30 06:40] LABS: Basophils % (A) 0 %; Eosinophils % (A) 0 %; HGB 17.3 gm/dL (11.4-16.0); Hypochromasia Slight; Lymphocytes # (A) 1.5 k/uL (1.0-4.8); Lymphocytes % (A) 11 %; MCH 26.7 pg (25.0-35.0); MCHC 30.7 g/dL (31.0-37.0); MCV 86.9 fL (80.0-100.0); Mean Platelet Volume 10.9; Monocytes # (A) 0.8 k/uL (0-1.0); Monocytes % (A) 6 %; Neutrophils # (A) 11.6 k/uL (1.3-7.7); Neutrophils % (A) 82 %; Platelet Count 186 k/uL (150-450); RDW 14.9 % (11.5-15.5); WBC 14.2 k/uL (3.8-10.6)
[2022-01-30 06:44] LABS: HCT 56.5 % (34.0-46.0)
[2022-01-30 07:27] LABS: African American GFR (CKD) >90 (>60 ml/min/1.73 sqM); Anion Gap 9 mmol/L; Blood Urea Nitrogen 35 mg/dL (7-17); Calcium 9.6 mg/dL (8.4-10.2); Carbon Dioxide 28 mmol/L (22-30); Chloride 101 mmol/L (98-107); Glucose 121 mg/dL (74-99); Non-African American GFR(CKD) >90 (>60 ml/min/1.73 sqM); Potassium 3.5 mmol/L (3.5-5.1); Sodium 138 mmol/L (137-145)
[2022-01-30 07:43] LABS: T4, Free (Free Thyroxine) 4.23 ng/dL (0.78-2.19)
[2022-01-30] MEDS ORDERED: LACTATED RINGERS 500 ML IV SCH (07:45)
[2022-01-30] MEDS: SPIRONOLACTONE 25 MG TAB PO SCH (08:25)
[2022-01-30] MEDS: POTASSIUM CHLORIDE ER 20 MEQ TAB.ER PO SCH ×2 (08:25→11:50)
[2022-01-30] MEDS: APIXABAN 5 MG TAB PO SCH ×2 (08:25→21:31)
[2022-01-30] MEDS: PROPRANOLOL 20 MG TAB PO SCH ×3 (08:26→21:39)
[2022-01-30] MEDS: DOCUSATE 100 MG CAP PO SCH ×2 (08:27→21:32)
[2022-01-30] MEDS: ACETAMINOPHEN TAB 325 MG TAB PO PRN ×2 (08:30→21:39)
--- NOTE | 2022-01-30 08:44 | P.PN ---
Subjective History of Present Illness: The patient is a 56-year-old female who has not seen a physician in over 30 years who is brought into the emergency room with confusion. The history is obtained from her . Apparently he was out of town on business last week and when he called her and the texted her on she did not answer. He returned to town on Thursday and she was somewhat confused and that persisted today. She is moving, he did not notice a slurred speech but she appears to be unable to answer questions. She came into the emergency room and was noted to be in atrial fibrillation of unknown duration. She recalls that she went out for dinner on Thursday and she did not like the food but she cannot remember what happened on or yesterday. She denies any palpitations, chest discomfort or dyspnea. She has no prior history of PND, orthopnea or peripheral edema. She is usually active physically, walks the dog without symptoms. She has no history of documented diabetes, hypertension or hyperlipidemia but as noted she has not seen a physician in a long time. She takes no medication at home. She drinks caffeine occasionally and alcohol on a social basis. January 26: The patient has been transferred to the ICU. She remains awake but confused. In atrial fibrillation with controlled ventricular response. Her echocardiogram yesterday showed severe cardiomyopathy with possible apical thrombus. She had moderate mitral and tricuspid regurgitation. She continues to be on IV Cardizem and was started on IV heparin yesterday. There is evidence of severe hyperthyroidism that could be the cause of her atrial fibrillation. 01/27 Patient seen and examined. Patient did have a further episode of confusion how ever this morning feeling somewhat better and believes aphasia somewhat improving. Heart rates have been better controlled mainly 90s to 110s still in A. fib. She denies any chest pain or pressure, no shortness breath. Patient has been started on methimazole as well as site Cortef for hyperthyroidism. 01/28 Patient seen and examined. Patient somewhat anxious and still remains somewhat confused stating she ate dinner today however answering some questions appropriately. Denies any chest pain or pressure. No shortness breath. Heart rates have been in the 90s to 110s. T4 noted to be mildly improved. Urine output has been marginal. Patient eating approximate 75% of her meal. 01/29 Patient seen and examined. Patient states she is feeling well. Able to stand up with assist area heart rates mainly in the 90s and she was changed from metoprolol to propranolol to help with reduction of conversion of T4 to T3. T4 5.5 today. 01/30 Patient seen and examined. Free T4 down to 4.2 today. A. fib with mostly heart rates in the 80s to low 100s. She denies any chest pain or pressure. She does not have much of an appetite. Denies any shortness breath. States she is having back pain apparently from sitting in bed. Still with similar confusion. Physical Examination: Vitals reviewed Head: Normocephalic. Eyes: Sclerae nonicteric. Neck: Good carotid upstroke, no bruit, no jugular venous distention. Lungs: Clear to auscultation. Heart: Irregular rate and rhythm, S1-S2, no S3, no rub. Holosystolic murmur at the base. Abdomen: Soft nontender, positive bowel sounds no organomegaly. Extremities: No edema, intact distal pulses. Impression: 1. CVA with abnormal CT angiogram 2. Atrial fibrillation of unknown duration with mild RVR exacerbated by hyperthyroid state, appears persistent 3. Cardiomyopathy, severe of unknown duration or etiology with possible apical thrombus. Likely tachycardia induced 4. Hyperthyroidism 5. Confusion related to the stroke Plan: Continue with propranolol and treatment of hyperthyroidism. Heart rates appear to be improving. Continue to monitor neurologic recovery. Continue with anticoagulation. Further recommendations to follow. Objective - Vital Signs Vital signs: Vital Signs Temp 97.5 F L 01/30/22 08:00 Pulse 96 01/30/22 08:00 Resp 18 01/30/22 08:00 BP 99/75 01/30/22 08:00 Pulse Ox 97 01/30/22 08:00 Intake & Output 01/29/22 01/30/22 01/30/22 18:59 06:59 18:59 Intake Total 170 Output Total 300 Balance -130 Intake: IV 50 Sodium Chloride 0.9% 1, 50 000 ml @ 25 mls/hr IV . Q24H KAMILAH Rx#:[id number] Oral 120 Output: Urine 300 Other: Voiding Method External Catheter Bedside Commode # Voids 0 1 - Labs CBC & Chem 7: 01/30/22 05:50 01/30/22 05:50 Labs: Abnormal Lab Results - Last 24 Hours (Table) 03/01/29/22 01/29/22 Range/Units 07:30 12:02 16:49 WBC (3.8-10.6) k/uL RBC (3.80-5.40) m/uL Hgb (11.4-16.0) gm/dL Hct (34.0-46.0) % MCHC (31.0-37.0) g/dL Neutrophils # (1.3-7.7) k/uL BUN (7-17) mg/dL Glucose (74-99) mg/dL POC Glucose (mg/dL) 120 H 152 H (75-99) mg/dL Free T4 5.52 H (0.78-2.19) ng/dL 01/30/22 01/30/22 01/30/22 Range/Units 05:50 05:50 06:02 WBC 14.2 H (3.8-10.6) k/uL RBC 6.50 H (3.80-5.40) m/uL Hgb 17.3 H (11.4-16.0) gm/dL Hct 56.5 H (34.0-46.0) % MCHC 30.7 L (31.0-37.0) g/dL Neutrophils # 11.6 H (1.3-7.7) k/uL BUN 35 H (7-17) mg/dL Glucose 121 H (74-99) mg/dL POC Glucose (mg/dL) 113 H (75-99) mg/dL Free T4 4.23 H (0.78-2.19) ng/dL
--- NOTE | 2022-01-30 10:10 | P.PN ---
Subjective Progress Note Date: 01/30/22 The patient is seen at bedside and per nurse just woke-up and patient feels a bit groggy. No new neurological issues. Objective - Vital Signs Vital signs: Vital Signs Temp 97.5 F L 01/30/22 08:00 Pulse 96 01/30/22 08:00 Resp 18 01/30/22 08:00 BP 99/75 01/30/22 08:00 Pulse Ox 97 01/30/22 08:00 Intake & Output 01/29/22 01/30/22 01/30/22 18:59 06:59 18:59 Intake Total 170 Output Total 300 Balance -130 Intake: IV 50 Sodium Chloride 0.9% 1, 50 000 ml @ 25 mls/hr IV . Q24H [facility] Rx#:[id number] Oral 120 Output: Urine 300 Other: Voiding Method External Catheter Bedside Commode # Voids 0 1 - Exam GENERAL: The patient is lying in bed and is not in acute distress. NEUROLOGICAL: Higher mental function: The patient is awake, alert, oriented to self. Patient is following simple commands to pontomine. Was not naming objects and was talking non-sense. Upon showing watch she stated hand. Patient has component of expressive and at times wernicke aphasia. Cranial nerves: The pupils are round, equal and reactive to light. Could not assess visual sweeney because of cooperation but seems has right visual field cut. EOM: Is tracking throughout the room. Subtle ?right nasolabial flattening.. No dysarthria. Motor: The strength is hard to assess individual muscles but right side seems weaker compared to left side but is able to lift above gravity and no drift. Normal tone and bulk. Sensory: Could not assess Cerebellar: Could not assess. WORK-UP: CT of the head was done around 5 inch a.m. and it's reported as left temporal lobe infarct without change compared to yesterday. Old right inferior posterior temporal lobe small infarct or arachnoid cyst without change. No evidence of a new abnormality compared to yesterday. I personally reviewed that a CT of the head there is no acute ischemic stroke and there is no at [place] hemorrhage at. I do agree the patient does have left temporal stroke by also feels she also has left parietal and is seems subacute to chronic and she has an old right inferior posterior temporal stroke. MRI of the brain without was performed on 01/27/2022 and was reported as large subacute infarct in the left temporal lobe at. Old infarct at the inferior surface of the medial right temporal lobe. Increased signal in the brainstem suggestive of microvascular ischemia or demyelinating disease at the pontine level. Brain not change compared to a CT yesterday. I personally reviewed the MRI and the patient has a subacute ischemic stroke over the left temporal parietal region and has an old over the right temporal region. CTA of head and neck showed an abrupt cutoff of the left M2 segment of the MCA consistent with occlusion. No evidence of dissection of the cervical internal carotid arteries or vertebral arteries or any evidence of significant stenosis at the carotid bifurcations. No evidence of intracranial aneurysm. Redemonstration of encephalomalacia of remote right temporal lobe injury and acute/subacute CVA of the left frontal parietal extending to the left temporal lobe. Routine EEG on 01/28/2022 is abnormal. The slowing is consistent with the patient history of strokes. Otherwise the background is normal and there is no epileptiform discharges or seizure on the EEG. Patient's 2-D echo revealed atrial fibrillation, left ventricle is mildly dilated. Mild concentric LVH. Severe global hypokinesis of left ventricle. Left ventricle systolic function is severely impaired with EF between 25-30%. Left atrium is severely dilated. Right atrium is moderately dilated. Possible thrombus in the left ventricular apex. Fasting a.m. lipid panel with cholesterol 166, LDL 106, HDL 48 and triglycerides 59. Hemoglobin A1c 6.0. TSH is <0.015, free T4 is > 6.99.---Free T4: 4.23 - Labs CBC & Chem 7: 01/30/22 05:50 01/30/22 05:50 Labs: Abnormal Lab Results - Last 24 Hours (Table) 01/29/22 01/29/22 01/30/22 Range/Units 12:02 16:49 05:50 WBC 14.2 H (3.8-10.6) k/uL RBC 6.50 H (3.80-5.40) m/uL Hgb 17.3 H (11.4-16.0) gm/dL Hct 56.5 H (34.0-46.0) % MCHC 30.7 L (31.0-37.0) g/dL Neutrophils # 11.6 H (1.3-7.7) k/uL BUN (7-17) mg/dL Glucose (74-99) mg/dL POC Glucose (mg/dL) 120 H 152 H (75-99) mg/dL Free T4 (0.78-2.19) ng/dL 01/30/22 01/30/22 Range/Units 05:50 06:02 WBC (3.8-10.6) k/uL RBC (3.80-5.40) m/uL Hgb (11.4-16.0) gm/dL Hct (34.0-46.0) % MCHC (31.0-37.0) g/dL Neutrophils # (1.3-7.7) k/uL BUN 35 H (7-17) mg/dL Glucose 121 H (74-99) mg/dL POC Glucose (mg/dL) 113 H (75-99) mg/dL Free T4 4.23 H (0.78-2.19) ng/dL Assessment and Plan Assessment: * Acute ischemic to subacute stroke, multifocal region (left temporal/parietal and old on right temporal per MRI), most likely related to cardioembolism. Patient has a component of expressive and wernicke aphasia, right homonymous hemianopia, right mild hemiparesis. * Reported Fluctuation of right sided weakness: Rule out seizure. * New onset atrial fibrillation with rapid ventricular rate--on heparin drip * Possible left ventricular thrombus--on heparin drip * Acute systolic heart failure, EF 25-30%. * Hyperthyroidism and appears thyrotoxicosis, newly diagnosed. * Abnormal hepatic enzymes. * Hypertension Plan: * The patient is currently on Eliquis 5mg bid for possible LV thrombus and A-fib . On Lipitor 20mg qhs. * MRI of the brain without was performed on 01/27/2022 and was reported as large subacute infarct in the left temporal lobe at. Old infarct at the inferior surface of the medial right temporal lobe. Increased signal in the brainstem suggestive of microvascular ischemia or demyelinating disease at the pontine level. Brain not change compared to a CT yesterday. I personally reviewed the MRI and the patient has a subacute ischemic stroke over the left temporal parietal region and has an old over the right temporal region. * Routine EEG on 01/28/2022 is abnormal. The slowing is consistent with the patient history of strokes. Otherwise the background is normal and there is no epileptiform discharges or seizure on the EEG. * If patient has altered mentation down the line recommend prolonged EEG to rule out seizure (especially since stroke can increase risk of seizure). Currently it is felt there is component of encephalopathy due to medication effect (steroids). * Continue neuro checks * Continue cardiac monitoring. * Cardiology team is on board. * PT, OT and FARO DEALER are on board. * Will defer the rest of medical management to the primary team and ICU team. * For DVT prophylaxis: on Heparin drip. The plan is discussed with the primary team and her nurse. Orville Monahan M.D. Neuro-Hospitalist. Time with Patient: Less than 30
--- NOTE | 2022-01-30 10:28 | P.PN ---
Subjective Progress Note Date: 01/30/22 Spoke with endocrinology, patient had significant improvement and free T4 over the last 24 hours, down to 4.23. At this point, we can stop the steroids. Per endocrinology, patient is stable from their perspective to be discharged on the same dose of methimazole with endocrinology follow-up. Patient did have a mild increase in white blood cell count with slightly elevated BUN, we'll continue to monitor for more day. Gen: awake, alert HEENT: normocephalic, atraumatic, good hearing acuity, moist mucous membranes Resp: good air exchange, breathing comfortably with no accessory muscle use CVS: good distal perfusion x 4, GI: soft, NTTP, ND : no SPT, no CVAT, hernandez catheter not present MSK: no pitting edema, no clubbing Neuro: non-focal, moving all extremities with 5 out of 5 motor strength, no r eported loss of sensation to light touch, expressive aphasia, mild right-sided chela-neglect Psych: cooperative, euthymic mood Assessment: Acute embolic stroke Hypertensive urgency Thyrotoxicosis Acute Systolic Heart Failure, EF 25-30% LV Thrombus Congestive Hepatopathy Paroxysmal atrial fibrillation with rapid ventricular response Plan: -Admit to inpatient, telemetry -Cardiology consult -Neurology consult -discontinued antiplatlet bc no evidence of CAD, PAD, CVD (embolic origin only) -started heparin gtt given thrombus, transitioned to eliquis -Continued statin, decreased to 20mg given good lipid profile -PT/OT, appreciate recs -Speech therapy, appreciate recs -Started hydrochlorothiazide, now d/c'd -Lipid panel = TC/HDL/LDL - 166/48/106 - A1c = 6.0 -TSH with reflex to free T4 daily - 01/27 - TSH/FT4 = ?/6.43 -Echocardiogram with global EF reduction and hypokinesis to 25-30%, LV thrombus, RVE -MRI of the brain, right temporal stroke, left temporal stroke, albertina ischemia -methimazole, propanolol per cardiology, hydrocortisone decreased to 50mg IV q8h due to paranoia/confusion -iodine drops -lisinopril, aldactone -remote endo consultation from 01/29: same dose tapazole, iodine gtt sublingual through today, daily FT4; continue hydrocortisone until FT4 < 4, but decrease to 50 IV q8h Patient is a full code DVT prophylaxis with eliquis Objective - Vital Signs Vital signs: Vital Signs Temp 97.5 F L 01/30/22 08:00 Pulse 96 01/30/22 08:00 Resp 18 01/30/22 08:00 BP 99/75 01/30/22 08:00 Pulse Ox 97 01/30/22 08:00 Intake & Output 01/29/22 01/30/22 01/30/22 18:59 06:59 18:59 Intake Total 170 Output Total 300 Balance -130 Intake: IV 50 Sodium Chloride 0.9% 1, 50 000 ml @ 25 mls/hr IV . Q24H [facility] Rx#:[id number] Oral 120 Output: Urine 300 Other: Voiding Method External Catheter Bedside Commode Bedside Commode # Voids 0 1 - Labs CBC & Chem 7: 01/30/22 05:50 01/30/22 05:50 Labs: Abnormal Lab Results - Last 24 Hours (Table) 01/29/22 01/29/22 01/30/22 Range/Units 12:02 16:49 05:50 WBC 14.2 H (3.8-10.6) k/uL RBC 6.50 H (3.80-5.40) m/uL Hgb 17.3 H (11.4-16.0) gm/dL Hct 56.5 H (34.0-46.0) % MCHC 30.7 L (31.0-37.0) g/dL Neutrophils # 11.6 H (1.3-7.7) k/uL BUN (7-17) mg/dL Glucose (74-99) mg/dL POC Glucose (mg/dL) 120 H 152 H (75-99) mg/dL Free T4 (0.78-2.19) ng/dL 01/30/22 01/30/22 Range/Units 05:50 06:02 WBC (3.8-10.6) k/uL RBC (3.80-5.40) m/uL Hgb (11.4-16.0) gm/dL Hct (34.0-46.0) % MCHC (31.0-37.0) g/dL Neutrophils # (1.3-7.7) k/uL BUN 35 H (7-17) mg/dL Glucose 121 H (74-99) mg/dL POC Glucose (mg/dL) 113 H (75-99) mg/dL Free T4 4.23 H (0.78-2.19) ng/dL
--- NOTE | 2022-01-30 10:51 | P.PN ---
Subjective Progress Note Date: 01/30/22 This is a 52-year-old female, no previous medical history . Patient was brought into the ER yesterday morning around 10:16 AM with relatively acute onset of altered mental status and speech difficulty. The patient herself is a very poor historian however her volunteered most of the information. Apparently she was in her normal state until and he was out of town, patient suddenly stopped next thing him, and he was in a trip to [place]. Last text from the to the was around 11:44 AM on . Patient came back home on Thursday at 5 PM, and he clearly noticed right away that his was disoriented, confused, otherwise she was physically fine. Patient was complaini ng at the time of mild headache. The did not think much of it until the following day noticed that the patient remained about the same and she was brought into the ER. Patient was brought in around and a.m. on Thursday, and she was noted to have elevated blood pressure of 181/144. She was also noted to have elevated T4 and low TSH. And she was in atrial fibrillation with RVR. CT of the head showed subacute CVA of the left frontal parietal region extending into the left temporal lobe. Patient was admitted, she was seen by urology on consultation, and CT angiogram of the head and neck showed abrupt cutoff of the left M2 segment of the middle cerebral artery consistent with occlusion. Echocardiogram showed left ventricular thrombus patient was admitted, started on heparin, and this consult was initiated. Last night I was made aware of this patient, and I'll arrange for the patient to be admitted to the ICU for close monitoring. In the meantime I believe the patient is in the process of being transferred to [facility]. For her hyperthyroidism, patient was started on Tapazole. During my evaluation, the patient was clearly confused, she had no idea where she was, she had some difficulty with the speech, and she clearly has impaired and judgment. He knew however the name of her she did not know the name of the present or the city she lives in. Echocardiogram also showed impaired systolic function with ejection fraction of 25-30%. Patient is now on low intensity heparin. And she is also on aspirin. Being followed closely by neurology and by cardiology on the case. MRI of the brain is scheduled. The patient is seen today 01/27/2022 in follow-up in the intensive care unit. She is currently awake and alert. She is still somewhat restless and moving about in bed. Moving all fours. Speech is somewhat garbled. Follow-up computed tomography scan of the brain last evening revealed left temporal lobe infarct without change. Arachnoid cyst or encephalomalacia at the base of the right temporal lobe without change. No hemorrhage. White count 6.7. Hemoglobin 17.0. Sodium 136. Potassium 3.2. BUN 24. Creatinine 0.65. Free T4 6 0.43. ProBNP 950. Blood glucose 127. She remains afebrile. Maintaining O2 saturations in the 90s on room air. Hemodynamically stable. Heart rate in the 70s. Remains in atrial fibrillation. Echocardiogram revealed severely impaired left ventricular systolic function with ejection fraction 25-30%. Severe global hypokinesia. Possible thrombus in the LV apex. She remains on a heparin drip. 0.9 normal saline at KVO. She is continued on Tapazole and Solu- Cortef. The patient is seen today 01/28/2022 in follow-up in the intensive care unit. She is currently resting comfortably in bed. Awake and alert. She had been having issues with waxing and waning mentation. Another urgent computed tomography scan of the brain was performed about 5:00 this morning. Continues to show left femoral lobe infarct without change compared to previous. Old right impaired posterior temporal lobe small in 4 or arachnoid cysts unchanged. There were no new abnormalities compared to yesterday. MRI of the brain revealed a large subacute infarct in the left temporal lobe. Old infarct in the anterior surface of the medial right temporal lobe. Increased signal in the brainstem suggestive of microvascular ischemia or demyelinating disease at the albertina level. Brain did not change compared to the previous CAT scan. EEG is pending. This morning she is somewhat slow to respond. Speech somewhat gar bled. Still some weakness in the right upper extremity. Moving bilateral lower extremities. White count 6.1. Hemoglobin 17.5. Platelets 181. Sodium 137. Potassium 3.2. BUN 38. Creatinine 0.98. Free T4 5 0.89. Blood glucose 146. She remains on a heparin drip. Normal saline at 10 mL per hour. She remains in atrial fibrillation. She is on room air with O2 saturations in the 90s. She r emains on Solu-Cortef, Tapazole, Lipitor, aspirin and Aldactone. Currently in a -1.5 L balance. The patient is seen today 01/29/2022 in follow-up in the intensive care unit. She is currently resting comfortably in bed. Awake and alert in no acute distress. She did get herself out of bed and was found sitting on the floor earlier this morning. She is still somewhat slow to respond. EEG revealed slowing consistent with the patient's history of strokes. Otherwise the background is normal and there is no epileptiform discharges or seizure on the EEG. white count 7.8. Hemoglobin 17.8. Sodium 138. Potassium 3.5. Bicarb 26. BUN 39. Creatinine 0.75. Free T4 5.52. She remains on Solu-Cortef, Tapazole. Currently on a heparin drip and the plan is to be initiated on Eliquis. The patient is seen today 01/30/2022 in follow-up in the intensive care unit. She is currently sitting up in a chair at the bedside. at her side. She is awake and alert in no acute distress. She is maintaining O2 saturations in the 90s on room air. No IV fluids running. She is still having issues with expressive aphasia. Still with some right-sided weakness. She does remain in atrial fibrillation but a controlled response currently. White count 14.2. Hemoglobin 17.3. Sodium 138. Potassium 3.5. BUN 35. Creatinine 0.70. Free T4 4 0.23. Blood glucose 121. Currently at 3 S. overflow. Objective - Vital Signs Vital signs: Vital Signs Temp 97.5 F L 01/30/22 08:00 Pulse 96 01/30/22 08:00 Resp 18 01/30/22 08:00 BP 99/75 01/30/22 08:00 Pulse Ox 97 01/30/22 08:00 Intake & Output 01/29/22 01/30/22 01/30/22 18:59 06:59 18:59 Intake Total 170 Output Total 300 Balance -130 Intake: IV 50 Sodium Chloride 0.9% 1, 50 000 ml @ 25 mls/hr IV . Q24H [facility] Rx#:[id number] Oral 120 Output: Urine 300 Other: Voiding Method External Catheter Bedside Commode Bedside Commode # Voids 0 1 - Exam GENERAL EXAM: Alert, 57-year-old female patient, on room air, still with some expressive aphasia, weakness of the right upper extremity, comfortable in no apparent distress. HEAD: Normocephalic. EYES: Normal reaction of pupils, equal size. NOSE: Clear with pink turbinates. THROAT: No erythema or exudates. NECK: No masses, no JVD. CHEST: No chest wall deformity. LUNGS: Equal air entry with no crackles, wheeze, rhonchi or dullness. CVS: S1 and S2 normal with an audible murmur, irregular rhythm. ABDOMEN: No hepatosplenomegaly, normal bowel sounds, no guarding or rigidity. SPINE: No scoliosis or deformity SKIN: No rashes CENTRAL NERVOUS SYSTEM: Still with some expressive aphasia, slow to respond, tone is normal in all 4 extremities. EXTREMITIES: Weakness of the right upper extremity. There is no peripheral edema. No clubbing, no cyanosis. Peripheral pulses are intact. - Labs CBC & Chem 7: 01/30/22 05:50 01/30/22 05:50 Labs: Abnormal Lab Results - Last 24 Hours (Table) 01/29/22 01/29/22 01/30/22 Range/Units 12:02 16:49 05:50 WBC 14.2 H (3.8-10.6) k/uL RBC 6.50 H (3.80-5.40) m/uL Hgb 17.3 H (11.4-16.0) gm/dL Hct 56.5 H (34.0-46.0) % MCHC 30.7 L (31.0-37.0) g/dL Neutrophils # 11.6 H (1.3-7.7) k/uL BUN (7-17) mg/dL Glucose (74-99) mg/dL POC Glucose (mg/dL) 120 H 152 H (75-99) mg/dL Free T4 (0.78-2.19) ng/dL 01/30/22 01/30/22 Range/Units 05:50 06:02 WBC (3.8-10.6) k/uL RBC (3.80-5.40) m/uL Hgb (11.4-16.0) gm/dL Hct (34.0-46.0) % MCHC (31.0-37.0) g/dL Neutrophils # (1.3-7.7) k/uL BUN 35 H (7-17) mg/dL Glucose 121 H (74-99) mg/dL POC Glucose (mg/dL) 113 H (75-99) mg/dL Free T4 4.23 H (0.78-2.19) ng/dL Assessment and Plan Assessment: 1 Acute ischemic stroke, possibly related to cardiac embolism or could be related to thromboembolic disease involving the MCA. Follow-up computed tomography scan of the brain revealed a left temporal lobe infarct without change. Arachnoid cyst or encephalomalacia at the base of the right temporal lobe without change. No hemorrhage. MRI reveals a large subacute infarct in the left temporal lobe. Old infarct at the anterior surface of the medial right temporal lobe. Increased signal in the brainstem suggestive of microvascular ischemia or demyelinating disease at the albertina level. Brain not changed compared to previous computed tomography scan. EEG revealed slowing with evidence of strokes but no epileptic discharges. 2 New onset atrial fibrillation with RVR, continued on Eliquis. 3 Mild systolic congestive heart failure, the patient found to have severe left ventricular systolic dysfunction with global hypokinesia ejection fraction 25- 30% 4 Possible left ventricular apical thrombus 5 New onset hyperthyroidism, suspected thyrotoxicosis. Improved on Tapazole 6 Benign essential hypertension 7 Elevated liver enzymes could be related to her congestive heart failure/congestive hepatopathy Plan: The patient was seen and evaluated Stable and on room air Remains in atrial fibrillation but controlled rate Transitioned to Eliquis Remains on Tapazole and free T4 improving ST/PT/OT consulted 3 S. overflow We will see as needed I have personally seen and examined the patient, performed the documentation and the assessment and plan as written. Number of minutes spent on the visit: 10.
[2022-01-30 11:55] LABS: Glucose,Whole Blood 118 mg/dL (75-99)
[2022-01-30 16:40] LABS: Glucose,Whole Blood 125 mg/dL (75-99)
[2022-01-30 20:01] LABS: Glucose,Whole Blood 144 mg/dL (75-99)
[2022-01-30] MEDS: ATORVASTATIN 20 MG TAB PO SCH (21:31)
[2022-01-31] MEDS: methIMAzole 5 MG TAB PO SCH ×3 (01:12→15:41)
[2022-01-31 06:17] LABS: Glucose,Whole Blood 99 mg/dL (75-99)
[2022-01-31] MEDS: INSULIN ASPART (NovoLOG) 100 UNIT/ML VIAL SQ SCH ×2 (06:30→12:24)
[2022-01-31 09:58] VITALS: RESP 17
[2022-01-31] MEDS: APIXABAN 5 MG TAB PO SCH (10:02)
[2022-01-31] MEDS: SPIRONOLACTONE 25 MG TAB PO SCH (10:02)
[2022-01-31] MEDS: DOCUSATE 100 MG CAP PO SCH (10:03)
[2022-01-31] MEDS: PROPRANOLOL 20 MG TAB PO SCH ×2 (10:03→15:37)
[2022-01-31 10:35] VITALS: BMI 28.1
[2022-01-31 11:59] LABS: Glucose,Whole Blood 117 mg/dL (75-99)
--- NOTE | 2022-01-31 13:20 | P.PN ---
Subjective Progress Note Date: 01/31/22 HISTORY OF PRESENT ILLNESS: The patient is a 56-year-old female who has not seen a physician in over 30 years who is brought into the emergency room with confusion. The history is obtained from her . Apparently he was out of town on business last week and when he called her and the texted her on she did not answer. He returned to town on Thursday and she was somewhat confused and that persisted today. She is moving, he did not notice a slurred speech but she appears to be unable to answer questions. She came into the emergency room and was noted to be in atrial fibrillation of unknown duration. She recalls that she went out for dinner on Thursday and she did not like the food but she cannot remember what happened on or yesterday. She denies any palpitations, chest discomfort or dyspnea. She has no prior history of PND, orthopnea or peripheral edema. She is usually active physically, walks the dog without symptoms. She has no history of documented diabetes, hypertension or hyperlipidemia but as noted she has not seen a physician in a long time. She takes no medication at home. She drinks caffeine occasionally and alcohol on a social basis. January 26: The patient has been transferred to the ICU. She remains awake but confused. In atrial fibrillation with controlled ventricular response. Her echocardiogram yesterday showed severe cardiomyopathy with possible apical thrombus. She had moderate mitral and tricuspid regurgitation. She continues to be on IV Cardizem and was started on IV heparin yesterday. There is evidence of severe hyperthyroidism that could be the cause of her atrial fibrillation. 01/27 Patient seen and examined. Patient did have a further episode of confusion however this morning feeling somewhat better and believes aphasia somewhat improving. Heart rates have been better controlled mainly 90s to 110s still in A. fib. She denies any chest pain or pressure, no shortness breath. Patient has been started on methimazole as well as site Cortef for hyperthyroidism. 01/28 Patient seen and examined. Patient somewhat anxious and still remains somewhat confused stating she ate dinner today however answering some questions appropriately. Denies any chest pain or pressure. No shortness breath. Heart rates have been in the 90s to 110s. T4 noted to be mildly improved. Urine output has been marginal. Patient eating approximate 75% of her meal. 01/29 Patient seen and examined. Patient states she is feeling well. Able to stand up with assist area heart rates mainly in the 90s and she was changed from metoprolol to propranolol to help with reduction of conversion of T4 to T3. T4 5.5 today. 01/30 Patient seen and examined. Free T4 down to 4.2 today. A. fib with mostly heart rates in the 80s to low 100s. She denies any chest pain or pressure. She does not have much of an appetite. Denies any shortness breath. States she is having back pain apparently from sitting in bed. Still with similar confusion. 01/31/2022 Patient examined this morning at the bedside. Patient denies chest pain or pressure. Denies SOB. Telemetry reveals atrial fibrillation with controlled ventricular rates. Patient is going to be discharged today to inpatient rehab. PHYSICAL EXAM: VITAL SIGNS: Reviewed. GENERAL: Well-developed in no acute distress. NECK: Supple. No JVD or thyromegaly LUNGS: Respirations even and unlabored. Lungs essentially clear to auscultation bilaterally. HEART: Irregular rate and rhythm. S1 and S2 heard. EXTREMITIES: Normal range of motion. No clubbing or cyanosis. Peripheral pulses intact. No lower extremity edema ASSESSMENT: 1. CVA with abnormal CT angiogram 2. Atrial fibrillation of unknown duration with mild RVR exacerbated by hyperthyroid state, appears persistent 3. Cardiomyopathy, severe of unknown duration or etiology with possible apical thrombus. Likely tachycardia induced 4. Hyperthyroidism 5. Confusion related to the stroke PLAN: Continue current cardiac medications Patient is being discharged today to inpatient rehab We will sign off. Please reconsult if needed. Nurse practitioner note has been reviewed by physician. Signing provider agrees with the documented findings, assessment, and plan of care. Objective - Vital Signs Vital signs: Vital Signs Temp 98.4 F 01/31/22 08:00 Pulse 66 01/31/22 08:00 Resp 17 01/31/22 08:00 BP 134/90 01/31/22 08:00 Pulse Ox 96 01/31/22 08:00 Intake & Output 01/30/22 01/31/22 01/31/22 18:59 06:59 18:59 Intake Total 360 Output Total 200 Balance -200 360 Weight 81.5 kg Intake: Oral 360 Output: Urine 200 Other: Voiding Method Bedside Commode Bedside Commode # Voids 2 2 - Labs CBC & Chem 7: 01/30/22 05:50 01/30/22 05:50 Labs: Abnormal Lab Results - Last 24 Hours (Table) 01/30/22 01/30/22 01/31/22 Range/Units 16:38 19:59 08:00 POC Glucose (mg/dL) 125 H 144 H (75-99) mg/dL Free T4 4.51 H (0.78-2.19) ng/dL 01/31/22 Range/Units 11:46 POC Glucose (mg/dL) 117 H (75-99) mg/dL Free T4 (0.78-2.19) ng/dL
[2022-01-31] MEDS ORDERED: bisacodyL 10 MG SUPP RECTAL STA (13:34)
--- NOTE | 2022-01-31 14:30 | P.DS ---
Providers Date of admission: 01/25/22 12:12 Expected date of discharge: 01/31/22 Attending physician: Sagar Denise MD Consults: 01/25/22 12:08 Consult Physician Routine Consulting Provider: Lexii Quezada Consult Reason/Comments: CVA Do you want consulting provider notified?: Yes Consult Physician Routine Consulting Provider: Geremias Gold Consult Reason/Comments: new onset afib Do you want consulting provider notified?: Yes Consult Physician Urgent Consulting Provider: Lexii Quezada Consult Reason/Comments: Acute embolic stroke Do you want consulting provider notified?: Yes 01/25/22 17:22 Consult Physician Urgent Consulting Provider: Ruth Vega Consult Reason/Comments: icu management Do you want consulting provider notified?: Yes 01/27/22 14:02 Consult Physician Routine Consulting Provider: Nima Avila Consult Reason/Comments: IPR Do you want consulting provider notified?: Yes Primary care physician: Stated None Hospital Course: Acute embolic stroke Hypertensive urgency Thyrotoxicosis Acute Systolic Heart Failure, EF 25-30% LV Thrombus Congestive Hepatopathy Paroxysmal atrial fibrillation with rapid ventricular response 56-year-old woman with no documented past medical history, though she has not seen a physician for the last 30 years, never smoker, no family history of heart attack or stroke presented to the emergency department with 2-3 days of increased confusion, expressive aphasia. In the emergency room, patient is afebrile, 166/128, heart rate is 126, 98% on room air. CBC is unremarkable. Chemistries are remarkable for mild non-anion gap acidosis, elevated BUN to 21. She also has mildly elevated bilirubin to 1.7, AST/ALT 47/40, alkaline phosphatase is 189. Initial troponin is negative. Coagulation profile is normal. Initial brain CT showed acute/subacute CVA of the left frontal parietal region extending into the left temporal lobe as well as encephalomalacia of the right inferior temporal lobe from remote injury. CT angiography of the head and neck shows abrupt cut off of the left M2 segment of the MCA consistent with occlusion with no evidence of dissection in the cervical internal carotid arteries and vertebral arteries. Patient's neck showed EKG demonstrated atrial fibrillation with rapid ventricular response to 175. Chest x-ray demonstrates cardiomegaly with mild venous congestion. These findings were discussed with Dr. Nash, neuro interventionalist, who recommended medical management considering the duration of symptoms. He also recommended holding off on anticoagulation for at least 48 hours if not longer. In the interim, patient was given aspirin, started on statin. Patient did pass bedside swallow. Patient was admitted to the hospitalist service for further management, neurology and cardiology were consulted for further recommendations. However, shortly after being admitted to the floor, her TSH/FT4 returned as < 0.015/>6.99, and her echo came back showing EF 25-30%, global hypokinesis, and LV thrombus. Pt was transferred to the ICU for thyroid storm, and treated with methimazole, propanolol, steroids, and started on heparin gtt. Fortunately, no complications of hemorrhagic conversion arose from blood thinner, and she was transitioned to eliquis by day of discharge. She was started on GDMT for her reduced EF: lisinopril, spironolactone, metoprolol. For her thyroid, we treated her with remote consultation with endocrinology whos help was greatly appreciated. Her FT4 came down to baldomero of 4.23. She was discharged on methimazole with endocrine follow up. She was seen by PT/OT/ST, and they recommended IPR. Pt qualified for this and was discharged to [facility]. She will need cardiology, neurology follow up while in IPR, and will require endocrinology referral to Dr. Erica Miranda upon discharge. She will also need to establish care with a primary care physician. [facility]. She will need FT4 follow up 3x/week, starting Saturday 02/03. I spent 38 minutes coordinating this complex discharge Gen: awake, alert HEENT: normocephalic, atraumatic, good hearing acuity, moist mucous membranes Resp: good air exchange, breathing comfortably with no accessory muscle use CVS: good distal perfusion x 4, GI: soft, NTTP, ND : no SPT, no CVAT, hernandze catheter not present MSK: no pitting edema, no clubbing Neuro: non-focal, moving all extremities with 5 out of 5 motor strength, no reported loss of sensation to light touch, expressive aphasia, mild right-sided chela-neglect Psych: cooperative, euthymic mood Patient Condition at Discharge: Good Plan - Discharge Summary Discharge Rx Participant: No New Discharge Prescriptions: New Metoprolol Tartrate [Lopressor] 25 mg PO BID #60 tablet methIMAzole [Tapazole] 20 mg PO Q8HR #360 tab lisinopriL [Zestril] 2.5 mg PO BID #30 tab Spironolactone [Aldactone] 25 mg PO DAILY #30 tab Docusate [Colace] 100 mg PO BID cap Apixaban [Eliquis] 5 mg PO BID #60 tab Atorvastatin [Lipitor] 20 mg PO HS #30 tab Acetaminophen Tab [Tylenol] 650 mg PO Q6HR PRN tab PRN Reason: Fever And/ Or Pain Discharge Medication List Acetaminophen Tab [Tylenol] 650 mg PO Q6HR PRN tab 01/31/22 [Rx] Apixaban [Eliquis] 5 mg PO BID #60 tab 01/31/22 [Rx] Atorvastatin [Lipitor] 20 mg PO HS #30 tab 01/31/22 [Rx] Docusate [Colace] 100 mg PO BID cap 01/31/22 [Rx] Metoprolol Tartrate [Lopressor] 25 mg PO BID #60 tablet 01/31/22 [Rx] Spironolactone [Aldactone] 25 mg PO DAILY #30 tab 01/31/22 [Rx] lisinopriL [Zestril] 2.5 mg PO BID #30 tab 01/31/22 [Rx] methIMAzole [Tapazole] 20 mg PO Q8HR #360 tab 01/31/22 [Rx] Follow up Appointment(s)/Referral(s): Owen Mace DO [STAFF PHYSICIAN] - 1 Week None,Stated [Primary Care Provider] - 1-2 days [facility] [NON-STAFF] - 1 Week Sanijv Howard DO [STAFF PHYSICIAN] - 1 Week Erica Miranda MD [STAFF PHYSICIAN] - 1 Week Discharge Disposition: TRANSFER TO SNF/ECF
--- NOTE | 2022-01-31 15:48 | P.PN ---
Subjective Progress Note Date: 01/31/22 Patient is seen at bedside and feels about the same. She is sitting on chair near her bed. Objective - Vital Signs Vital signs: Vital Signs Temp 98.4 F 01/31/22 12:00 Pulse 66 01/31/22 14:00 Resp 17 01/31/22 14:00 BP 116/82 01/31/22 12:00 Pulse Ox 99 01/31/22 12:00 Intake & Output 01/30/22 01/31/22 01/31/22 18:59 06:59 18:59 Intake Total 360 Output Total 200 Balance -200 360 Weight 81.5 kg Intake: Oral 360 Output: Urine 200 Other: Voiding Method Bedside Commode Bedside Commode Bedside Commode # Voids 2 2 - Exam GENERAL: The patient is lying in bed and is not in acute distress. NEUROLOGICAL: Higher mental function: The patient is awake, alert, oriented to self. Patient is following simple commands to pontomine. Was not naming objects and was talking non-sense. Upon showing watch she stated hand. Patient has component of expressive and at times wernicke aphasia. Cranial nerves: The pupils are round, equal and reactive to light. Could not assess visual sweeney because of cooperation but seems has right visual field cut. EOM: Is tracking throughout the room. Subtle right nasolabial flattening.. No dysarthria. Motor: The strength is hard to assess individual muscles but right side seems weaker compared to left side but is able to lift above gravity and no drift. Normal tone and bulk. Sensory: Could not assess Cerebellar: Could not assess. WORK-UP: CT of the head was done around 5 inch a.m. and it's reported as left temporal lobe infarct without change compared to yesterday. Old right inferior posterior temporal lobe small infarct or arachnoid cyst without change. No evidence of a new abnormality compared to yesterday. I personally reviewed that a CT of the head there is no acute ischemic stroke and there is no at [place] hemorrhage at. I do agree the patient does have left temporal stroke by also feels she also has left parietal and is seems subacute to chronic and she has an old right inferior posterior temporal stroke. MRI of the brain without was performed on 01/27/2022 and was reported as large subacute infarct in the left temporal lobe at. Old infarct at the inferior surface of the medial right temporal lobe. Increased signal in the brainstem suggestive of microvascular ischemia or demyelinating disease at the pontine level. Brain not change compared to a CT yesterday. I personally reviewed the MRI and the patient has a subacute ischemic stroke over the left temporal parietal region and has an old over the right temporal region. CTA of head and neck showed an abrupt cutoff of the left M2 segment of the MCA consistent with occlusion. No evidence of dissection of the cervical internal carotid arteries or vertebral arteries or any evidence of significant stenosis at the carotid bifurcations. No evidence of intracranial aneurysm. Redemonstration of encephalomalacia of remote right temporal lobe injury and acute/subacute CVA of the left frontal parietal extending to the left temporal lobe. Routine EEG on 01/28/2022 is abnormal. The slowing is consistent with the patient history of strokes. Otherwise the background is normal and there is no epileptiform discharges or seizure on the EEG. Patient's 2-D echo revealed atrial fibrillation, left ventricle is mildly dilated. Mild concentric LVH. Severe global hypokinesis of left ventricle. Left ventricle systolic function is severely impaired with EF between 25-30%. Left atrium is severely dilated. Right atrium is moderately dilated. Possible thrombus in the left ventricular apex. Fasting a.m. lipid panel with cholesterol 166, LDL 106, HDL 48 and triglycerides 59. Hemoglobin A1c 6.0. TSH is <0.015, free T4 is > 6.99.---Free T4: 4.23 - Labs CBC & Chem 7: 01/30/22 05:50 01/30/22 05:50 Labs: Abnormal Lab Results - Last 24 Hours (Table) 01/30/22 01/30/22 01/31/22 Range/Units 16:38 19:59 08:00 POC Glucose (mg/dL) 125 H 144 H (75-99) mg/dL Free T4 4.51 H (0.78-2.19) ng/dL 01/31/22 Range/Units 11:46 POC Glucose (mg/dL) 117 H (75-99) mg/dL Free T4 (0.78-2.19) ng/dL Assessment and Plan Assessment: * Acute ischemic to subacute stroke, multifocal region (left temporal/parietal and old on right temporal per MRI), most likely related to cardioembolism. Patient has a component of expressive and wernicke aphasia, right homonymous hemianopia, right mild hemiparesis. * Reported Fluctuation of right sided weakness: Rule out seizure. * New onset atrial fibrillation with rapid ventricular rate--on heparin drip * Possible left ventricular thrombus--on heparin drip * Acute systolic heart failure, EF 25-30%. * Hyperthyroidism and appears thyrotoxicosis, newly diagnosed. * Abnormal hepatic enzymes. * Hypertension Plan: * The patient is currently on Eliquis 5mg bid for possible LV thrombus and A-fib . On Lipitor 20mg qhs. * MRI of the brain without was performed on 01/27/2022 and was reported as large subacute infarct in the left temporal lobe at. Old infarct at the inferior surface of the medial right temporal lobe. Increased signal in the brainstem suggestive of microvascular ischemia or demyelinating disease at the pontine level. Brain not change compared to a CT yesterday. I personally reviewed the MRI and the patient has a subacute ischemic stroke over the left temporal parietal region and has an old over the right temporal region. * Routine EEG on 01/28/2022 is abnormal. The slowing is consistent with the patient history of strokes. Otherwise the background is normal and there is no epileptiform discharges or seizure on the EEG. * If patient has altered mentation down the line recommend prolonged EEG to rule out seizure (especially since stroke can increase risk of seizure). Currently it is felt there is component of encephalopathy due to medication effect (steroids). * Continue neuro checks * Continue cardiac monitoring. * Cardiology team is on board. * PT, OT and PHYSICAL THERAPY MANAGER are on board. * Will defer the rest of medical management to the primary team and ICU team. * For DVT prophylaxis: on Eliquis. * Upon discharge, recommend the patient to follow-up with neurologist as outpatient within 1-2 weeks. The plan is discussed with her nurse. There is no further neurological work-up. patient is clear from neurological perspective. Orville Monahan M.D. Neuro-Hospitalist. Time with Patient: Less than 30
[2022-01-31 15:54] VITALS: BP 116/79; PULSE 58; TEMP 97.5
== END 2022-01-31 16:18 | DRG 64 ==
LOC: EC 10:13 → 3SCARD 12:12 → 2SICU 18:11 → 3SCARD 01-30 17:15
PROVIDERS: ADMIT Internal Medicine; ATTEND Internal Medicine
DX: I63.40 Cerebral infarction due to embolism of unspecified cerebral artery (principal); E05.91 Thyrotoxicosis, unspecified with thyrotoxic crisis or storm; I50.21 Acute systolic (congestive) heart failure; E87.2 Acidosis; G81.91 Hemiplegia, unspecified affecting right dominant side; I42.9 Cardiomyopathy, unspecified; R41.82 Altered mental status, unspecified; F22 Delusional disorders; H53.461 Homonymous bilateral field defects, right side; G93.89 Other specified disorders of brain; I08.1 Rheumatic disorders of both mitral and tricuspid valves; Z20.822 Contact with and (suspected) exposure to COVID-19; I11.0 Hypertensive heart disease with heart failure; I16.0 Hypertensive urgency; I48.0 Paroxysmal atrial fibrillation; I51.3 Intracardiac thrombosis, not elsewhere classified; K76.1 Chronic passive congestion of liver; K82.4 Cholesterolosis of gallbladder; R47.01 Aphasia; Z79.01 Long term (current) use of anticoagulants; Z79.82 Long term (current) use of aspirin; Z86.73 Personal history of transient ischemic attack (TIA), and cerebral infarction without residual deficits
CPT/HCPCS: 36415; 70450; 70496; 70498; 70551; 71045; 76700; 80048; 80053; 80061; 83036; 83735; 83880; 84439; 84443; 84484; 85025; 85027; 85610; 85730; 87635; 93005; 93306; 95816; 96365; 96366; 99291

== ENCOUNTER 2022-07-08 06:05 | Day surgery (SDC) | payer BC ==
[2022-07-08] MEDS ORDERED: LACTATED RINGERS 1,000 ML IV SCH (06:08)
[2022-07-08] MEDS ORDERED: SODIUM CHLORIDE 0.9% 1,000 ML IV SCH ×2 (06:08→07:45)
[2022-07-08] MEDS ORDERED: SODIUM CHLORIDE 0.9% 500 ML 500 ML IV ONE (06:41)
[2022-07-08 06:43] VITALS: TEMP 97.9
[2022-07-08 07:03] LABS: African American GFR (CKD) >90 (>60 ml/min/1.73 sqM); Anion Gap 10 mmol/L; Blood Urea Nitrogen 20 mg/dL (7-17); Calcium 9.5 mg/dL (8.4-10.2); Carbon Dioxide 24 mmol/L (22-30); Chloride 104 mmol/L (98-107); Glucose 117 mg/dL (74-99); Non-African American GFR(CKD) 83 (>60 ml/min/1.73 sqM); Potassium 4.1 mmol/L (3.5-5.1); Sodium 138 mmol/L (137-145)
[2022-07-08] MEDS ORDERED: LIDOCAINE 2% INJ 20 MG/ML (2 ML VIAL) ONE (07:14)
[2022-07-08] MEDS ORDERED: PROPOFOL 10 MG/ML 20 ML VIAL IV ONE (07:14)
[2022-07-08] MEDS ORDERED: MIDAZOLAM 2 MG/2 ML VIAL IVP ONE ×2 (07:15)
--- NOTE | 2022-07-08 07:41 | P.PCN ---
Date of Procedure: 07/08/22 Description of Procedure: Indication: Atrial fibrillation Procedure Description: After explaining the procedure to the patient, it's risk and complications, blood pressure, heart rate and O2 saturation were monitored. The throat was sprayed with Cetacaine. Patient received sedation per anesthesia department . The probe was introduced into the esophagus without difficulty. Images were obtained. Following that, the probe was removed. There was no immediate complication. Findings: Left atrial size is mildly dilated, left atrial appendage is normal. Left ventricle size and systolic function are normal. The aortic valve, mitral valve and tricuspid valve are normal. Descending thoracic aorta is normal. No pericardial effusion was noted. Contrast bubble study revealed no shunting across the intra-atrial septum Doppler: Pulse wave and color Doppler were obtained, moderate multiple jets of mitral regurgitation with moderate tricuspid regurgitation and mild aortic regurgitation. There was no shunting across the intra-atrial septum Conclusion: 1. Dilated left atrium with normal appearance of the left atrial appendage 2. Normal limits ventricle size and systolic function 3. Moderate mitral and tricuspid regurgitation 4. Mild aortic regurgitation 5. Normal appearance of the descending thoracic aorta
--- NOTE | 2022-07-08 07:42 | P.PCN ---
Date of Procedure: 07/08/22 Description of Procedure: Cardioversion: Indication: Atrial fibrillation Procedure: After explaining the procedure to the patient as well as the risks and the complications, after performing transesophageal echocardiogram and obtaining sedated state, a synchronize biphasic cardioversion using 150 J was performed with pentecostal of normal sinus rhythm, there was no immediate complications.
[2022-07-08 08:15] VITALS: RESP 16
[2022-07-08] MEDS ORDERED: SPIRONOLACTONE 25 MG TAB PO SCH (09:00)
[2022-07-08] MEDS ORDERED: METOPROLOL TARTRATE 25 MG TAB PO SCH (09:00)
[2022-07-08] MEDS ORDERED: APIXABAN 5 MG TAB PO SCH (09:00)
[2022-07-08] MEDS ORDERED: methIMAzole 5 MG TAB PO SCH (09:00)
[2022-07-08 09:06] VITALS: PULSE 58
[2022-07-08 09:20] VITALS: BP 125/74
[2022-07-08] MEDS ORDERED: ATORVASTATIN 20 MG TAB PO SCH (21:00)
== END 2022-07-08 09:27 | disposition home or self-care (01) ==
LOC: CATHCVL 06:05
PROVIDERS: ATTEND Internal Medicine Interventional Cardiology
DX: I48.11 Longstanding persistent atrial fibrillation (principal); I08.3 Combined rheumatic disorders of mitral, aortic and tricuspid valves; I42.8 Other cardiomyopathies; E78.2 Mixed hyperlipidemia; E05.90 Thyrotoxicosis, unspecified without thyrotoxic crisis or storm; Z20.822 Contact with and (suspected) exposure to COVID-19; Z79.899 Other long term (current) drug therapy; Z87.891 Personal history of nicotine dependence; Z79.01 Long term (current) use of anticoagulants
CPT/HCPCS: 93312; 93320; 93005; 93325; 92960; 80048; 87635; J2250; J2704; J2001

== ENCOUNTER 2022-11-13 13:05 | Day surgery (SDC) | payer BC ==
[~2022-11-13 13:05] MED LIST: SODIUM CHLORIDE 0.9% 1,000 ML IV SCH
[2022-11-13 14:24] LABS: Basophils # (A) 0.1 k/uL (0-0.2); Basophils % (A) 1 %; Eosinophils # (A) 0.1 k/uL (0-0.7); Eosinophils % (A) 2 %; HCT 44.5 % (34.0-46.0); HGB 14.6 gm/dL (11.4-16.0); Lymphocytes # (A) 2.3 k/uL (1.0-4.8); Lymphocytes % (A) 34 %; MCH 29.2 pg (25.0-35.0); MCHC 32.8 g/dL (31.0-37.0); MCV 89.1 fL (80.0-100.0); Mean Platelet Volume 8.8; Monocytes # (A) 0.4 k/uL (0-1.0); Monocytes % (A) 6 %; Neutrophils # (A) 3.8 k/uL (1.3-7.7); Neutrophils % (A) 55 %; Platelet Count 235 k/uL (150-450); RBC 4.99 m/uL (3.80-5.40); RDW 12.9 % (11.5-15.5); WBC 6.9 k/uL (3.8-10.6)
[2022-11-13] MEDS ORDERED: MIDAZOLAM 2 MG/2 ML VIAL IV STA (14:24)
[2022-11-13] MEDS ORDERED: ROCURONIUM 10 MG/ML (5 ML VIAL) IV ONE (15:10)
[2022-11-13] MEDS ORDERED: PHENYLEPHRINE-0.9% NACL SYG 1,000 MCG/10 ML SYRINGE ONE (15:10)
[2022-11-13] MEDS ORDERED: MIDAZOLAM 2 MG/2 ML VIAL ONE (15:10)
[2022-11-13] MEDS ORDERED: HEPARIN SODIUM,PORCINE 10,000 UNIT/ML 1 ML VIAL ONE (15:10)
[2022-11-13] MEDS ORDERED: fentaNYL (PF) 50 MCG/ML 2 ML AMP ONE (15:10)
[2022-11-13] MEDS ORDERED: IV FLUID CONTINUATION 900 ML IV ONE (15:12)
--- NOTE | 2022-11-13 15:13 | P.HPCAR ---
History of Present Illness This is Dr. Chung dictating an H/P on this patient The patient was interviewed and examined IMPRESSION / ASSESSMENT: Persistent atrial fibrillation associated with cardio myopathy Failed antiarrhythmic therapy History of CVA Past history of thyrotoxicosis Past history of cardio myopathy of about 27% Moderate MR and moderate TR on EDITH PLAN: A. fib ablation Continue anticoagulation lifelong since the patient's had a CVA HPI Patient remains in atrial fibrillation. She is had a history of CVA as well as current myopathy during atrial fibrillation She is on anticoagulation ROS: No fever chills or rigors, no cough, phlegm or expectoration, no nausea, vomiting or diarrhea, no hematuria, dysuria, no musculoskeletal complaints, no strokes or seizures, no skin lesions. EXAMINATION: On examination blood pressure 150s 9/96. His mercury pulse rate in the 80s and 90s afebrile Breath sounds are clear no rhonchi no crackles Heart sounds S1-S2 are normal no murmurs Extremities warm no edema Soft abdomen nontender REVIEW OF LABS, ECG & MEDICAL DATA White count 6.9 thousand, normal hemoglobin 14.6, platelet count normal 235,000 Physical Exam Vitals: Vital Signs Temp Resp BP Pulse Ox 11/13/22 13:29 97.8 F 20 159/96 97 Intake and Output 11/13/22 11/13/22 11/13/22 06:59 14:59 22:59 Other: Weight 85 kg Past Medical History Past Medical History: CVA/TIA, Hypertension, Memory Impairment, Thyroid Disorder Additional Past Medical History / Comment(s): see [facility] H&P, stroke 01/24/22 cognition and memory issues.has problems writing. ( came in to ER with thyroid storm) sees Dr Hoffmann, now off thyroid med. ankle achiness History of Any Multi-Drug Resistant Organisms: None Reported Past Surgical History: No Surgical Hx Reported Additional Past Surgical History / Comment(s): cardioversion Past Anesthesia/Blood Transfusion Reactions: No Reported Reaction Additional Past Anesthesia/Blood Transfusion Reaction / Comment(s): no blood transfusion Smoking Status: Never smoker - Past Family History Father History Unknown: Yes Additional Family Medical History / Comment(s): pt adopted Mother Family Medical History: Cancer Additional Family Medical History / Comment(s): cancer unknown. pt adopted Physical Examination Vital Signs Temp Resp BP Pulse Ox 11/13/22 13:29 97.8 F 20 159/96 97 Intake and Output 11/13/22 11/13/22 11/13/22 06:59 14:59 22:59 Other: Weight 85 kg Results 11/13/22 13:40 CBC 11/13/22 Range/Units 13:40 WBC 6.9 (3.8-10.6) k/uL RBC 4.99 (3.80-5.40) m/uL Hgb 14.6 (11.4-16.0) gm/dL Hct 44.5 (34.0-46.0) % Plt Count 235 (150-450) k/uL Current Medications Generic Name Dose Route Start Last Admin Trade Name Freq PRN Reason Stop Dose Admin Sodium Chloride 1,000 mls @ 50 mls/hr 11/13/22 06:24 Saline 0.9% IV 12/13/22 06:25 .Q20H KAMILAH Intake and Output 11/13/22 11/13/22 11/13/22 06:59 14:59 22:59 Other: Weight 85 kg Patient Weight 11/14/22 06:59 Weight 85 kg 11/13/22 13:40
[2022-11-13] MEDS ORDERED: LIDOCAINE 1% INJ 10MG/ML (30 ML VIAL-PF) SQ ONE (15:49)
[2022-11-13] MEDS ORDERED: HEPARIN SOD,PORK IN 0.45% NACL 25,000 UNIT in 0.45% NACL 1 250ML.BAG IV ONE (16:15)
[2022-11-13] MEDS ORDERED: IOPAMIDOL-370 100ML BTL INJ ONE (18:03)
[2022-11-13] MEDS ORDERED: LACTATED RINGERS 1,000 ML IV ONE (18:20)
[2022-11-13] MEDS ORDERED: ACETAMINOPHEN TAB 325 MG TAB PO PRN (18:35)
[2022-11-13] MEDS ORDERED: ACETAMINOPHEN IV (For NPO) 1,000 MG in EMPTY BAG 1 BAG IVPB ONE (18:35)
--- NOTE | 2022-11-13 18:45 | P.EPPROC ---
- EP Procedure Note Electrophysiology Procedure Note: PROCEDURE A. fib ablation/PVI and linear ablation of left atrial roof DIAGNOSIS Persistent Atrial fibrillation, symptomatic, refractory to therapy, associated with cardiomyopathy and CVA RESULT No left atrial appendage mass seen on intracardiac echo Successful A. fib ablation/pulmonary vein isolation of all veins using cryo- ablation Thick pulmonary venous pedicles in the left superior and right superior pulmonary veins Complete entrance block in all 4 veins confirmed No evidence for phrenic nerve injury Linear ablation the left atrial roof Esophageal deflection YES , right-sided esophagus Electrical cardioversion with a synchronized shock across the chest YES PROCEDURE DETAILS Patient was brought to the EP lab in a fasting state after obtaining written informed consent. Procedure performed under general anesthesia Esophagus was intubated. Esophageal temperature monitoring with circa catheter. Esophageal deflection with an endoscope to avoid hypothermia of the esophagus. After initial muscle relaxant use, muscle relaxants were not given thereafter in order to assess phrenic nerve during procedure. Patient prepped and draped as per protocol Cryo ablation-set up with standard preparation of the cryoablation tools done. Femoral Venous access obtained on the right and left groins and sheaths placed Diagnostic catheters for the high right atrium, phrenic nerve stimulation and pacing, His bundle, coronary sinus placed Intracardiac echo catheter placed. Long sheath placed in the right atrium Left and right transseptal catheterization performed under intracardiac echo guidance. Intravenous heparin with aCT above 300 Later, catheter positioning and balloon positioning in the left atrium and pulmonary veins, under intracardiac echo guidance Diagnostic EP study with coronary sinus pacing and recording Baseline measurements: Sinus cycle length 1277 ms, SC interval 181 ms, QRS 103 ms, QT 493 ms Age 87 and HV 37 ms Transseptal catheterization performed RA pressure 8/2/5 LA pressure 14/3/9 Transseptal catheterization performed with standard sheath. The cryoablation sheath was then placed with an over the wire exchange without any acute complications. The cryoablation balloon was placed in the office of each pulmonary vein and all 4 pulmonary veins were isolated. IV dye was injected to confirm occlusion. Goal: achieve complete occlusion of the pulmonary vein, achieve -30 degrees C at 30 seconds and achieve -40 degrees C at 60 seconds and a time to effect of less than 60 seconds. If not, the balloon was repositioned to obtain this result After completion of Cryoblation with durations from 180-240 seconds, entrance block was confirmed with the Attain circular catheter in a roving fashion around the antrum of the pulmonary veins Phrenic nerve pacing was performed from the SVC, right innominate vein area and diaphragm voltage was monitored. Diaphragmatic contractions were also monitored manually for strength of contraction. At the end of the procedure the Achieve catheter was once again used to check for entrance block Phrenic nerve stimulation was performed to confirm diaphragmatic stimulation the end of the procedure Linear ablation was performed along the left atrial roof from the left superior to the right superior pulmonary veins. Contiguous carinal lesions were applied for 3 minutes each today template brought band of block The left superior vein had very thick pedicles. It took 130 seconds for complete isolation Following that an additional 2 minutes of Cryoblation was performed for complete isolation This was interrogated the end of the procedure and the vein was isolated The right superior pulmonary vein also had very thick pedicles especially towards the lawrence and the lateral branch of the right superior Despite the 200 and a 3 minute cryoablation with very cold temperatures by keeping the phrenic nerve intact, isolation could not be achieved initially Multiple ablations were performed to achieve complete isolation of this vein The left inferior pulmonary vein also required multiple lesions for complete isolation secondary to thick pedicles. This is also very large vein This aspect of the procedure required extra time for complete isolation of these 3 veins, using multiple cryo ablations Despite him pleat isolation of all pulmonary veins and a left atrial roof line, she remained in atrial fibrillation T cardioversion was performed with a 200 J biphasic shock to sinus bradycardia Cine fluoroscopy was performed at the very end of the procedure to confirm movement of both diaphragms with inspiration and expiration At the end of the procedure the patient was extubated Venous sheaths were removed and hemostasis assured with a closure device PROCEDURES PERFORMED Diagnostic EP study CS pacing and recording Left and right transseptal catheterization Catheter the mapping of the tachycardia Intracardiac echocardiography Pulmonary vein isolation with transseptal and comprehensive EPS, 79302 Left atrial roof line, +[id number] Electrical cardioversion with a synchronized shock across the chest [id number] Increase procedures services as described above
--- NOTE | 2022-11-13 18:46 | P.PRLE ---
RE: Denisse Licea Dear Ashley Salcedo underwent an A. fib ablation with cryoablation of the pulmonary veins and ablation of the left atrial roof successfully Hopefully she maintains sinus rhythm with this On intracardiac echo there was no evidence for intracardiac thrombus LV function has normalized She will continue ELIQUIS a lifelong Thank you for entrusting me with the care of the patient Warm regards Sincerely Armando Chung
[2022-11-13] MEDS: APIXABAN 5 MG TAB PO SCH (20:42)
[2022-11-14] MEDS: APIXABAN 5 MG TAB PO SCH (07:29)
[2022-11-14 07:50] VITALS: BP 137/90; PULSE 88; RESP 17; TEMP 98.2
--- NOTE | 2022-11-14 08:05 | P.DS ---
Providers Attending physician: Armando Chung Primary care physician: [facility] Course: Patient is sitting up in a chair. 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 Gold and a week Plan - Discharge Summary Discharge Rx Participant: No New Discharge Prescriptions: New RX: Metoprolol Succinate [Metoprolol Succinate ER] 25 mg PO DAILY #90 tab Discontinued RX: lisinopriL [Zestril] 2.5 mg PO DAILY RX: Metoprolol Tartrate [Lopressor] 100 mg PO DAILY No Action RX: Spironolactone [Aldactone] 25 mg PO DAILY #30 tab RX: Apixaban [Eliquis] 5 mg PO BID #60 tab Discharge Medication List RX: Apixaban [Eliquis] 5 mg PO BID #60 tab 01/31/22 [Rx] RX: Spironolactone [Aldactone] 25 mg PO DAILY #30 tab 01/31/22 [Rx] RX: Metoprolol Succinate [Metoprolol Succinate ER] 25 mg PO DAILY #90 tab 11/13/22 [Rx] Follow up Appointment(s)/Referral(s): Geremias Gold MD [STAFF PHYSICIAN] - 1 Week Patient Instructions/Handouts: A-fib (Atrial Fibrillation) (DC) Activity/Diet/Wound Care/Special Instructions: Post EP study - Ablation instructions 1. Keep access sites dry for 2 days. 2. No heavy lifting or straining for 2 days. 3. Avoid bending the hips repeatedly for 2 days. 4. You may go up and down stairs slowly Call if the following is noted 1. Bleeding, increasing swelling or pain at the access sites. 2. Increasing chest discomfort, especially upon taking a deep breath. 3. Increasing shortness of breath, at rest or with exertion. 4. Undue cough / phlegm 5. Difficulty or pain while swallowing. 6. Pain or change in color in the extremities. 7. Fever, chills, rigors. 8. Increasing headache or neurologic symptoms. 9. Dizziness, fainting, palpitations Continue ELIQUIS 5 mg twice daily Continue spironolactone Change Lopressor to metoprolol succinate 25 mg by mouth daily Stop lisinopril, a she has episodes of hypotension Follow-up Dr. Gold and week Discharge Disposition: HOME SELF-CARE
[2022-11-14] MEDS ORDERED: SPIRONOLACTONE 25 MG TAB PO SCH (09:00)
[2022-11-14] MEDS ORDERED: METOPROLOL SUCCINATE (ER) 25 MG TAB.ER.24H PO SCH (09:00)
== END 2022-11-14 09:40 | disposition home or self-care (01) ==
LOC: CATHEP 13:05 → 6NMEDSUR 18:54 → CATHEP 11-14 09:40
PROVIDERS: ATTEND Internal Medicine Clinical Cardiac Electrophysiology
DX: Z79.01 Long term (current) use of anticoagulants (principal); I34.0 Nonrheumatic mitral (valve) insufficiency; E78.5 Hyperlipidemia, unspecified; Z79.899 Other long term (current) drug therapy
CPT/HCPCS: 92960; 93656; 93657; 85025; C1894 ×2; C1769 ×4; C1760; C1730 ×2; C1759; C1893; C1733; C1766; J2250; J1644 ×2; J2001; J3010; J2370; Q9967

== ENCOUNTER 2022-11-15 06:07 | Emergency (ER) | payer BC ==
[2022-11-15 06:14] VITALS: TEMP 98.6
--- NOTE | 2022-11-15 06:31 | ED ---
General Adult HPI - General Chief complaint: Recheck/Abnormal Lab/Rx Stated complaint: bleeding incision Time Seen by Provider: 11/15/22 06:16 Source: patient Mode of arrival: ambulatory Limitations: no limitations - History of Present Illness Initial comments: 57 year-old female patient who is post op day #2 after having cardiac ablation for Afib with Dr. Chung, presents to the emergency department today for bleeding from her right groin puncture wound. States that she had some bleeding last night starting around 9pm. They changed the bandage and when she woke this morning the bandage and her underwear were soaked with blood. She denies any pain, discomfort, or swelling to the site. She is taking Eliquis and was told she was given additional anticoagulation during the procedure. She has had no difficulty with the left groin puncture site. Denies any chest pain, palpitations, or shortness of breath. - Related Data Previous Rx's Medication Instructions Recorded Apixaban [Eliquis] 5 mg PO BID #60 tab 01/31/22 Spironolactone [Aldactone] 25 mg PO DAILY #30 tab 01/31/22 Metoprolol Succinate [Metoprolol 25 mg PO DAILY #90 tab 11/13/22 Succinate ER] Allergies Allergy/AdvReac Type Severity Reaction Status Date / Time No Known Allergies Allergy Verified 11/15/22 06:12 Review of Systems ROS Statement: Those systems with pertinent positive or pertinent negative responses have been documented in the HPI. ROS Other: All systems not noted in ROS Statement are negative. Past Medical History Past Medical History: Atrial Fibrillation, CVA/TIA, Hypertension, Memory Impairment, Thyroid Disorder Additional Past Medical History / Comment(s): see Sheldon Hilario&Clarissa, stroke 01/24/22 cognition and memory issues.has problems writing. ( came in to ER with thyroid storm) sees Dr Hoffmann, now off thyroid med. ankle achiness History of Any Multi-Drug Resistant Organisms: None Reported Past Surgical History: No Surgical Hx Reported Additional Past Surgical History / Comment(s): cardioversion Past Anesthesia/Blood Transfusion Reactions: No Reported Reaction Additional Past Anesthesia/Blood Transfusion Reaction / Comment(s): no blood transfusion Past Psychological History: Anxiety, Depression Smoking Status: Never smoker Past Alcohol Use History: Occasional Past Drug Use History: None Reported - Past Family History Father History Unknown: Yes Additional Family Medical History / Comment(s): pt adopted Mother Family Medical History: Cancer Additional Family Medical History / Comment(s): cancer unknown. pt adopted General Exam Limitations: no limitations General appearance: alert, in no apparent distress, other (This is a well developed, well nourished adult female patient. Somewhat anxious. ) Respiratory exam: Present: normal lung sounds bilaterally. Absent: respiratory distress, wheezes, rales, rhonchi, stridor Cardiovascular Exam: Present: normal rhythm, tachycardia, normal heart sounds. Absent: systolic murmur, diastolic murmur, rubs, gallop, clicks Extremities exam: Present: full ROM, normal capillary refill, other (There is some mild purplish ecchymosis noted to the right groin, small puncture wound, slight oozing of blood. Area is soft and non-tender. ). Absent: tenderness, pedal edema, joint swelling, calf tenderness Neurological exam: Present: alert, oriented X3, CN II-XII intact Psychiatric exam: Present: normal affect, normal mood Skin exam: Present: warm, dry, intact, normal color. Absent: rash Course Vital Signs 11/15/22 11/15/22 06:12 06:57 Temperature 98.6 F Pulse Rate 119 H 92 Respiratory 18 16 Rate Blood Pressure 165/88 152/100 O2 Sat by Pulse 97 95 Oximetry - Reevaluation(s) Reevaluation #1: 11/15/22 06:25 Applied pressure dressing to right groin. Will recheck in 30 minutes after ambulation. Medical Decision Making - Medical Decision Making 57 year-old female patient presented to ER for right groin puncture wound bleeding. She is post op day #2 after cardiac ablation. Physical exam did reveal mild oozing from right groin site. Area was soft and non-tender. No chest symptoms. Pressure dressing applied for 30 minutes. Patient did ambulate through the department. Wound checked an no further bleeding noted. Reapplied pressure dressing, instructed to remove in 2 days. They are instructed to follow up with control valve mechanic Thursday or Thursday. Return for any uncontrolled bleeding or other concerning symptoms. Patient and verbalized understanding and agreed with this plan. Was pt. sent in by a medical professional or institution (, PA, FAMILY LAW MEDIATOR, urgent care, hospital, or [facility]...) When possible be specific @ -[No] Did you speak to anyone other than the patient for history (EMS, parent, family, police, friend...)? What history was obtained from this source @ - Did you review nursing and triage notes (agree or disagree)? Why? @ -[I reviewed and agree with nursing and triage notes] Were old charts reviewed (outside hosp., previous admission, EMS record, old EKG, old radiological studies, urgent care reports/EKG's, [facility] records)? Report findings @ -[Yes, procedure note and discharge summary from Cardiac EP procedure/study. Patient had cardiac ablation with cardioversion on 11/13/22. No complications with groin punctures at time of discharge.] Differential Diagnosis (chest pain, altered mental status, abdominal pain women, abdominal pain men, vaginal bleeding, weakness, fever, dyspnea, syncope, headache, dizziness, GI bleed, back pain, seizure, CVA, palpatations, mental health)? @ -[not applicable] EKG interpreted by me (3pts min.). @ -[None done] X-rays interpreted by me (1pt min.). @ -[None done] CT interpreted by me (1pt min.). @ -[None done] U/S interpreted by me (1pt. min.). @ -[None done] What testing was considered but not performed or refused? (CT, X-rays, U/S, labs)? Why? @ -[None] What meds were considered but not given or refused? Why? @ -[None] Did you discuss the management of the patient with other professionals (miya dan i.e., Dr., PA, FAMILY LAW MEDIATOR, lab, RT, psych nurse, child protective services social worker, splunk architect, teacher, customer service security officer, block and case maker)? Give summary @ -[Yes, discussed with attending physician Dr. Foster.] Was smoking cessation discussed for >3mins.? @ -[No] Was critical care preformed (if so, how long)? @ -[No] Were there social determinants of health that impacted care today? How? (Homelessness, low income, unemployed, alcoholism, drug addiction, transportation, low edu. Level, literacy, decrease access to med. care, snf, rehab)? @ -[No] Was there de-escalation of care discussed even if they declined (Discuss DNR or withdrawal of care, Hospice)? DNR status @ -[No] What co-morbidities impacted this encounter? (DM, HTN, Smoking, COPD, CAD, Cancer, CVA, ARF, Chemo, Hep., AIDS, mental health diagnosis, sleep apnea, morbid obesity)? @ -[Afib with secondary hypercoagulable state requiring anticoagulation.] Was patient admitted / discharged? Hospital course, mention meds given and route, prescriptions, significant lab abnormalities, going to OR and other pertinent info. @ -[Patient discharged home to follow up with control valve mechanic Thursday or Thursday. Instructions regarding wound care and pressure dressings.] Undiagnosed new problem with uncertain prognosis? @ -[No] Drug Therapy requiring intensive monitoring for toxicity (Heparin, Nitro, Insulin, Cardizem)? @ -[No] Were any procedures done? @ -[No] Diagnosis/symptom? @ -[Post-op bleeding from right groin puncture.] Acute, or Chronic, or Acute on Chronic? @ -[Acute] Uncomplicated (without systemic symptoms) or Complicated (systemic symptoms)? @ -[Uncomplicated. Patient initially had elevated heart rate and blood pressure but admitted to significant anxiety history. Repeat was improved.] Side effects of treatment? @ -[No] Exacerbation, Progression, or Severe Exacerbation? @ -[No] Poses a threat to life or bodily function? How? (Chest pain, [place], [place], pneumonia, PE, COPD, DKA, ARF, appy, cholecystitis, CVA, Diverticulitis, Homicidal, Suicidal, threat to staff... and all critical care pts) @ -[No] Disposition Clinical Impression: Post-op bleeding Disposition: HOME SELF-CARE Condition: Good Instructions (If sedation given, give patient instructions): Acute Wound Care (ED) Additional Instructions: Keep wound clean and dry. If bleeding starts again apply pressure dressing for at least 30 minutes. Call control valve mechanic on Thursday/Thursday to inform them of your ER visit. Return if you are unable to control bleeding at home. Is patient prescribed a controlled substance at d/c from ED?: No Referrals: Ashley Bee MD [Primary Care Provider] - 1-2 days Armando Chung MD [STAFF PHYSICIAN] - 1-2 days
[2022-11-15 06:59] VITALS: BP 152/100; PULSE 92; RESP 16
== END 2022-11-15 07:21 | disposition home or self-care (01) ==
LOC: EC 06:07
DX: L76.22 Postprocedural hemorrhage of skin and subcutaneous tissue following other procedure (principal); I10 Essential (primary) hypertension; I48.91 Unspecified atrial fibrillation; F41.9 Anxiety disorder, unspecified; F32.A Depression, unspecified
CPT/HCPCS: 99283